=== PATIENT | female | born 1990 | race Caucasian/White ===

== ENCOUNTER → 2019-11-02 | Outpatient (CLI) | payer SELFPAY | END | disposition home or self-care (01) | PROVIDERS: Referring Provider Obstetrics & Gynecology; Visit Provider Obstetrics & Gynecology | DX: O99.282 Endocrine, nutritional and metabolic diseases complicating pregnancy, second trimester (principal); E05.90 Thyrotoxicosis, unspecified without thyrotoxic crisis or storm; Z3A.00 Weeks of gestation of pregnancy not specified | CPT/HCPCS: 36415 ==

== ENCOUNTER → 2020-02-17 | Outpatient (CLI) | payer OTHER, SELFPAY ==
[2020-02-17 12:12] LABS: Hematocrit 32.6 % (37-47); Mean Corp Hgb Conc 30.7 g/dL (32-36); Mean Corpuscular Hgb 25.6 pg (27.0-32.0); Mean Corpuscular Volume 83.4 fL (81-99); Mean Platelet Vol. 10.5 fl (6.2-12.0); Platelet Count 405 K/mm3 (150-450); RBC Distribution Width CV 16.3 % (11.6-14.6); RBC Distribution Width SD 48.4 fl (35.1-43.9); Red Blood Count 3.91 M/mm3 (4.2-5.4); White Blood Count 10.7 K/mm3 (4.4-11.0)
[2020-02-17 12:23] LABS: Prothrombin Time (Protime)PT. 13.2 SECONDS (11.7-14.9)
[2020-02-17 12:24] LABS: Partial Thromboplast Time 26.3 Seconds (24.1-36.2)
[2020-02-17 12:44] LABS: AST(SGOT) 14 U/L (15-37); Alanine Aminotransfer ALT/SGPT 14 U/L (13-56); Creatinine, Serum 0.47 mg/dL (0.55-1.02); EST Glomerular Filtration Rate 167 mL/min (>60); Est Glom Filt Rate - Afr Amer 202 mL/min (>60); Uric Acid 3.8 mg/dL (2.6-6.0)
== END | disposition home or self-care (01) ==
PROVIDERS: Visit Provider Obstetrics & Gynecology
DX: O13.3 Gestational [pregnancy-induced] hypertension without significant proteinuria, third trimester (principal); Z3A.00 Weeks of gestation of pregnancy not specified
CPT/HCPCS: 36415; 82565; 84450; 84460; 84550; 85027; 85610; 85730

== ENCOUNTER → 2020-02-18 | Outpatient (CLI) | payer OTHER, SELFPAY ==
[2020-02-18 10:37] LABS: 24 Hour Urine Protein 159.6 mg/24HR (<150 MG/24HR); 24HR. UA Prot. Total Volume 2800 mL; Urine Protein (24 Hour) < 6.0 mg/dL (<11.9)
== END | disposition home or self-care (01) ==
PROVIDERS: Referring Provider Obstetrics & Gynecology; Visit Provider Obstetrics & Gynecology
DX: O13.3 Gestational [pregnancy-induced] hypertension without significant proteinuria, third trimester (principal); Z3A.00 Weeks of gestation of pregnancy not specified
CPT/HCPCS: 81050; 84156

== ENCOUNTER 2020-02-23 03:30 | Inpatient (IN) | payer OTHER, MEDICAID, SELFPAY ==
[2020-02-23] VITALS (49 sets, daily range): BP systolic 122–165; BP diastolic 58–98; PULSE 68–115; RESP 14–16; TEMP 36.6–37.3; O2SAT 90–100; BMI 33.5
[2020-02-23 03:23] LABS: ROM Internal Control Test YES-OK TO RESULT pt. (Internal QC)
[2020-02-23 03:25] LABS: ROM Patient Test POSITIVE (Negative)
[2020-02-23] MEDS: Lactated Ringers 1,000 ML 50 ML IV (04:00)
[2020-02-23] MEDS: Betamethasone/Betamethasone 30 MG/5 ML Vial 12 MG IM (04:09)
[2020-02-23 04:15] LABS: Absolute Lymphocyte Count 2.17 X10^3/uL (0.83-4.51); Absolute Neutrophil Count 9.3 X10^3/uL (2.0-7.7); Basophil# 0.03 X10^3/uL; Basophil% 0.2 % (0-1); Eosinophil# 0.15 X10^3/uL; Eosinophils% 1.2 % (0-5); Hematocrit 30.6 % (37-47); Hemoglobin 9.5 g/dL (12.0-15.0); Lymphocyte # 2.17 X10^3/ul (4.0); Lymphocyte % 16.7 % (19-41); Mean Corpuscular Hgb 25.3 pg (27.0-32.0); Mean Corpuscular Volume 81.4 fL (81-99); Monocyte# 1.26 X10^3/uL; Monocyte% 9.7 % (0-10); NRBC Flagged by Analyzer 0 % (0-5); Neutrophil # 9.27 X10^3/uL (2.7-7.7); Neutrophil % 71.3 % (47-70); Platelet Count 402 K/mm3 (150-450); RBC Distribution Width CV 16.3 % (11.6-14.6); Red Blood Count 3.76 M/mm3 (4.2-5.4)
--- NOTE | 2020-02-23 06:17 | PCM.HP.OB ---
- Problem List (1) 36 weeks gestation of Status: Acute (2) PROM (premature rupture of membranes) Status: Acute Qualifiers: PROM onset of labor timing: unspecified duration between rupture of membranes and onset of labor PROM gestational age: -third trimester Qualified Code(s): O42.913 - premature rupture of membranes, unspecified as to length of time between rupture and onset of labor, third trimester History Date of Admission: 02/23/20 Final NITIN: 03/20/20 Final NITIN Source: US <20 weeks Gestational age: 36 Weeks and 2 Days History of this : This is a 30 year-old, G [2], P [0010], at 36.2 weeks gestational age presenting with c/o leaking of fluid 0145h. Reports contractions every 10 minutes. issues: -Distance between pulmonary artery and aorta extended. ECHO with MFM wnl. Aneuploidy screening declined. Declined Peds Cards ECHO. Peds at delivery. -Uterine synchiae vs. remnant of vanishing twin gestation -Iron deficiency anemia -Possible placental accessory lobe -LGSIL PAP Surgical History: Surgical History (Last Updated 02/23/20 @ 06:[address] Leti Gr MD) H/O dilation and curettage Z98.890 termination 11/2018 History of tonsillectomy Z90.89 Allergies No Known Allergies Allergy (Verified 02/23/20 02:54) Home Medications: Home Medications Vits [Prenatabs FA] 1 tab PO DAILY 02/23/20 Smoking Status: Former smoker Alcohol: None Number of Fetus(es): 1 NST - FHR Rate Baby A Baseline: 130 Variability:: Moderate Accelerations:: 15 x 15 Decelerations:: None NST Reactive:: Yes FHR Category:: Category I Uterine Activity:: 07/01 History Past Pregnancies: Past Pregnancies Delivery Date Name GA/ Weeks Outcome Route Wt Infant Sex Labor Length Anesthesia Delivery Location 11/2018 13 Elective TOP Suction D&C [facility] Labs: Mom's Problem List Problem Status Onset Code 36 weeks gestation of Acute Z3A.36 PROM (premature rupture of membranes) Acute O42.90 Mom's Labs & Results 02/23/20 02/23/20 02/23/20 03:06 03:55 03:55 WBC 13.0 H RBC 3.76 L Hgb 9.5 L Hct 30.6 L MCV 81.4 MCH 25.3 L MCHC 31.0 L RDW Std Deviation 48.0 H RDW Coeff of Vicky 16.3 H Plt Count 402 MPV 10.0 Immature Gran % (Auto) 0.900 Neut % (Auto) 71.3 H Lymph % (Auto) 16.7 L [place] % (Auto) 9.7 Eos % (Auto) 1.2 Baso % (Auto) 0.2 Absolute Neuts (auto) 9.3 H Absolute Lymphs (auto) 2.17 Nucleated RBC % 0 Vag Amniotic Fld Detect POSITIVE H Blood Type B POSITIVE Antibody Screen NEGATIVE Course Did the patient receive Yes care? Labs Blood Type: B RH: POSITIVE RPR/VDRL/Syphilis Nonreactive Rubella status Immune HbSAg Negative Date Done: 08/11/19 Chlamydia Negative Gonorrhea Negative HIV/AIDS Non-Reactive Other Lab Procedures/Results/ GBS collect 02/21 in office Comments: Current Obstetrical History Gestational Diabetes No Incompetent Cervix No Infertility No IUGR No Macrosomia No Hypertension/Pre-eclampsia Yes: pt states she has had hypertension the past couple of weeks Placenta Previa/Abruption No PTL/PROM No Uterine anomaly No Oligohydramnios No Polyhydramnios No Multiple gestation No: Past Medical History Asthma No Diabetes No Hypertension No Heart disease No Mitral valve prolapse No Neurologic/Seizure disorder/ No Migraines Kidney disease No Liver disease No Varicosities No Clotting disorders/Hx of DVT No Thyroid Dysfunction No Other medical diseases No Psychiatric disorders No Major trauma No Abnormal PAP smear Yes: 07/2019, will look into after Sleep apnea No Mammogram in the last 2 years No Social History Marital Status: SINGLE Alleged father oTnio Hx Smoking Yes Smoking Status Former smoker How long have you used vaped last year and only last year per pt, hx substances (years)? of marijuana use 05/2019 per chart Expected Delivery Method: Spontaneous Vaginal Describe any other labor & delivery plans:: Betamethasone. Pitocin. BABY CATCH - Tonio. planned Number of Visits: 10 Review of Systems Constitutional: Denies: Chills, Fever HEENT: Denies: Head Aches, Visual Changes Cardiovascular: Denies: Chest Pain Respiratory: Denies: Cough, Shortness of Breath Gastrointestinal: Denies: Abdominal Pain, Nausea, Vomiting Gynecological: Denies: Vaginal bleeding Physical Exam Vitals: Vital Signs Temp Pulse BP Pulse Ox 97.9 F 85 140/95 H 98 02/23/20 05:49 02/23/20 06:02 02/23/20 06:02 02/23/20 05:49 General: Alert, Oriented x3, Cooperative, No apparent distress HEENT: Atraumatic, Normocephalic Cardiovascular: Regular rate, Regular Rhythm, Normal S1, Normal S2 Lungs: Clear to auscultation, Normal air movement Abdomen: Soft, Non Tender, Non-Distended, Gravid Extremities:: No edema, No tenderness/swelling Neurological: Neuro grossly intact Estimated gestational size: Appropriate for gestational size Presentation: Cephalic Cervix Dilation (cm): 2 Effacement (%): 40 - per RN exam Assessment/Plan All Active Problems 36 weeks gestation of (Acute) PROM (premature rupture of membranes) (Acute) This is a 30 year-old, G [2], P [0], at 36 2/7 weeks gestational age with PROM, Cat I FHR. -Reviewed low however increased risk for breathing difficulties including RDS due to late term delivery, as well as potential feeding/coordination difficulties and hypoglycemia. Betamethasone administered for FLM. -Advised pitocin with review of r/b/i. Patient agrees with plan. IOL risks and admission consents reviewed. -Outpatient GBS culture pending - Ampicillin -Patient and partner given opportunity to ask questions and questions answered to their satisfaction. -Maternal and statuses reassuring.
[2020-02-23] MEDS: Oxytocin 30 units/NS 500 ml 30 UNITS/500 ML IV.SOLN IV (06:23)
--- NOTE | 2020-02-23 08:39 | PCM.PN.BLA ---
STROKE Vital Signs/Narrative: Vital Signs Temp Pulse BP Pulse Ox 02/23/20 08:04 82 127/58 H 02/23/20 07:16 98.1 F 80 144/91 H 02/23/20 06:45 83 130/88 H 02/23/20 06:02 85 140/95 H 02/23/20 05:49 97.9 F 79 98
[2020-02-23] MEDS: Lactated Ringers 500 ML 999 ML IV (10:21)
[2020-02-23] MEDS: fentaNYL-bupivacaine (epidural) 100 ML BAG EPIDURAL (11:42)
[2020-02-23] MEDS: Lactated Ringers 1,000 ML 200 ML IV (11:43)
--- NOTE | 2020-02-23 13:23 | PCM.PN.BLA ---
Progress Note Returned call to RN. Patient comfortable with epidural. Questionable late heart decelerations with recent exam /-1. Pitocin at 10mu/min. Contractions previously q2min, however difficulty tracing on patient side. On my reviewed FHR 130, minimal variability, + accelerations prior to recent 10-15 minutes with decelerations. Patient to be repositioned and will reattempt IUPC placement. STROKE Vital Signs/Narrative: Vital Signs Temp Pulse BP Pulse Ox 02/23/20 12:39 89 122/75 H 02/23/20 12:38 98.1 F 02/23/20 11:45 77 134/82 H 02/23/20 11:44 99 02/23/20 11:39 83 129/71 H 99 02/23/20 11:34 78 129/72 H 100 02/23/20 11:33 88 90 02/23/20 11:30 96 137/83 H 02/23/20 11:29 99 02/23/20 11:25 111 H 134/86 H 02/23/20 11:24 105 H 99 02/23/20 11:20 103 H 134/79 H 02/23/20 11:19 99 02/23/20 11:14 97 142/86 H 100 02/23/20 11:10 68 151/98 H 02/23/20 11:09 70 100 02/23/20 11:04 88 100 02/23/20 10:04 97.8 F 81 132/71 H 97
--- NOTE | 2020-02-23 15:40 | PCM.PN.BLA ---
Progress Note Progress Note Call from RN Pt with late decelerations with pushing. Pt is making progress with each push. Vital Signs Temp Pulse BP Pulse Ox 02/23/20 15:30 98.6 F 105 H 145/85 H 97 02/23/20 14:57 108 H 141/75 H 02/23/20 14:56 98.2 F 98 02/23/20 13:38 97 142/93 H 02/23/20 13:37 98.0 F 02/23/20 12:39 89 122/75 H 02/23/20 12:38 98.1 F 02/23/20 11:45 77 134/82 H 02/23/20 11:44 99 02/23/20 11:39 83 129/71 H 99 02/23/20 11:34 78 129/72 H 100 02/23/20 11:33 88 90 02/23/20 11:30 96 137/83 H 02/23/20 11:29 99 02/23/20 11:25 111 H 134/86 H 02/23/20 11:24 105 H 99 02/23/20 11:20 103 H 134/79 H 02/23/20 11:19 99 02/23/20 11:14 97 142/86 H 100 02/23/20 11:10 68 151/98 H 02/23/20 11:09 70 100 02/23/20 11:04 88 100 02/23/20 10:04 97.8 F 81 132/71 H 97 02/23/20 09:11 86 127/84 H 02/23/20 09:10 97.9 F 97 02/23/20 08:04 82 127/58 H 02/23/20 07:16 98.1 F 80 144/91 H 02/23/20 06:45 83 130/88 H 02/23/20 06:02 85 140/95 H 02/23/20 05:49 97.9 F 79 98 Plan: Reviewed tracing, 130/mod ricki/-accel/late decels with pushing. Pt is making progress with each push, now CE: 10/100/+2 to +3. Based on progress being made and nearing delivery will continue pushing. Will discuss operative delivery with pt if needed STROKE Vital Signs/Narrative: Vital Signs Temp Pulse BP Pulse Ox 02/23/20 15:30 98.6 F 105 H 145/85 H 97 02/23/20 14:57 108 H 141/75 H 02/23/20 14:56 98.2 F 98 02/23/20 13:38 97 142/93 H 02/23/20 13:37 98.0 F 02/23/20 12:39 89 122/75 H 02/23/20 12:38 98.1 F 02/23/20 11:45 77 134/82 H 02/23/20 11:44 99
[2020-02-23] MEDS: Oxytocin 30 units/NS 500 ml 30 UNITS/500 ML IV.SOLN 999 UNITS IV (16:41)
--- NOTE | 2020-02-23 17:23 | PCM.OPRPT ---
Vaginal Delivery Maternal Presentation: Spontaneous Rupture of Membranes - PPROM Method of Induction: Pitocin Medical Reason for Induction: Premature Rupture of Membranes Amniotic Membrane Rupture Type: Spontaneous Amniotic Fluid Description: Clear Final NITIN: 03/20/20 Final NITIN Source: US <20 weeks Gestational age: 36 Weeks and 2 Days [place] doctor who attended delivery (if requested by OB): Maria Guadalupe Luther Date of Procedure: 02/23/20 Pre-Operative Diagnosis: PPROM, Cardiac Foci Post-Operative Diagnosis: PPROM, Cardiac Foci Surgery/ Procedure Performed: Spontaneous Vaginal Delivery Type of Anesthesia: Epidural Description of Procedure: of a viable female , cephalic. Head and shoulders delivered with ease. Cord cut and clamped x2. Baby handed to mom. NICU present for delivery. Placenta delivered via cord traction and fundal massage. First degree and right labial laceration noted and repaired in typical fashion. EBL 250cc APGARs 8/9 Medications given after delivery: IV Pitocin
[2020-02-24] VITALS (14 sets, daily range): BP systolic 126–150; BP diastolic 74–96; PULSE 60–94; RESP 15–16; TEMP 36.3–36.9; O2SAT 82–99
[2020-02-24] MEDS: Acetaminophen 500 MG Tablet 1000 MG PO (02:55)
--- NOTE | 2020-02-24 08:21 | PN.OBGYN_ITS ---
Patient Problems: Active and Suspected Problems 36 weeks gestation of (Acute) PROM (premature rupture of membranes) (Acute) Subjective: Objective: No overnight complaints. Pain well controlled. Normal lochia. Denies chest pain, shortness of breath, nausea vomiting. - Physical Exam Vitals/I&O's: Vital Signs Temp Pulse Resp BP Pulse Ox 98.5 F 93 16 138/82 H 98 02/24/20 03:06 02/24/20 03:06 02/24/20 03:06 02/24/20 03:06 02/23/20 18:47 Oxygen Delivery Method Room Air Weight: 207 lb 6.4 oz Body Mass Index (BMI) 33.5 Intake and Output for Last 24 Hours 02/22/20 02/23/20 02/24/20 23:59 23:59 23:59 Intake Total 3060.16 / 3060.16 Output Total 3100 / 3100 Balance -39.84 / -39.84 General: Oriented x3, Cooperative HEENT: Atraumatic, Normocephalic Oral: Moist Mucosa Neck: Supple Abdomen: Non Tender, Non-Distended, Gravid - Firm at umbilicus Psych/Mental Status: Normal Affect, Appropriate, Alert and oriented to time, place, person, mood and affect Current Medications Acetaminophen (Tylenol) 1,000 mg PO Q8H PRN PRN PRN Reason: Pain Score 1-10/10 Last Admin: 02/24/20 02:55 Dose: 1,000 mg Documented by: Bisacodyl (Dulcolax) 10 mg RECTAL UD PRN PRN Reason: If no BM Dibucaine (Dibucaine) 1 applic TOPICAL TID PRN PRN; Protocol PRN Reason: Discomfort Hydrocortisone (Hytone) 1 applic TOPICAL TID PRN PRN; Protocol PRN Reason: Discomfort Ibuprofen (Motrin) 600 mg PO Q6H PRN PRN PRN Reason: Pain Score 1-10/10 Methylergonovine Maleate (Methergine) 0.2 mg IM X1 PRN PRN Reason: Excess bleeding/uterine atony Ondansetron HCl (Zofran) 4 mg IV Q4H PRN PRN PRN Reason: Nausea Senna/Docusate Sodium (Senokot-S, Yarely-Colace) 1 - 2 tablet PO DAILY PRN PRN PRN Reason: Constipation Simethicone (Mylicon) 80 mg PO PCHS PRN PRN Reason: Indigestion/Stomach pain Sodium Chloride () 5 - 15 ml IV UD PRN PRN Reason: SALINE FLUSH Medical Necessity - Tobacco Use Smoking Status: Former smoker Assessment/Plan All Active Problems 36 weeks gestation of (Acute) PROM (premature rupture of membranes) (Acute) day 1 status post spontaneous vaginal delivery after PPROM at 36 weeks gestation. Breast-feeding. For Nexplanon placement at visit. Pain well controlled on Tylenol and ibuprofen. If okay with etl data architect okay to DC home today.
--- NOTE | 2020-02-24 08:25 | DCINST_ITS ---
Discharge Activity: Return to Normal Activity, May Shower May resume sexual activity in: 6 weeks Weight Bearing Status: Weight bearing as tolerated Call your doctor if your incision/area has: Sudden Increased Bleeding, Foul Smelling Discharge Call your doctor if you observe: Fever of 101 or Higher, Shortness of breath, Chest pain Additional Instructions: If you experience any of the following, contact your healthcare provider. * Bleeding that soaks a pad every hour for 2 hours * Fever 100.4 or higher * Unrelieved incision or abdominal pain * Swelling, redness, discharge or bleeding from your incision or episi otomy site * Your incision begins to separate * Problems urinating (including inability to urinate or burning while urinating). * Visual changes * Severe headache * Flu-like symptoms * Pain or redness in one of both of your breasts * Pain, warmth, tenderness or swelling in your legs, especially the calf area * Frequent nausea and vomiting * Symptoms of depression or anxiety If you experience any of the following, call 911 or go to the nearest Emergency Room. * Chest pain * Problems breathing * Seizure activity * Partial or complete paralysis of a body part, slurred speech, weakness or drooping of the face, or a sudden inability to walk or hold your balance Allergies/Adverse Reactions: Allergies No Known Allergies Allergy (Verified 02/23/20 02:54) Medications to take at Discharge Vits [Prenatabs FA] 1 tab PO DAILY 02/23/20 Please Follow Up With: Camille Corrigan CNM When: 6 weeks Primary Care Physician: Care Physician,No Primary [Primary Care Provider] - Test Results: Test results from this visit will be discussed in further detail at your follow- up appointment, if applicable.
--- NOTE | 2020-02-24 08:25 | PCM.DCVAG ---
Discharge Activity: Return to Normal Activity, May Shower May resume sexual activity in: 6 weeks Weight Bearing Status: Weight bearing as tolerated Call your doctor if your incision/area has: Sudden Increased Bleeding, Foul Smelling Discharge Call your doctor if you observe: Fever of 101 or Higher, Shortness of breath, Chest pain Additional Instructions: If you experience any of the following, contact your healthcare provider. Bleeding that soaks a pad every hour for 2 hours Fever 100.4 or higher Unrelieved incision or abdominal pain Swelling, redness, discharge or bleeding from your incision or episiotomy site Your incision begins to separate Problems urinating (including inability to urinate or burning while urinating). Visual changes Severe headache Flu-like symptoms Pain or redness in one of both of your breasts Pain, warmth, tenderness or swelling in your legs, especially the calf area Frequent nausea and vomiting Symptoms of depression or anxiety If you experience any of the following, call 911 or go to the nearest Emergency Room. Chest pain Problems breathing Seizure activity Partial or complete paralysis of a body part, slurred speech, weakness or drooping of the face, or a sudden inability to walk or hold your balance Allergies/Adverse Reactions: Allergies No Known Allergies Allergy (Verified 02/23/20 02:54) Medications to take at Discharge Vits [Prenatabs FA] 1 tab PO DAILY 02/23/20 Please Follow Up With: Camille Corrigan CNM When: 6 weeks Primary Care Physician: Care Physician,No Primary [Primary Care Provider] - Test Results: Test results from this visit will be discussed in further detail at your follow-up appointment, if applicable.
[2020-02-24] MEDS: Ibuprofen 600 MG Tablet PO ×2 (10:13→19:49)
--- NOTE | 2020-02-24 14:12 | NURSING ---
REVIEWED STUDENT'S CHARTING FOR COMPLETENESS
--- NOTE | 2020-02-24 16:52 | NURSING ---
This RN agrees with Wind Operations Supervisor's charting.
[2020-02-25] VITALS (13 sets, daily range): BP systolic 135–156; BP diastolic 80–104; PULSE 45–78; RESP 16; TEMP 36.6–36.8; O2SAT 82–100
[2020-02-25] MEDS: Ibuprofen 600 MG Tablet PO ×3 (03:39→20:36)
--- NOTE | 2020-02-25 07:39 | PN.OBGYN_ITS ---
Patient Problems: Active and Suspected Problems 36 weeks gestation of (Acute) PROM (premature rupture of membranes) (Acute) Subjective: No issues overnight. Infant having phototherapy. She is anxious for the 10 o'clock level. She denies significant pain. COntinues Ibuprofen. Denies heavy lochia or lower extremity swelling. Infant latches and nurses well. Objective: AVSS - Physical Exam Vitals/I&O's: Vital Signs Temp Pulse Resp BP Pulse Ox 98.3 F 61 16 139/89 H 99 02/25/20 07:35 02/25/20 07:35 02/25/20 07:35 02/25/20 07:35 02/25/20 07:35 Oxygen Delivery Method Room Air Weight: 94.075 kg Body Mass Index (BMI) 33.5 Intake and Output for Last 24 Hours 02/23/20 02/24/20 02/25/20 23:59 23:59 23:59 Intake Total 3060.16 / 3060.16 Output Total 3100 / 3100 Balance -39.84 / -39.84 General: Alert, Oriented x3, Cooperative, No apparent distress HEENT: Atraumatic, Normocephalic Lungs: Normal air movement Cardiovascular: Regular rate, Regular Rhythm, Normal S1, Normal S2, - - HR 60 bpm Abdomen: Soft, Non Tender, Non-Distended, - - Fundus firm at umbulicus, lochia scant Extremities: No edema, No Calf Tenderness Neurological: Neuro grossly intact Psych/Mental Status: Normal Affect, Appropriate, Alert and oriented to time, grace ce, person, mood and affect Current Medications Acetaminophen (Tylenol) 1,000 mg PO Q8H PRN PRN PRN Reason: Pain Score 1-1010 Last Admin: 02/24/20 02:55 Dose: 1,000 mg Documented by: Bisacodyl (Dulcolax) 10 mg RECTAL UD PRN PRN Reason: If no BM Dibucaine (Dibucaine) 1 applic TOPICAL TID PRN PRN; Protocol PRN Reason: Discomfort Hydrocortisone (Hytone) 1 applic TOPICAL TID PRN PRN; Protocol PRN Reason: Discomfort Ibuprofen (Motrin) 600 mg PO Q6H PRN PRN PRN Reason: Pain Score 1-10/10 Last Admin: 02/25/20 03:39 Dose: 600 mg Documented by: Methylergonovine Maleate (Methergine) 0.2 mg IM X1 PRN PRN Reason: Excess bleeding/uterine atony Ondansetron HCl (Zofran) 4 mg IV Q4H PRN PRN PRN Reason: Nausea Senna/Docusate Sodium (Senokot-S, Yarely-Colace) 1 - 2 tablet PO DAILY PRN PRN PRN Reason: Constipation Simethicone (Mylicon) 80 mg PO PCHS PRN PRN Reason: Indigestion/Stomach pain Sodium Chloride () 5 - 15 ml IV UD PRN PRN Reason: SALINE FLUSH Medical Necessity - Tobacco Use Smoking Status: Former smoker Assessment/Plan All Active Problems 36 weeks gestation of (Acute) PROM (premature rupture of membranes) (Acute) This is a 30 year-old, G [2], P [0101 PPD # 2 s/p doing well. - -B positive -d/c home today. Will d/c to hotel if infant not discharged
--- NOTE | 2020-02-25 13:27 | NURSING ---
Issue with BP monitor at this time. Monitor continuing to increase in pressure cutting circulation off of patients arm then reading BP as elevated. Vitals cart from clean utility room obtained and BP checked again. Result 140/95 recorded. Patient reports this being a more normal BP for her. Denies signs/symptoms of hypertension. Will continue to monitor.
[2020-02-25] MEDS: Acetaminophen 500 MG Tablet 1000 MG PO (20:39)
[2020-02-25 21:57] LABS: Absolute Lymphocyte Count 3.58 X10^3/uL (0.83-4.51); Absolute Neutrophil Count 8.1 X10^3/uL (2.0-7.7); Basophil# 0.07 X10^3/uL; Basophil% 0.5 % (0-1); Hematocrit 32.8 % (37-47); Lymphocyte # 3.58 X10^3/ul (4.0); Lymphocyte % 25.7 % (19-41); Mean Corp Hgb Conc 30.5 g/dL (32-36); Mean Corpuscular Hgb 25.4 pg (27.0-32.0); Mean Corpuscular Volume 83.5 fL (81-99); Mean Platelet Vol. 9.9 fl (6.2-12.0); Monocyte# 1.39 X10^3/uL; NRBC Flagged by Analyzer 0 % (0-5); Neutrophil # 8.07 X10^3/uL (2.7-7.7); Neutrophil % 58.1 % (47-70); Platelet Count 383 K/mm3 (150-450); RBC Distribution Width CV 16.7 % (11.6-14.6); RBC Distribution Width SD 49.4 fl (35.1-43.9); Red Blood Count 3.93 M/mm3 (4.2-5.4); White Blood Count 13.9 K/mm3 (4.4-11.0)
[2020-02-25 22:22] LABS: ALB/GLOB Ratio 0.8 RATIO (0.9-2.4); AST(SGOT) 20 U/L (15-37); Alanine Aminotransfer ALT/SGPT 15 U/L (13-56); Albumin, Serum 2.9 g/dL (3.2-5.0); Alkaline Phosphatase 113 U/L (45-117); Anion Gap 6 (5-15); BUN 8 mg/dL (7-18); BUN/Creat Ratio 17.5 RATIO (10-20); Calcium,Total 9.1 mg/dL (8.5-10.1); Chloride 109 mmol/L (98-107); Creatinine, Serum 0.46 mg/dL (0.55-1.02); EST Glomerular Filtration Rate 173 mL/min (>60); Est Glom Filt Rate - Afr Amer 209 mL/min (>60); Estimated Creatinine Clearance 170.45 ml/min; Globulin 3.8 g/dL (2.2-4.2); Glucose 83 mg/dL (74-106); Potassium 3.6 mmol/L (3.5-5.1); Protein, Total 6.7 g/dL (6.4-8.2); Sodium Level 141 mmol/L (136-145); Uric Acid 4.3 mg/dL (2.6-6.0)
--- NOTE | 2020-02-25 22:57 | DCINST_ITS ---
Discharge Diet: No Restrictions Discharge Activity: Return to Normal Activity, No Restrictions, May Shower, May Take a Tub Bath May resume sexual activity in: 6 weeks Weight Bearing Status: Weight bearing as tolerated Call your doctor if your incision/area has: Sudden Increased Bleeding, Foul Smelling Discharge Additional Instructions: If you experience any of the following, contact your healthcare provider. * Bleeding that soaks a pad every hour for 2 hours * Fever 100.4 or higher * Unrelieved incision or abdominal pain * Swelling, redness, discharge or bleeding from your incision or episiotomy site * Your incision begins to separate * Problems urinating (including inability to urinate or burning while urinating). * Visual changes * Severe headache * Flu-like symptoms * Pain or redness in one of both of your breasts * Pain, warmth, tenderness or swelling in your legs, especially the calf area * Frequent nausea and vomiting * Symptoms of depression or anxiety If you experience any of the following, call 911 or go to the nearest Emergency Room. * Chest pain * Problems breathing * Seizure activity * Partial or complete paralysis of a body part, slurred speech, weakness or drooping of the face, or a sudden inability to walk or hold your balance Allergies/Adverse Reactions: Allergies No Known Allergies Allergy (Verified 02/23/20 02:54) Medications to take at Discharge Vits [Prenatabs FA] 1 tab PO DAILY 02/23/20 Please Follow Up With: Hilario Evans MD - BP check When: 5-7 days Please Follow Up With: Camille Corrigan CNM - visit When: 6 weeks Primary Care Physician: Care Physician,No Primary [Primary Care Provider] - Test Results: Test results from this visit will be discussed in further detail at your follow- up appointment, if applicable.
--- NOTE | 2020-02-25 22:57 | PCM.DCVAG ---
Discharge Diet: No Restrictions Discharge Activity: Return to Normal Activity, No Restrictions, May Shower, May Take a Tub Bath May resume sexual activity in: 6 weeks Weight Bearing Status: Weight bearing as tolerated Call your doctor if your incision/area has: Sudden Increased Bleeding, Foul Smelling Discharge Additional Instructions: If you experience any of the following, contact your healthcare provider. Bleeding that soaks a pad every hour for 2 hours Fever 100.4 or higher Unrelieved incision or abdominal pain Swelling, redness, discharge or bleeding from your incision or episiotomy site Your incision begins to separate Problems urinating (including inability to urinate or burning while urinating). Visual changes Severe headache Flu-like symptoms Pain or redness in one of both of your breasts Pain, warmth, tenderness or swelling in your legs, especially the calf area Frequent nausea and vomiting Symptoms of depression or anxiety If you experience any of the following, call 911 or go to the nearest Emergency Room. Chest pain Problems breathing Seizure activity Partial or complete paralysis of a body part, slurred speech, weakness or drooping of the face, or a sudden inability to walk or hold your balance Allergies/Adverse Reactions: Allergies No Known Allergies Allergy (Verified 02/23/20 02:54) Medications to take at Discharge Vits [Prenatabs FA] 1 tab PO DAILY 02/23/20 Please Follow Up With: Hilario Evans MD - BP check When: 5-7 days Please Follow Up With: Camille Corrigan CNM - visit When: 6 weeks Primary Care Physician: Care Physician,No Primary [Primary Care Provider] - Test Results: Test results from this visit will be discussed in further detail at your follow-up appointment, if applicable.
--- NOTE | 2020-02-26 03:45 | NURSING ---
Labs and most recent BP relayed to Dr Suzanne Gr 135/95. Patient remains asymptomatic. Orders received to proceed with discharge via [facility] Dr Suzanne Gr. Pt instructed to follow up in office in 5-7 days. Patient verbalizes understanding, denies questions.
== END 2020-02-25 23:30 | disposition home or self-care (01) | DRG 807 ==
LOC: WPOUT 03:33 → WP 03:33
PROVIDERS: Obstetrics & Gynecology; Admitting Provider Obstetrics & Gynecology; Referring Provider Obstetrics & Gynecology; Visit Provider Obstetrics & Gynecology
DX: O42.013 Preterm premature rupture of membranes, onset of labor within 24 hours of rupture, third trimester (principal); Z37.0 Single live birth; O76 Abnormality in fetal heart rate and rhythm complicating labor and delivery; O70.0 First degree perineal laceration during delivery; Z3A.36 36 weeks gestation of pregnancy
CPT/HCPCS: 59025; 59050; 80053; 84112; 84550; 85025; 86850; 86900; 86901; 99218; J7120; G0378; J0290; J0702

== ENCOUNTER 2021-03-10 13:55 | Emergency (ER) | payer MEDICAID, SELFPAY ==
[2021-03-10 13:56] VITALS: BP 139/101; PULSE 105; RESP 16; TEMP 36.7; O2SAT 97; BMI 27.4
[2021-03-10 15:05] LABS: Absolute Lymphocyte Count 1.14 X10^3/uL (0.83-4.51); Absolute Neutrophil Count 14.7 X10^3/uL (2.0-7.7); Basophil# 0.04 X10^3/uL; Basophil% 0.2 % (0-1); Hematocrit 47.9 % (37-47); Hemoglobin 15.6 g/dL (12.0-15.0); Lymphocyte # 1.14 X10^3/ul (0.83-4.51); Mean Corp Hgb Conc 32.6 g/dL (32-36); Mean Corpuscular Hgb 30.1 pg (27.0-32.0); Mean Corpuscular Volume 92.3 fL (81-99); Monocyte# 0.42 X10^3/uL; Monocyte% 2.6 % (0-10); NRBC Flagged by Analyzer 0 % (0-5); Neutrophil # 14.65 X10^3/uL (2.7-7.7); Neutrophil % 89.8 % (47-70); Platelet Count 391 K/mm3 (150-450); RBC Distribution Width SD 47.8 fl (35.1-43.9); Red Blood Count 5.19 M/mm3 (4.2-5.4); White Blood Count 16.3 K/mm3 (4.4-11.0)
[2021-03-10] MEDS: Ondansetron 4 MG/2 ML Vial IV (15:14)
[2021-03-10 15:22] LABS: Anion Gap 9 (5-15); BUN 12 mg/dL (7-18); BUN/Creat Ratio 16.1 RATIO (10-20); Calcium,Total 9.4 mg/dL (8.5-10.1); Chloride 107 mmol/L (98-107); Creatinine, Serum 0.75 mg/dL (0.55-1.02); EST Glomerular Filtration Rate 98 mL/min (>60); Est Glom Filt Rate - Afr Amer 118 mL/min (>60); Estimated Creatinine Clearance 103.61 ml/min; Glucose 87 mg/dL (74-106); Sodium Level 142 mmol/L (136-145)
--- NOTE | 2021-03-10 15:37 | ED.RN ---
patient states she is feeling better and thinks nausea is from drinking alcohol and wants to go. States she does not have insurance and has to pay anyway. I asked if she waited long and she states she is fine, not upset and just decided she wants to go and does not need to see the doctor first. D/C IV and let pt go. She declined to sign AMA forms since she does not have insurance anyway. Patient left with male visitor and walked out on her own.
--- NOTE | 2021-03-10 15:37 | ED.VIS.GI ---
HPI HPI - GI History of Present Illness Chief Complaint: Nausea/Vomiting Narrative Narrative: Patient was next to be seen and was going back to see her when the nurse told me she just left. I told her the patient was the next to be seen. She stated that the patient stated she was feeling better and did not want to be evaluated and walked out. No ER physician evaluation to the patient had left. No ER physician charge. PFSH PFSH Home Medications vit,[id number] 1 tab PO DAILY 02/23/20 [History Last Taken 02/22/20 13:30] Allergy/AdvReac Type Severity Reaction Status Date / Time No Known Allergies Allergy Verified 02/23/20 02:54 Surgical History (Updated 02/23/20 @ 06:[address] Leti Gr MD) H/O dilation and curettage History of tonsillectomy Social History Smoking Status: Former smoker EXAM Physical Exam Const Vital Signs: 03/10/21 13:56 Temperature 98.0 F Temperature Source Temporal Pulse Rate 105 H Respiratory Rate 16 Blood Pressure 139/101 H Blood Pressure Mean 113 Pulse Ox 97 Oxygen Delivery Method Room Air [facility] MDM Lab Data Labs: Laboratory Results - last 24 hr 03/10/21 03/10/21 14:59 14:59 WBC 16.3 H RBC 5.19 Hgb 15.6 H Hct 47.9 H MCV 92.3 MCH 30.1 MCHC 32.6 RDW Std Deviation 47.8 H RDW Coeff of Vicky 14.0 Plt Count 391 MPV 10.0 Immature Gran % (Auto) 0.400 Neut % (Auto) 89.8 H Lymph % (Auto) 7.0 L [place] % (Auto) 2.6 Eos % (Auto) 0.0 Baso % (Auto) 0.2 Absolute Neuts (auto) 14.7 H Absolute Lymphs (auto) 1.14 Nucleated RBC % 0 Sodium 142 Potassium 4.0 Chloride 107 Carbon Dioxide 26.0 Anion Gap 9 BUN 12 Creatinine 0.75 Estim Creat Clear Calc 103.61 Est GFR (MDRD) Af Amer 118 Est GFR (MDRD) Non-Af 98 BUN/Creatinine Ratio 16.1 Glucose 87 Calcium 9.4 Discharge Plan Triage Chief Complaint: Nausea/Vomiting ED Provider: Robe Duffy Dx/Rx/DC Orders Prescriptions: No Action vit,[id number] 1 TABLET tablet 1 tab PO DAILY RF: 0 Primary Care Provider: Care Physician,No Primary
[2021-03-10 15:40] VITALS: RESP 17
[2021-03-10 15:40] LABS: Internal QC Validated? YES +Cl - CLEAR BKGD; Pregnancy, Serum, hCG Quali. NEGATIVE Negative
== END 2021-03-10 15:42 | disposition home or self-care (01) ==
LOC: ED 16:09
PROVIDERS: Emergency Provider Emergency Medicine
DX: R11.2 Nausea with vomiting, unspecified (principal); Z87.891 Personal history of nicotine dependence
CPT/HCPCS: 80048; 84703; 85025; 96374; 99283; A4216; J2405

== ENCOUNTER 2022-10-14 11:44 | Emergency (ER) | payer OTHER, MEDICAID, SELFPAY ==
[2022-10-14 11:45] VITALS: BP 134/94; PULSE 115; RESP 16; TEMP 36.6; O2SAT 97; BMI 29.2
--- NOTE | 2022-10-14 12:16 | EDS_ITS ---
HPI History of Present Illness Chief Complaint: Nausea/Vomiting Detail of Chief Complaint: Nausea and vomiting Informant: patient Narrative Narrative: Patient presents with nausea and vomiting that started last evening. Patient has vomited countless times. She has not thrown up about every 10 minutes. She denies any diarrhea. She describes some upper abdominal discomfort. Patient currently on her menstrual period. She denies urinary symptoms. She denies sick contacts or eating any undercooked or suspicious foods. Prior similar symptoms: No PFSH PFSH Medical History no medical history Home Medications vits,calcium no.78-iron fumarate-folic acid 29 mg-1 mg tablet 1 tab PO DAILY 02/23/20 [History Last Taken 02/22/20 13:30] ondansetron 4 mg disintegrating tablet 4 mg PO Q8H PRN PRN Nausea #10 tabs 10/14/22 [Rx Last Taken Unknown] Allergy/AdvReac Type Severity Reaction Status Date / Time No Known Allergies Allergy Verified 10/14/22 11:46 Family History no significant family his Surgical History (Updated 02/23/20 @ 06:[address] Leti Gr MD) H/O dilation and curettage History of tonsillectomy Surgical History no surgical history Social History Smoking Status: Former smoker ROS ROS ED Review of Systems ROS Unobtainable: other Constitutional Constitutional ED: Reports lethargy; Denies chills, fever(s), sweats or weight loss Eyes Eyes: Denies blurry vision, change in vision or diplopia ENT ENT ED: Denies rhinorrhea or sore throat Cardiovascular Cardiovascular: Denies chest pain, orthopnea or racing heartbeat Respiratory/Chest Respiratory/Chest: Reports dyspnea and dyspnea on exertion; Denies cough, orthopnea or sputum Gastrointestinal Gastrointestinal: Reports abdominal pain, nausea and vomiting; Denies diarrhea Genitourinary Genitourinary ED: Denies dysuria, hematuria or urinary frequency Musculoskeletal Musculoskeletal: Denies arthralgias, back pain, myalgias or neck pain Integumentary Denies abscess, Abrasions or rash Neurologic Neurologic: Denies headache(s) or weakness Psychiatric Psychiatric: Denies anxiety, depression or suicidal thoughts Endocrine Endocrinology: Denies polydipsia, polyphagia or polyuria Hematologic/Lymphatic Hematologic/Lymphatic: Denies easy bleeding, easy bruising or lymphadenopathy Allergic/Immunologic Allergic/Immunologic ED: Denies mouth swelling, tongue swelling or urticaria EXAM Physical Exam Const Vital Signs: 10/14/22 11:45 Temperature 98 F Temperature Source Temporal Pulse Rate 115 H Respiratory Rate 16 Blood Pressure 134/94 H Blood Pressure Mean 107 Pulse Ox 97 Oxygen Delivery Method Room Air Positive well nourished and well developed General Appearance ED: well developed and NAD HEENT Reports TM's clear and moist mucous membranes normocephalic and atraumatic; Negative for trauma or tenderness Tympanic Membrane ED: Yes TM's clear Eyes PERRL and EOMs intact bilaterally General Eye ED: Negative for pale conjunctiva or scleral icterus Neck no lymphadenopathy, supple and no JVD General: Negative for tenderness Chest Wall inspection of chest normal and palpation of chest normal Chest: Negative for tenderness Resp normal respiratory effort and clear to auscultation bilaterally Effort and Inspection: Negative for respiratory distress or pain with movement Auscultation: Negative for rhonchi, wheezes or diminished lung sounds Cardio regular rate, regular rhythm, S1 normal heart sound, S2 normal heart sound and no murmurs Peripheral Pulses: pulses 2+ throughout GI normal to inspection, nondistended, normoactive bowel sounds, soft to palpation, non-distended and no masses GI Narrative: Tenderness to palpation over the epigastric region and left upper quadrant. Mild guarding. There is no rebound, rigidity, or. Signs. No mass palpated. Back/Spine no CVA tenderness and no thoracic nor lumbar tenderness Extremity normal to inspection General Extremety ED: Negative for edema General Extremity: Negative for edema Neuro oriented x3, CN's II-XII intact bilaterally, no sensory deficits noted and gait normal Sensorium / Orientation: awake, alert, oriented to person, oriented to place and oriented to time Motor Exam: strength 5/5 throughout and strength abnormal Psych mental status grossly normal Skin no rashes or lesions noted and no wounds MDM MDM MDM Narrative Medical decision making narrative: Patient with vomiting that started last evening and then subsequently developed some upper abdominal discomfort. She had a family member with similar illness but had not been around a family member but was around a family member's kids. IV line established on arrival and was given liter normal saline fluid bolus. Patient was given Zofran 4 mg IV and her nausea improved dramatically. She had no further vomiting. She did complain of some ongoing nausea and I gave her second dose of Zofran. I gave her a GI cocktail. Her abdominal pain improved significantly with GI cocktail. On repeat exam at 1450 she has a benign abdomen that is soft with just minimal discomfort in the epigastric region. No rebound or rigidity. Clinically I suspect viral etiology to her symptoms. She is not having urinary symptoms and she did not give a urine does not want to wait to get 1. She would like to go home and rest. Patient will be given a prescription for Zofran. Patient advised to return if worsening pain, persistent vomiting, fever, or condition should worsen anyway. Lab Data Attestation: I reviewed the patient's lab results. Labs: Laboratory Results - last 24 hr 10/14/22 10/14/22 10/14/22 12:40 12:40 12:40 WBC 14.9 H RBC 5.23 Hgb 16.4 H Hct 48.3 H MCV 92.4 MCH 31.4 MCHC 34.0 RDW Std Deviation 46.3 H RDW Coeff of Vicky 13.6 Plt Count 392 MPV 9.8 Immature Gran % (Auto) 0.500 Neut % (Auto) 90.5 H Lymph % (Auto) 6.4 L [place] % (Auto) 2.3 Eos % (Auto) 0.0 Baso % (Auto) 0.3 Absolute Neuts (auto) 13.5 H Absolute Lymphs (auto) 0.95 Nucleated RBC % 0 Sodium 140 Potassium 4.0 Chloride 107 Carbon Dioxide 28.0 Anion Gap 5 BUN 14 Creatinine 0.92 Estim Creat Clear Calc 83.70 Est GFR (MDRD) Af Amer 91 Est GFR (MDRD) Non-Af 75 BUN/Creatinine Ratio 15.2 Glucose 110 H Calcium 9.9 Total Bilirubin 0.20 AST 17 ALT 24 Alkaline Phosphatase 62 Total Protein 8.9 H Albumin 4.7 Globulin 4.2 Albumin/Globulin Ratio 1.1 Lipase 58 Serum , Qual NEGATIVE Discharge Plan Triage Chief Complaint: Nausea/Vomiting ED Provider: Hermilo Christina Dx/Rx/DC Orders Clinical Impression: Vomiting, Abdominal pain Instructions: ED Abdominal Pain Unkn Cause Fem, ED Vomiting (Adult) Prescriptions: New ondansetron [ondansetron] 4 mg tablet,disintegrating 4 mg PO Q8H PRN PRN (Reason: Nausea) Qty: 10 0RF No Action vit,[id number] 1 TABLET tablet 1 tab PO DAILY Primary Care Provider: Care Physician,No Primary Referrals: Giovany Zuniga MD [Med Staff - Active Staff] - 3-5 Days Care Physician,No Primary [Primary Care Provider] - Disposition Disposition: Home, Self Care
[2022-10-14] MEDS: Ondansetron 4 MG/2 ML Vial IV ×2 (12:46→14:14)
[2022-10-14] MEDS: 0.9% Normal Saline 1,000 ML 1000 ML IV (12:46)
[2022-10-14 12:54] LABS: Absolute Lymphocyte Count 0.95 X10^3/uL (0.83-4.51); Absolute Neutrophil Count 13.5 X10^3/uL (2.0-7.7); Basophil# 0.04 X10^3/uL; Basophil% 0.3 % (0-1); Hematocrit 48.3 % (37-47); Hemoglobin 16.4 g/dL (12.0-15.0); Lymphocyte # 0.95 X10^3/ul (0.83-4.51); Lymphocyte % 6.4 % (19-41); Mean Corpuscular Hgb 31.4 pg (27.0-32.0); Mean Corpuscular Volume 92.4 fL (81-99); Mean Platelet Vol. 9.8 fl (6.2-12.0); Monocyte# 0.35 X10^3/uL; Monocyte% 2.3 % (0-10); NRBC Flagged by Analyzer 0 % (0-5); Neutrophil % 90.5 % (47-70); Platelet Count 392 K/mm3 (150-450); RBC Distribution Width CV 13.6 % (11.6-14.6); RBC Distribution Width SD 46.3 fl (35.1-43.9); Red Blood Count 5.23 M/mm3 (4.2-5.4); White Blood Count 14.9 K/mm3 (4.4-11.0)
[2022-10-14 12:59] LABS: Internal QC Validated? YES +Cl - CLEAR BKGD; Pregnancy, Serum, hCG Quali. NEGATIVE Negative
[2022-10-14 13:06] LABS: ALB/GLOB Ratio 1.1 RATIO (0.9-2.4); AST(SGOT) 17 U/L (15-37); Alanine Aminotransfer ALT/SGPT 24 U/L (13-56); Albumin, Serum 4.7 g/dL (3.2-5.0); Alkaline Phosphatase 62 U/L (45-117); Anion Gap 5 (5-15); BUN 14 mg/dL (7-18); BUN/Creat Ratio 15.2 RATIO (10-20); Calcium,Total 9.9 mg/dL (8.5-10.1); Chloride 107 mmol/L (98-107); Creatinine, Serum 0.92 mg/dL (0.55-1.02); EST Glomerular Filtration Rate 75 mL/min (>60); Est Glom Filt Rate - Afr Amer 91 mL/min (>60); Globulin 4.2 g/dL (2.2-4.2); Glucose 110 mg/dL (74-106); Lipase 58 U/L (13-75); Protein, Total 8.9 g/dL (6.4-8.2); Sodium Level 140 mmol/L (136-145)
[2022-10-14] MEDS: Mag Hydrox/Al Hydrox/Simeth 30 ML UDC PO (14:14)
[2022-10-14 15:12] VITALS: BP 131/99; PULSE 97; RESP 14; O2SAT 97
== END 2022-10-14 15:13 | disposition home or self-care (01) ==
PROVIDERS: Emergency Provider Emergency Medicine; Visit Provider Emergency Medicine
DX: R11.2 Nausea with vomiting, unspecified (principal); R10.9 Unspecified abdominal pain; R06.00 Dyspnea, unspecified; Z87.891 Personal history of nicotine dependence
CPT/HCPCS: 80053; 83690; 84703; 85025; 96361; 96374; 96376; 99284; J7030; A4216; J2405

== ENCOUNTER 2024-10-21 21:44 | Emergency (ER) | payer OTHER, SELFPAY ==
[2024-10-21 21:44] VITALS: BP 158/103; PULSE 108; RESP 16; TEMP 36.6; O2SAT 100
[2024-10-21 22:00] VITALS: BP 135/87
--- NOTE | 2024-10-21 22:05 | EX.ED.DYSGE1 ---
HPI History of Present Illness Chief Complaint: Hypertension Narrative Narrative: Patient is a 34-year-old female G4, P1 who presents to the emergency department with a chief complaint of elevated blood pressure, shortness of breath, chest pain. Patient states that with her previous she had hypertension at the end of this and since resolved. She states that today she felt some pressure in her chest and was overall not feeling well therefore she checked her blood pressure with a wrist cuff and noted was to be elevated to a systolic of the 180s. States that currently she is 7 weeks . Patient denies any history of blood clots denies any recent travel history. She states that she does have a history anxiety and feels like this has been elevated lately secondary to her worrying about her blood pressure. PFSH PFSH Home Medications ?Medication ?Instructions ?Recorded ?Last Taken ?Type vits,calcium no.78-iron 1 tab PO DAILY 02/23/20 02/22/20 13:30 History fumarate-folic acid 29 mg-1 mg tablet ondansetron 4 mg disintegrating 4 mg PO Q8H PRN PRN Nausea #10 tabs 10/14/22 Unknown Rx tablet Allergy/AdvReac Type Severity Reaction Status Date / Time No Known Allergies Allergy Verified 10/14/22 11:46 Surgical History History of tonsillectomy H/O dilation and curettage Social History (Updated 10/21/24 @ 22:11 by Ivania Garcia) household members: spouse housing: house Smoking Status: Former smoker ROS ROS ED ROS Narrative Constitutional: Denies fevers, chills, headaches Eyes: Denies change in vision double vision blurry vision Cardiovascular: Denies chest pain or palpitations currently Respiratory: Denies cough or wheezing shortness of breath currently Abdomen: Denies abdominal pain nausea vomit diarrhea : Denies vaginal bleeding, vaginal discharge or any other urinary symptoms Neurological: Denies numbness, weakness, tingling Musculoskeletal: Denies back pain Skin: Denies rashes or lesions EXAM Physical Exam Narrative Exam Narrative: General: Patient lying in bed rest, would not appear to be in acute distress Head: Atraumatic, normocephalic Eyes: PERRL bilaterally, EOMI bilateral, no conjunctival injection noted Neck: Soft, supple, trachea midline Cardiovascular: Regular in rhythm no murmurs gallops rubs noted Respiratory: Clear to auscultation bilaterally Abdomen: Soft, nondistended, nontender to palpation Extremities: +5/5 strength noted in the bilateral upper and lower extremities, radial pulses +2/4 in the upper extremities Neurological: Patient following commands knew that she was at [facility] year is 2024 Skin: Warm, dry, tact no rashes or lesions noted Const Vital Signs: 10/21/24 21:44 10/21/24 22:00 10/21/24 22:10 Temperature 98 F Temperature Source Oral Pulse Rate 108 H Respiratory Rate 16 Respiratory Effort Normal Non-Labored Respiratory Pattern Normal Blood Pressure 158/103 H 135/87 H Blood Pressure Mean 121 103 Pulse Ox 100 Oxygen Delivery Method Room Air 10/21/24 22:58 Temperature Temperature Source Pulse Rate 80 Respiratory Rate 18 Respiratory Effort Respiratory Pattern Blood Pressure 131/85 H Blood Pressure Mean 100 Pulse Ox 98 Oxygen Delivery Method MDM MDM MDM Narrative Medical decision making narrative: Patient is a 34-year-old female who presents to the emergency department chief complaint of hypertension in the setting of . On the differential diagnose includes Melamin to essential hypertension, hypertensive emergency. Once workup is obtained reviewed she will be reevaluated. After checking her blood pressure in the emergency department her blood pressure in the room was 132 systolic. Patient CBC reviewed and showed a white blood count of 14,000 she has a chronically elevated white blood cell count when compared to previous blood draws, hemoglobin is 12.5, plate count normal at 299. Patient sodium normal 137, potassium 3.7, creatinine was 0.58. Patient AST and ALT normal at 21 and 22 respectively. Patient's urinalysis is pending. Reevaluation the patient her blood pressure was noted to be systolic of 124 she remains asymptomatic she would like to go home at this point in time. She is advised to follow-up with OBG/SECURITY ASSESSOR team in outpatient setting return for worsening symptoms or concerns. She is agreeable this plan all question concerns answered she was discharged home in stable condition. Lab Data Labs: Laboratory Results - last 24 hr 10/21/24 22:02 WBC 14.1 H RBC 4.06 L Hgb 12.5 Hct 36.0 L MCV 88.7 MCH 30.8 MCHC 34.7 RDW Std Deviation 43.9 RDW Coeff of Vicky 13.5 Plt Count 299 MPV 10.1 Immature Gran % (Auto) 0.400 Neut % (Auto) 53.0 Lymph % (Auto) 32.1 [place] % (Auto) 10.0 Eos % (Auto) 4.1 Baso % (Auto) 0.4 Absolute Neuts (auto) 7.5 Absolute Lymphs (auto) 4.54 H Nucleated RBC % 0 Sodium 137 Potassium 3.7 Chloride 104 Carbon Dioxide 21.4 Anion Gap 12 BUN 9 Creatinine 0.58 L Est GFR (MDRD) Non-Af 123 BUN/Creatinine Ratio 14.6 Glucose 100 H Calcium 10.0 Total Bilirubin < 0.15 AST 21 ALT 22 Alkaline Phosphatase 48 Troponin T High Sens < 6 Total Protein 6.8 Albumin 4.1 Globulin 2.6 Albumin/Globulin Ratio 1.6 Discharge Plan Triage Chief Complaint: Hypertension ED Provider: [place] Dx/Rx/DC Orders Clinical Impression: Encounter for medical screening examination, Currently Prescriptions: No Action vit,[id number] 1 TABLET tablet 1 tab PO DAILY ondansetron [ondansetron] 4 mg tablet,disintegrating 4 mg PO Q8H PRN PRN (Reason: Nausea) Qty: 10 0RF Primary Care Provider: Care Physician,No Primary Referrals: Care Physician,No Primary [Primary Care Provider] - Activity Restrictions/Additional Instructions: Follow-up with your HAND SL[facility]TER in the outpatient setting. Your blood work here did not show any acute findings. Return with worsening symptoms or concerns. Your blood pressure was normal here in the emergency department. Ensure you are taking a vitamin daily. Print Language: Azeri Disposition Disposition: Home, Self Care
[2024-10-21 22:06] LABS: Absolute Lymphocyte Count 4.54 X10^3/uL (0.83-4.51); Absolute Neutrophil Count 7.5 X10^3/uL (2.0-7.7); Basophil# 0.06 X10^3/uL; Basophil% 0.4 % (0-1); Eosinophil# 0.58 X10^3/uL; Eosinophils% 4.1 % (0-5); Hemoglobin 12.5 g/dL (12.0-15.0); Lymphocyte # 4.54 X10^3/ul (0.83-4.51); Lymphocyte % 32.1 % (19-41); Mean Corp Hgb Conc 34.7 g/dL (32-36); Mean Corpuscular Hgb 30.8 pg (27.0-32.0); Mean Corpuscular Volume 88.7 fL (81-99); Mean Platelet Vol. 10.1 fl (6.2-12.0); Monocyte# 1.41 X10^3/uL; NRBC Flagged by Analyzer 0 % (0-5); POSITIVE MORPHOLOGY YES; Platelet Count 299 K/mm3 (150-450); RBC Distribution Width CV 13.5 % (11.6-14.6); RBC Distribution Width SD 43.9 fl (35.1-43.9); Red Blood Count 4.06 M/mm3 (4.2-5.4); White Blood Count 14.1 K/mm3 (4.4-11.0)
[2024-10-21 22:20] LABS: Differential Indicated SCAN CRITERIA MET
[2024-10-21 22:27] LABS: ALB/GLOB Ratio 1.6 RATIO (0.9-2.4); AST(SGOT) 21 U/L (<=31); Alanine Aminotransfer ALT/SGPT 22 U/L (<=34); Albumin, Serum 4.1 g/dL (3.5-5.0); Alkaline Phosphatase 48 U/L (35-104); Anion Gap 12 (5-15); BUN 9 mg/dL (4-19); BUN/Creat Ratio 14.6 RATIO (10-20); Carbon Dioxide 21.4 mmol/L (21.0-32.0); Chloride 104 mmol/L (98-108); Creatinine, Serum 0.58 mg/dL (0.70-1.20); EST Glomerular Filtration Rate 123 (>60); Globulin 2.6 g/dL (2.2-4.2); Glucose 100 mg/dL (70-99); Potassium 3.7 mmol/L (3.3-5.1); Protein, Total 6.8 g/dL (5.9-8.4); Sodium Level 137 mmol/L (133-145); Total Bilirubin < 0.15 mg/dL (0.00-1.30); Troponin T High Sensitivity < 6 ng/L (<=14)
[2024-10-21 22:31] LABS: Mucous, Urine 0 SEEN /hpf (<or=2+)
[2024-10-21 22:57] LABS: Color, Urine Yellow (Yellow); Glucose, Dipstick Normal (Normal); Ketone-Dipstick Negative (Negative); Leukocyte Esterase-Dipstick 100 /ul (Negative); Nitrite-Dipstick Negative (Negative); Occult Blood-Urine 25 /ul (Negative); Protein-Dipstick 15 mg/dl (Negative); Urine Bilirubin Dipstick Negative (Negative); Urine Clarity Clear (Clear); Urine Urobilinogen Normal (Normal); Urine pH 6.5 (5.0 - 8.0)
[2024-10-21 22:58] VITALS: BP 131/85; PULSE 80; RESP 18; O2SAT 98
[2024-10-21 23:12] VITALS: BP 124/79; PULSE 80; RESP 16; TEMP 36.6; O2SAT 99
[2024-10-21 23:31] LABS: Bacteria RARE /hpf (None Seen); Red Blood Cells-Urine 0-5 SEEN /hpf (0-5); Squamous Epithelial Cells - UA 0-5 SEEN /hpf (5-10); White Blood Cells 0-5 SEEN /hpf (0-5)
== END 2024-10-21 23:12 | disposition home or self-care (01) ==
PROVIDERS: Emergency Provider Emergency Medicine; Visit Provider Emergency Medicine
DX: O99.891 Other specified diseases and conditions complicating pregnancy (principal); R82.71 Bacteriuria; R07.9 Chest pain, unspecified; R06.02 Shortness of breath; O99.341 Other mental disorders complicating pregnancy, first trimester; F41.9 Anxiety disorder, unspecified; O99.111 Other diseases of the blood and blood-forming organs and certain disorders involving the immune mechanism complicating pregnancy, first trimester; D72.829 Elevated white blood cell count, unspecified; Z3A.01 Less than 8 weeks gestation of pregnancy; Z87.59 Personal history of other complications of pregnancy, childbirth and the puerperium; Z87.891 Personal history of nicotine dependence
CPT/HCPCS: 80053; 81001; 84484; 85025; 99282; A4216

== ENCOUNTER 2025-05-19 07:14 | Inpatient (IN) | payer OTHER, SELFPAY ==
[2025-05-19] VITALS (60 sets, daily range): BP systolic 119–155; BP diastolic 63–101; PULSE 82–122; RESP 16–20; TEMP 36.7–37.6; O2SAT 77–100; BMI 39.5
--- OUTSIDE RECORDS SUMMARY | 2025-05-19 07:14 | XMS RPT_ITS | CCD ---
Author Organization [facility] Providers Care Management Consultant Name Role Phone Unavailable Primary Care Provider UnavailDanish Paz Attending Unavailable Care Physician, No Primary Primary Care Unava ilable SEFERINO, FATEMEH Attending Unavailable HAURY, FATEMEH Referring Unavailable HAURY, FATEMEH Referring Unavailable PLOTTS, CHIARA Attending Unavailable HAURY, FATEMEH Referring Unavailable PLOTTS, CHIARA Referring Unavailable HAURY, FATEMEH Referring Unavailable PLOTTS, CHIARA Attending Unavailable HAKEAGAN, FATEMEH Referring Unavailable HAURY, FATEMEH Attending Unavailable ANITA SETHI Attending Unavailable BRIE, CHIARA Referring Unavailable MERVIN COHN Attending Unavailable MERVIN COHN Referring Unavailable LEONID CAMPBELL Attending Unavailable JAILENE BENAVIDES Attending Unavail able Medications Current Medications Medication Drug Class(es) Dates Sig (Normalized) Sig (Original) aspirin 81 mg delayed release oral tablet (7 sources) Platelet Aggregation Inhibitor, Nonsteroidal Anti-inflammatory Drug Start: 10-26-2024 take 1 tablet by mouth once daily aspirin, enteric coated (ECOTRIN LOW STRENGTH) 81 mg EC tablet Indications: with uncertain dates in first trimester (HCC) Take 1 tablet by mouth once daily. 90 tablet 3 10/26/2024 Active Docosahexaenoate (7 sources) take 1 tablet by mouth once daily docosahexaenoic acid (DHA ALGAL-900 ORAL) Take 1 tablet by mouth once daily. Active ondansetron 4 mg disintegrating oral tablet (2 sources) Serotonin-3 Receptor Antagonist Start: 10-14-2022 take 4 mg by mouth every eight hours as needed Ondansetron Active 4 MG PO EVERY 8 HOURS NEEDED October 14, 2022 12:00am Start: 04-06-2018 End: 10-26-2024 take 1 tablet by mouth every six hours as needed ondansetron orally disintegrating (ZOFRAN ODT) 4 mg disintegrating tablet Take 1 tablet by mouth every 6 hours as needed. 20 tablet 04/06/2018 10/26/2024 Discontinued PNV24/Iron Cbn&Gluc/FA/DSS/Dha (PRENATE ORAL) (7 sources) take 1 tablet by mouth once daily PNV24/Iron Cbn&Gluc/FA/DSS/Dha (PRENATE ORAL) Take 1 tablet by mouth once daily. Active Vit,Kteb65-Pefk-Wcuna (1 source) Start: 02-23-2020 take 1 tablet by mouth once daily Vit,Rzgw48-Nkpa-Ozcyf Active 1 TABLET PO DAILY February 23, 2020 12:00am Problems Active Problems Problem Classification Problem Date Documented Date Episodic/Chronic Abdominal pain (1 source) Abdominal pain; Translations: [Unspecified abdominal pain] 10-14-2022 Episodic Anxiety disorders (1 source) Anxiety disorder, unspecified; Translations: [Anxiety disorder affecting , antepartum (HCC)] Onset: 02-09-2025 Chronic Immunizations and screening for infectious disease (9 sources) Patient encounter status; Translations: [Encounter for screening for infections with a predominantly sexual mode of transmission] Onset: 10-26-2024 10-26-2024 Episodic Nausea and vomiting (2 sources) Nausea with vomiting, unspecified; Translations: [Vomiting] Onset: 04-06-2018 10-14-2022 Episodic Other circulatory disease (1 source) Elevated blood-pressure reading, without diagnosis of hypertension; Translations: [Elevated blood-pressure reading, without diagnosis of hypertension] Onset: 10-25-2024 Episodic Other complications of (11 sources) Maternal obesity complicating , childbirth and the puerperium, antepartum; Translations: [Obesity complicating , first trimester] Onset: 10-26-2024 10-26-2024 Chronic Other complications of (1 source) Obesity complicating , third trimester; Translations: [Obesity affecting in third trimester, unspecified obesity type (HCC)] Onset: 04-12-2025 Chronic Other complications of (1 source) Obesity complicating , first trimester; Translations: [Obesity affecting in first trimester, unspecified obesity type (HCC)] Onset: 02-09-2025 Chronic Other complications of (11 sources) High risk ; Translations: [Supervision of high risk , unspecified, first trimester] Onset: 10-26-2024 10-26-2024 Episodic Other complications of (11 sources) Other mental disorders complicating , unspecified trimester; Translations: [Mental disorders of mother, antepartum condition or complication] Onset: 10-26-2024 10-26-2024 Episodic Other complications of (1 source) Maternal care for excessive growth, third trimester, not applicable or unspecified; Translations: [Excessive growth affecting management of in third trimester, single or unspecified fetus (HCC)] Onset: 04-12-2025 Episodic Other complications of (1 source) Supervision of high risk , unspecified, third trimester; Translations: [Supervision of high risk in third trimester (HCC)] Onset: 04-12-2025 Episodic Other complications of (2 sources) Supervision of high risk , unspecified, second trimester; Translations: [Supervision of high risk in second trimester (HCC)] Onset: 01-09-2025 Episodic Other complications of (1 source) Uterine size-date discrepancy, third trimester; Translations: [Uterine size-date discrepancy, third trimester (HCC)] Onset: 03-29-2025 Episodic Other female genital disorders (9 sources) H/O: premature delivery; Translations: [Personal history of pre-term labor] Onset: 10-26-2024 10-26-2024 Episodic Other screening for suspected conditions (not mental disorders or infectious disease) (15 sources) Cancer cervix screening status; Translations: [Encounter for screening for malignant neoplasm of cervix] Onset: 10-26-2024 10-26-2024 Episodic Polyhydramnios and other problems of amniotic cavity (1 source) Premature rupture of membranes; Translations: [Premature rupture of membranes, unspecified as to length of time between rupture and onset of labor, unspecified weeks of gestation] 02-23-2020 Episodic Residual codes; unclassified (1 source) Gestation period, 36 weeks; Translations: [36 weeks gestation of ] 02-23-2020 Episodic Residual codes; unclassified (1 source) Gestation period, 7 weeks; Translations: [Less than 8 weeks gestation of ] 10-26-2024 Episodic Residual codes; unclassified (10 sources) History of gestational hypertension; Translations: [Personal history of other complications of , childbirth and the puerperium] Onset: 10-26-2024 10-26-2024 Episodic Residual codes; unclassified (4 sources) Gestation period, 12 weeks; Translations: [12 weeks gestation of ] 11-28-2024 Episodic Residual codes; unclassified (1 source) Gestation period, 9 weeks; Translations: [9 weeks gestation of ] 11-09-2024 Episodic Residual codes; unclassified (1 source) Gestation period, 18 weeks; Translations: [18 weeks gestation of ] 01-09-2025 Episodic Residual codes; unclassified (1 source) Gestation period, 23 weeks; Translations: [23 weeks gestation of ] 02-09-2025 Episodic Residual codes; unclassified (1 source) 33 weeks gestation of ; Translations: [33 weeks gestation of (HCC)] Onset: 04-26-2025 Episodic Residual codes; unclassified (1 source) 31 weeks gestation of ; Translations: [31 weeks gestation of (HCC)] Onset: 04-12-2025 Episodic Residual codes; unclassified (1 source) 29 weeks gestation of ; Translations: [29 weeks gestation of (HCC)] Onset: 03-29-2025 Episodic Residual codes; unclassified (1 source) 27 weeks gestation of ; Translations: [27 weeks gestation of (HCC)] Onset: 03-13-2025 Episodic Residual codes; unclassified (1 source) 23 weeks gestation of ; Translations: [23 weeks gestation of (HCC)] Onset: 02-09-2025 Episodic Unclassified (7 sources) [facility] Education - COMMON Onset: 10-26-2024 10-26-2024 Unclassified (7 sources) Education - [place] Onset: 10-26-2024 10-26-2024 Past or Other Problems Problem Classification Problem Date Documented Da te Episodic/Chronic Other complications of (9 sources) Vomiting of , unspecified; Translations: [Unspecified vomiting of , unspecified as to episode of care or not applicable] Onset: 10-26-2024 Resolved: 01-09-2025 10-26-2024 Episodic Other complications of (9 sources) Diseases of the digestive system complicating , first trimester; Translations: [Other current conditions classifiable elsewhere of mother, antepartum condition or complication] Onset: 10-26-2024 Resolved: 01-09-2025 10-26-2024 Episodic Other complications of (1 source) Supervision of high risk , unspecified, first trimester; Translations: [Encounter for supervision of high risk in first trimester, antepartum ([facility])] Onset: 11-28-2024 Episodic Other female genital disorders (1 source) Personal history of pre-term labor; Translations: [History of delivery] Onset: 10-26-2024 Episodic Other gastrointestinal disorders (1 source) Constipation, unspecified; Translations: [Constipation during in first trimester ([facility])] Onset: 10-26-2024 Episodic Other and delivery including normal (4 sources) with uncertain dates; Translations: [Encounter for supervision of normal , unspecified, first trimester] Onset: 10-26-2024 10-26-2024 Episodic Residual codes; unclassified (8 sources) History of induced termination of ; Translations: [Other specified postprocedural states] Onset: 10-26-2024 10-26-2024 Episodic Residual codes; unclassified (8 sources) History of premature rupture of membranes; Translations: [Personal history of other complications of , childbirth and the puerperium] Onset: 10-26-2024 10-26-2024 Episodic Residual codes; unclassified (1 source) 18 weeks gestation of ; Translations: [18 weeks gestation of ([facility])] Onset: 01-09-2025 Episodic Residual codes; unclassified (1 source) 12 weeks gestation of ; Translations: [12 weeks gestation of ([facility])] Onset: 11-28-2024 Episodic Residual codes; unclassified (3 sources) Personal history of other complications of , childbirth and the puerperium; Translations: [History of gestational hypertension] Onset: 10-26-2024 Episodic Residual codes; unclassified (1 source) Less than 8 weeks gestation of ; Translations: [7 weeks gestation of ([facility])] Onset: 10-26-2024 Episodic Residual codes; unclassified (1 source) Other specified postprocedural states; Translations: [History of induced ] Onset: 10-26-2024 Episodic Results Test Name Value Interpretation Reference Range Facility CBC W Auto Differential pane l (Bld)on 03-13-2025 Basophils (Bld) [#/Vol] 0.04 10*3/uL Normal <0.11 [facility] Comment on above: Order Comment: Speci men Type: BLOOD SPECIMEN Ordering Facility: [facility] Address: [address] [place] [address] Performed By: #### 5 7021-8 #### [facility] CLIA [id number] [address] [place] [address] [place] Basophils/100 WBC (Bld) 0.3 % Normal [facility] Comment on above: Order Comment: Speci men Type: BLOOD SPECIMEN Ordering Facility: [facility] Address: [address] [place] [address] Performed By: #### 5 7021-8 #### [facility] CLIA [id number] [address] [place] [address] [place] Differential cell count method Nom (Bld) Auto Normal [facility] Comment on above: Order Comment: Speci men Type: BLOOD SPECIMEN Ordering Facility: [facility] Address: [address] [place] [address] Performed By: #### 5 7021-8 #### [facility] CLIA [id number] [address] [place] [address] [place] Eosinophils (Bld) [#/Vol] 0.27 10*3/uL Normal <0.46 [facility] Comment on above: Order Comment: Speci men Type: BLOOD SPECIMEN Ordering Facility: [facility] Address: [address] [place] [address] Performed By: #### 5 7021-8 #### [facility] CLIA [id number] [address] [place] [address] [place] Eosinophils/100 WBC (Bld) 1.9 % Normal [facility] Comment on above: Order Comment: Speci men Type: BLOOD SPECIMEN Ordering Facility: [facility] Address: [address] [place] [address] Performed By: #### 5 7021-8 #### [facility] CLIA [id number] [address] [place] [address] [place] Erythrocyte distribution width (RBC) [Ratio] 14.5 % Normal 11.5-15.0 [facility] Comment on above: Order Comment: Speci men Type: BLOOD SPECIMEN Ordering Facility: [facility] Address: [address] [place] [address] Performed By: #### 5 7021-8 #### [facility] CLIA [id number] [address] [place] [address] [place] Hematocrit (Bld) [Volume fraction] 35.1 % Low 36.0-46.0 [facility] Comment on above: Order Comment: Speci men Type: BLOOD SPECIMEN Ordering Facility: [facility] Address: [address] [place] [address] Performed By: #### 5 7021-8 #### [id number] [address] [place] [address] [place] Hemoglobin (Bld) [Mass/Vol] 12.2 g/dL Normal 11.5-15.5 [facility] Comment on above: Order Comment: Speci men Type: BLOOD SPECIMEN Ordering Facility: [facility] Address: [address] [place] [address] Performed By: #### 5 7021-8 #### [facility] [id number] [address] [place] [address] [place] Immature granulocytes (Bld) [#/Vol] 0.17 10*3/uL High <0.10 [facility] Comment on above: Order Comment: Speci men Type: BLOOD SPECIMEN Ordering Facility: [facility] Address: [address] [place] [address] Performed By: #### 5 7021-8 #### [facility] [id number] [address] [place] [address] [place] Immature granulocytes/100 WBC (Bld) 1.2 % Normal [facility] Comment on above: Order Comment: Speci men Type: BLOOD SPECIMEN Ordering Facility: [facility] Address: [address] [place] [address] Performed By: #### 5 7021-8 #### [facility] CLIA [id number] [address] [place] [address] [place] Lymphocytes (Bld) [#/Vol] 1.71 10*3/uL Normal 1.00-4.00 [facility] Comment on above: Order Comment: Speci men Type: BLOOD SPECIMEN Ordering Facility: [facility] Address: [address] [place] [address] Performed By: #### 5 7021-8 #### [facility] CLIA [id number] [address] [place] [address] [place] Lymphocytes/100 WBC (Bld) 11.8 % Normal [facility] Comment on above: Order Comment: Speci men Type: BLOOD SPECIMEN Ordering Facility: [facility] Address: [address] [place] [address] Performed By: #### 5 7021-8 #### [facility] CLIA [id number] [address] [place] [address] [place] MCH (RBC) [Entitic mass] 30.5 pg Normal 26.0-34.0 [facility] Comment on above: Order Comment: Speci men Type: BLOOD SPECIMEN Ordering Facility: [facility] Address: [address] [place] [address] Performed By: #### 5 7021-8 #### [facility] CLIA [id number] [address] [place] [address] [place] MCHC (RBC) [Mass/Vol] 34.8 g/dL Normal 30.5-36.0 [facility] Comment on above: Order Comment: Speci men Type: BLOOD SPECIMEN Ordering Facility: [facility] Address: [address] [place] [address] Performed By: #### 5 7021-8 #### [facility] CLIA [id number] [address] [place] [address] [place] MCV (RBC) [Entitic vol] 87.8 fL Normal 80.0-100.0 [facility] Comment on above: Order Comment: Speci men Type: BLOOD SPECIMEN Ordering Facility: [facility] Address: [address] [place] [address] Performed By: #### 5 7021-8 #### [facility] CLIA [id number] [address] [place] [address] [place] Monocytes (Bld) [#/Vol] 0.97 10*3/uL High <0.87 [facility] Comment on above: Order Comment: Speci men Type: BLOOD SPECIMEN Ordering Facility: [facility] Address: [address] [place] [address] Performed By: #### 5 7021-8 #### [facility] CLIA [id number] [address] [place] [address] [place] Monocytes/100 WBC (Bld) 6.7 % Normal [facility] Comment on above: Order Comment: Speci men Type: BLOOD SPECIMEN Ordering Facility: [facility] Address: [address] [place] [address] Performed By: #### 5 7021-8 #### [facility] CLIA [id number] [address] [place] [address] [place] Neutrophils (Bld) [#/Vol] 11.38 10*3/uL High 1.45-7.50 [facility] Comment on above: Order Comment: Speci men Type: BLOOD SPECIMEN Ordering Facility: [facility] Address: [address] [place] [address] Performed By: #### 5 7021-8 #### [facility] CLIA [id number] [address] [place] [address] [place] Neutrophils/100 WBC (Bld) 78.1 % Normal [facility] Comment on above: Order Comment: Speci men Type: BLOOD SPECIMEN Ordering Facility: [facility] Address: [address] [place] [address] Performed By: #### 5 7021-8 #### [facility] CLIA [id number] [address] [place] [address] [place] Nucleated RBC (Bld) [#/Vol] 10*3/uL Normal <0.01 [facility] Comment on above: Order Comment: Speci men Type: BLOOD SPECIMEN Ordering Facility: [facility] Address: [address] [place] [address] Performed By: #### 5 7021-8 #### [facility] CLIA [id number] [address] [place] [address] [place] Nucleated RBC/100 WBC (Bld) [Ratio] 0.0 /100 WBC Normal [facility] Comment on above: Order Comment: Speci men Type: BLOOD SPECIMEN Ordering Facility: [facility] Address: [address] [place] [address] Performed By: #### 5 7021-8 #### [facility] CLIA [id number] [address] [place] [address] [place] Platelet mean volume (Bld) [Entitic vol] 10.0 fL Normal 9.0-12.7 [facility] Comment on above: Order Comment: Speci men Type: BLOOD SPECIMEN Ordering Facility: [facility] Address: [address] [place] [address] Performed By: #### 5 7021-8 #### [facility] CLIA [id number] [address] [place] [address] [place] Platelets (Bld) [#/Vol] 322 10*3/uL Normal 150-400 [facility] Comment on above: Order Comment: Speci men Type: BLOOD SPECIMEN Ordering Facility: [facility] Address: [address] [place] [address] Performed By: #### 5 7021-8 #### [facility] CLIA [id number] [address] [place] [address] [place] RBC (Bld) [#/Vol] 4.00 10*6/uL Normal 3.90-5.20 [facility] Comment on above: Order Comment: Speci men Type: BLOOD SPECIMEN Ordering Facility: [facility] Address: [address] [place] [address] Performed By: #### 5 7021-8 #### [facility] CLIA [id number] [address] [place] [address] [place] WBC (Bld) [#/Vol] 14.54 10*3/uL High 3.70-11.00 [facility] Comment on above: Order Comment: Speci men Type: BLOOD SPECIMEN Ordering Facility: [facility] Address: [address] [place] [address] Performed By: #### 5 7021-8 #### [facility] CLIA [id number] [address] [place] [address] [place] GESTATIONAL GLUCOSE SCREEN, 1-HOUR, 50 GRAM, NON-FASTINGon 03-13-2025 Glucose [Mass/Vol] 132 mg/dL Normal 74-134 [facility] Comment on above: Order Comment: Speci men Type: BLOOD SPECIMEN Ordering Facility: [facility] Address: [address] [place], [place] [id number] Result Comment: [facility] Congress of Obstetricians and Gynecologists (Duyen/Erika) guidelines state a gestational diabetes mellitus positive screen is made, in women not previously diagnosed with overt diabetes, when the 1 hr plasma glucose level is equal to or above 140 mg/dL. The [facility] Manager and [facility] [place] recommends a 135 mg/dL cutoff. Performed By: #### G LTGST #### [facility] CLIA [id number] [address] [place] [address] [place] Reagin and Treponema pallidu m IgG and IgM [Interp]on 03-13-2025 T. pallidum IgG+IgM IA Ql (S) Non-Reactive Normal Nonreactive [facility] Comment on above: Order Comment: Speci men Type: BLOOD SPECIMEN Ordering Facility: [facility] Address: [address] [place] [address] Performed By: #### G LTGST #### [facility] CLIA [id number] [address] [place] [address] [place] Reagin+T pallidum IgG+IgM Se rPl-Impon 03-13-2025 Reagin and Treponema pallidum IgG and IgM [Interp] Cannot exclude recent Treponemal infection if specimen collected within 7-10 days after appearance of suspect lesions or 2-3 weeks after an exposure. Clinical correlation is required. Normal [facility] Comment on above: Order Comment: Speci men Type: BLOOD SPECIMEN Ordering Facility: [facility] Address: [address] [place] [address] Performed By: #### G LTGST #### [facility] CLIA [id number] [address] [place] [address] [place] T4 Free SerPl-mCncon 025 Free T4 [Mass/Vol] 0.5 ng/dL Low 0.9-1.7 [facility] Comment on above: Order Comment: Speci men Type: BLOOD SPECIMEN Ordering Facility: [facility] Address: [address] [place] [address] Performed By: #### G LTGST #### [id number] [address] [place] [address] [place] THYROGLOBULIN ANTIBODYon Thyroglobulin Ab Qn [IU]/mL Normal <4.0 [facility] Comment on above: Order Comment: Speci men Type: BLOOD SPECIMEN Ordering Facility: [facility] Address: [address] [place] [address] Result Comment: The Thyroglobulin Antibody test was performed using the [employer] DXI paramagnetic particle chemiluminescent immunoassay method. Results obtained with different assay methods or kits cannot be used interchangeably. Performed By: #### G LTGST #### [facility] CLIA [id number] [address] [place] [address] [place] TSH SerPl-aCncon 03-13-2025 TSH Qn 0.259 m[IU]/L Low 0.270-4.200 [facility] Comment on above: Order Comment: Carol pérez Type: BLOOD SPECIMEN Ordering Facility: [facility] Address: [address] [place] [address] Result Comment: If t he patient is , TSH reference range varies by gestational period: First Trimester (weeks 9-12): 0.180-2.990 mIU/L Second Trimester: 0.110-3.980 mIU/L Third Trimester: 0.480-4.710 mIU/L Maxwell Ralph et al. A Practical Approach for the Verifications and Determination of Site- and Trimester-Specific Reference Intervals for Thyroid Function tests in . Thyroid, 2019:29:3:412-420. Manjit Grady, et al. 2017 Guidelines of the [place] [employer] for the Diagnosis and Management of Thyroid Disease during and the . Thyroid, 2017:27:3:315-389. Performed By: #### G LTGST #### [facility] [id number] [address] [place] [address] [place] Examination level ultrasound on 01-09-2025 Indication Detailed anatomic survey, Maternal obesity, BMI >30, History of delivery Impression remote read The patient is referred for a detailed anatomic survey. - Single, live, intrauterine . - biometry is consistent with the established gestational age. - No malformations were visualized on a complete detailed anatomic survey. - The amniotic fluid volume is normal amount. - The placenta is anterior, fundal. - The Transvaginal cervical length measures 43.3 mm with no evidence of funneling or other dynamic changes. - Not all structural malformations can be detected by ultrasound examination. Recommendations Additional follow-up as clinically indicated. Maternal Assessment Height 168 cm Height (ft) 5 ft Height (in) 6 in Physical Exam Initial weight (lb) 215 lb Initial BMI 34.70 kg/m Method Transabdominal and transvaginal ultrasound examination. View: Adequate visualization [place] . Number of fetuses: 1 Dating LMP on: 09/01/2024 GA by LMP 18 w + 4 d NITIN by LMP: 06/08/2025 GA by prior assessment 18 w + 4 d NITIN by prior assessment: 06/08/2025 Ultrasound examination on: 01/09/2025 GA by U/S based upon: AC, BPD, Femur, HC GA by U/S 19 w + 3 d NITIN by U/S: 06/02/2025 Assigned: based on stated NITIN, selected on 11/28/2024 Assigned GA 18 w + 4 d Assigned NITIN: 06/08/2025 General Evaluation Cardiac activity present. FHR 151 bpm. movements: present. Presentation: oblique, breech Placenta: Placental site: anterior, fundal Umbilical cord: Cord vessels: 3 vessel cord. Insertion site: normal insertion Amniotic fluid: Amount of AF: normal amount. MVP 5.3 cm Growth Overview Exam date GA BPD (mm) HC (mm) AC (mm) FL (mm) HL (mm) EFW (g) 01/09/2025 18w 4d 43.4 74% 166.3 72% 144 82% 30.6 90% 28.7 79% 298 92% Biometry Standard BPD 43.4 mm 19w 1d 74% Hadlock OFD 60.5 mm 19w 4d 98% Nicolaides HC 166.3 mm 19w 2d 72% Benito Cerebellum tr 19.9 mm 19w 1d 78% Hill Nuchal fold 4.0 mm AC 144.0 mm 19w 5d 82% Hadlock Femur 30.6 mm 19w 4d 90% Benito Humerus 28.7 mm 19w 2d 79% Benito EFW 298 g 19w 3d 92% Hadlock EFW (lb) 0 lb EFW (oz) 11 oz EFW by: Hadlock (HC-AC-FL) Extended Intensive Care Unit Registered Nurse 6.6 mm CM 4.5 mm 45% Nicolaides Nasal bone 5.9 mm Extremities / Bony Struc FL / HC 0.18 58% Hadlock Other Structures FHR 151 bpm Anatomy Cranium: normal Lateral ventricles: normal Choroid plexus: normal Midline falx: normal Cavum septi pellucidi: normal Cerebellum: normal Cisterna magna: normal Head / Neck Vermis: normal Neck: normal Nuchal fold: normal Lips: normal Profile: normal Nose: normal Face Maxilla: normal Mandible: normal Orbits: normal Lens: normal 4-chamber view: normal RVOT view: normal LVOT view: normal 3-vessel view: normal 6-yfivvt-ymxwcwy view: normal Heart / Thorax Situs: situs solitus (normal) Aortic arch view: normal SVC: normal IVC: normal Cardiac axis: normal Rt lung: normal Lt lung: normal Diaphragm: normal Cord insertion: normal Stomach: normal Kidneys: normal Bladder: normal Genitals: normal Abdomen Abdom. wall: normal Cervical spine: normal Thoracic spine: normal Lumbar spine: normal Sacral spine: normal Arms: normal Legs: normal Rt upper arm: normal Rt forearm: normal Rt hand: normal Rt fingers: normal Lt upper arm: normal Lt forearm: normal Lt hand: normal Lt fingers: normal Rt upper leg: normal Rt lower leg: normal Rt foot: normal Lt upper leg: normal Lt lower leg: normal Lt foot: normal sex: male Wants to know sex: yes Maternal Structures Uterus / Cervix Uterus: Visualized Cervix: Visualized Approach: Transvaginal Cervical length 43.3 mm Ovaries / Tubes / Adnexa Rt ovary: Normal Lt ovary: Suboptimal Performed By: Melinda Kennedy RDMS Read By: Terri Patterson M.D. MATERNAL MEDICINE [facility] Radiology Study observation (narrative) [facility] Examination level ultrasound on 11-28-2024 Indication First trimester anatomic survey Maternal obesity, BMI >30 Impression The patient is referred for a first trimester anatomy scan including nuchal translucency measurement as clinically indicated. - Single, live, intrauterine . - [place] rump length measurement is consistent with the established gestational age. - A qualitative screen of the nuchal translucency and other anatomic structures was unremarkable on first trimester anatomic assessment. - Not all structural malformations can be detected by ultrasound examination. Maternal Structures: Right Ovary: Size 33 mm x 27 mm x 21 mm Left Ovary: Size 22 mm x 17 mm x 14 mm Recommendations - A standard anatomic survey at 16 weeks can be offered and a detailed exam at 20 weeks is recommended for increased risk. Maternal Assessment Height 168 cm Height (ft) 5 ft Height (in) 6 in Physical Exam Initial weight (lb) 215 lb Initial BMI 34.70 kg/m Maternal assessment other: 4 Para 1 REMOTE READ Method Transabdominal ultrasound examination [place] . Number of fetuses: 1 Dating LMP on: 09/01/2024 GA by LMP 12 w + 4 d NITIN by LMP: 06/08/2025 GA by prior assessment 12 w + 4 d NITIN by prior assessment: 06/08/2025 Ultrasound examination on: 11/28/2024 GA by U/S based upon: CRL GA by U/S 13 w + 3 d NITIN by U/S: 06/02/2025 Assigned: based on stated NITIN, selected on 11/28/2024 Assigned GA 12 w + 4 d Assigned NITIN: 06/08/2025 General Evaluation Cardiac activity present Placenta: anterior Cord vessels: 3 vessel cord Amniotic fluid: normal amount Biometry Standard FHR 159 bpm CRL 73.2 mm 13w 3d 94% Hadlock First Trimester Anatomy Calvarium: normal Falx cerebri: normal Choroid plexus: normal Profile: normal Nasal bone: normal Retronasal triangle: normal Maxilla: normal Mandible: normal Nuchal translucency: Unremarkable Situs: normal Cardiac position: normal Cardiac axis: normal 4-chamber view: visualized 4-chamber view with color: visualized 0-akjwga-zogisoo view: visualized Abdominal cord insertion: normal Stomach: normal Kidneys: normal Bladder: normal Color doppler of perivesical umbilical arteries: normal Vertebral alignment: normal Arms: normal Hands: normal Legs: normal Feet: normal Maternal Structures Uterus / Cervix Uterus: Visualized Uterus length 149 mm Uterus width 113 mm Uterus height 72 mm Uterus Vol 633.0 cm Ovaries / Tubes / Adnexa Rt ovary: Visualized Rt ovary D1 33 mm Rt ovary D2 27 mm Rt ovary D3 21 mm Rt ovary Vol 10.0 cm Lt ovary: Visualized Lt ovary D1 22 mm Lt ovary D2 17 mm Lt ovary D3 14 mm Lt ovary Vol 2.7 cm Performed By: Layne Frias, ASIF, RVT Read By: Terri Patterson M.D. MATERNAL MEDICINE [facility] Radiology Study observation (narrative) [facility] [id number] PLUSon 11-28-2024 Cell-free DNA./Cell-free DNA.total Dosage of chromosome-specific cfDNA (cfDNA) [Molar fraction] 16% Normal [facility] Comment on above: Order Comment: Speccordelia pérez Type: BLOOD SPECIMEN Ordering Facility: [facility] Address: [address] [place] [address] Performed By: #### M AT21 #### [facility] CLIA [id number] [address] [place] [address]2020 Chr 13+18+21+X+Y aneuploidy Dosage of chromosome-specific cfDNA Ql (cfDNA) Negative Normal [facility] Comment on above: Order Comment: Carol pérez Type: BLOOD SPECIMEN Ordering Facility: [facility] Address: [address] [place] [address] Performed By: #### M AT21 #### [facility] CLIA [id number] [address] [place] [address] Chr 21 trisomy Dosage of chromosome-specific cfDNA Ql (cfDNA) Negative Normal [facility] Comment on above: Order Comment: Speci beto Type: BLOOD SPECIMEN Ordering Facility: [facility] Address: [address] [place] [address] Performed By: #### M AT21 #### [facility] CLIA [id number] [address] [place] [address]709 Chr X and Y aneuploidy risk Sequencing Ql (cfDNA) [Interp] Not detected Normal [facility] Comment on above: Order Comment: Carol pérez Type: BLOOD SPECIMEN Ordering Facility: [facility] Address: [address] [place] [address] Result Comment: Not Detected Not Detected Performed By: #### M AT21 #### [facility] CLIA [id number] [address] [place] [address] Citation Andre (Reference lab test) Comment Normal [facility] Comment on above: Order Comment: Carol éprez Type: BLOOD SPECIMEN Ordering Facility: [facility] Address: [address] [place] [address] Result Comment: 1. P mg NIXON, et al. Beatris Med. 2012;14(3):296-305. 2. Vinny AUGUSTE et al. Prenat Diag. 2013;33(6):591-597. 3. Campo C, et al. Clin Chem. 2015 Apr;61(4):608-616. 4. Ronald NIXON et al. Beatris Med. 2011;13(11):913-920. 5. ACOG/SMFM Practice Bulletin No. 226, Mar 2020. Performed By: #### M AT21 #### [facility] CLIA [id number] [address] [place] [address] Gestational age Estimated from conception date [place] Normal [facility] Comment on above: Order Comment: Carol pérez Type: BLOOD SPECIMEN Ordering Facility: [facility] Address: [address] [place] [address] Performed By: #### M AT21 #### [facility] CLIA [id number] [address] [place] [id number] GESTATIONALAGE AGE > OR = 9W Yes Normal [facility] Comment on above: Order Comment: Carol pérez Type: BLOOD SPECIMEN Ordering Facility: [facility] Address: [address] [place] [address] Performed By: #### M AT21 #### [facility] CLIA [id number] [address] [place] [id number] Laboratory comment Andre (Report) Comment Normal [facility] Comment on above: Order Comment: Carol pérez Type: BLOOD SPECIMEN Ordering Facility: [facility] Address: [address] [place] [address] Result Comment: The MaterniT(R) 21 PLUS laboratory-developed test (LDT) analyzes circulating cell-free DNA from a maternal blood sample. This test is used for screening purposes and not diagnostic. Clinical correlation is recommended. Validation data on twin pregnancies is limited and the ability of this test to detect aneuploidy in higher multiple gestations has not yet been validated. Performed By: #### M AT21 #### [facility] CLIA [id number] [address] [place] [address] director career name Nom (Provider) Comment Normal [facility] Comment on above: Order Comment: Speci men Type: BLOOD SPECIMEN Ordering Facility: [facility] Address: [address] [place] [address] Result Comment: This specimen showed an expected representation of chromosome 21, 18 and 13 material. Clinical correlation is suggested. Comment Alvin Alvarado MD, PhD, Director, [facility] Performed By: #### M AT21 #### [facility] CLIA [id number] [address] [place] [address] LIMITATIONS OF THE TEST Comment Normal [facility] Comment on above: Order Comment: Speci men Type: BLOOD SPECIMEN Ordering Facility: [facility] Address: [address] [place] [address] Result Comment: Benita grady the results of these tests are highly reliable, discordant results, including inaccurate sex prediction, may occur due to placental, maternal, or mosaicism or neoplasm; vanishing twin; prior maternal organ transplant; or other causes. These tests are screening tests and not diagnostic; they do not replace the accuracy and precision of diagnosis with CVS or amniocentesis. A patient with a positive test result should be referred for genetic counseling and offered invasive diagnosis for confirmation of test results.[5] The results of this testing, including the benefits and limitations, should be discussed with a qualified healthcare provider. management decisions, including termination of the , should not be based on the results of these tests alone. The healthcare provider is responsible for the use of this information in the management of their patient. Sex chromosomal aneuploidies are not reportable for known multiple gestations. A negative result does not ensure an unaffected nor does it exclude the possibility of other chromosomal abnormalities or defects which are not a part of these tests. An uninformative result may be reported, the causes of which may include, but are not limited to, insufficient sequencing coverage, noise or artifacts in the region, amplification or sequencing bias, or insufficient fraction. These tests are not intended to identify pregnancies at risk for neural tube defects or ventral wall defects. Testing for whole chromosome abnormalities (including sex chromosomes) and for subchromosomal abnormalities could lead to the potential discovery of both and maternal genomic abnormalities that could have major, minor, or no, clinical significance. Evaluating the significance of a positive or a non-reportable result may involve both invasive testing and additional studies on the mother. Such investigations may lead to a diagnosis of maternal chromosomal or subchromosomal abnormalities, which on occasion may be associated with benign or malignant maternal neoplasms. These tests may not accurately identify triploidy, balanced rearrangements, or the precise location of subchromosomal duplications or deletions; these may be detected by diagnosis with CVS or amniocentesis. The ability to report results may be impacted by maternal BMI, maternal weight, maternal systemic lupus erythematosus (SLE) and/or by certain pharmaceutical agents such as low molecular weight heparin (for example: Lovenox(R), Xaparin(R), Clexane(R) and Fragmin(R)). Performed By: #### M AT21 #### [facility] Certain CommunicationsIA [id number] [address] [place] [address] Monosomy X risk Dosage of chromosome-specific cfDNA Ql (Plasma cell-free+WBC DNA) [Interp] Not detected Normal [facility] Comment on above: Order Comment: Carol pérez Type: BLOOD SPECIMEN Ordering Facility: [facility] Address: [address] [place] [address] Performed By: #### M AT21 #### [facility] CLIA [id number] [address] [place] [address] NEGATIVE PREDICTIVE VALUE Note Normal [facility] Comment on above: Order Comment: Carol pérez Type: BLOOD SPECIMEN Ordering Facility: [facility] Address: [address] [place] [address] Result Comment: The Negative Predictive Value (NPV) for trisomy 21, 18, and 13 is greater than 99%. The NPV for SCA and ESS cannot be calculated as SCA and ESS are only reported when an abnormality is detected. Performed By: #### M AT21 #### [facility] CLIA [id number] [address] [place] [address] PERFORMANCE CHARACTERISTICS Note Normal [facility] Comment on above: Order Comment: Carol pérez Type: BLOOD SPECIMEN Ordering Facility: [facility] Address: [address] [place] [address] Result Comment: ! Sex ! Accuracy: 99.4% ! ! ! ! Region (associated syndrome) ! Est. Sens# ! Est. Spec ! ! ! ! Trisomy 21 (Down Syndrome) ! 99.1% ! 99.9% ! ! ! ! Trisomy 18 (Patten Syndrome) ! >99.9% ! 99.6% ! ! ! ! Trisomy 13 (Patau Syndrome) ! 91.7% ! 99.7% ! ! ! ! Sex Chromosome Aneuploidies## ! 96.2% ! 99.7% ! ! ! * As reported in ISCA database nstd37 [https://www.ncbi.nlm.nih.gov/dbvar/studies/nstd37/ ] # Estimated Sensitivity. Sensitivity estimated across the observed size distribution of each syndrome [per ISCA database nstd37] and across the range of fractions observed in routine clinical NIPT. Actual sensitivity can also be influenced by other factors such as the size of the event, total sequence counts, amplification bias, or sequence bias. ## [place] gestation only. Performed By: #### M AT21 #### [facility] CLIA [id number] [address] [place] [address] POSITIVE PREDICTIVE VALUE N/A Normal [facility] Comment on above: Order Comment: Speci men Type: BLOOD SPECIMEN Ordering Facility: [facility] Address: [address] [place] [address] Performed By: #### M AT21 #### [facility] CLIA [id number] [address] [place] [address] Reference Lab Test Method Comment Normal [facility] Comment on above: Order Comment: Speci beto Type: BLOOD SPECIMEN Ordering Facility: [facility] Address: [address] [place] [address] Result Comment: See Notes Circulating cell-free DNA was purified from the plasma component of maternal blood. The extracted DNA was then converted into a genomic DNA library for aneuploidy analysis of chromosomes 21, 18, and 13 via next generation sequencing.[1] Optional findings based on the test order include sex chromosome aneuploidy (SCA)[2], and enhanced sequencing series (ESS)[3], which will only be reported on as an additional finding when an abnormality is detected. SCA testing includes information on X and Y representation, while ESS testing includes deletions in selected regions (22q, 15q, 11q, 8q, 5p, 4p, 1p) and trisomy of chromosomes 16 and 22. Performed By: #### M AT21 #### [facility] CLIA [id number] [address] [place] [address] Service comment (Unsp spec) [Interp] Comment Normal [facility] Comment on above: Order Comment: Álvaroi beto Type: BLOOD SPECIMEN Ordering Facility: [facility] Address: [address] [place] [address] Result Comment: See Notes [employer] is a subsidiary of [employer], using the brand [employer]. This test was developed and its performance characteristics determined by [employer]. It has not been cleared or approved by the Food and Drug Administration. This laboratory is certified under the Clinical Laboratory Improvement Amendments (CLIA) as qualified to perform high complexity clinical laboratory testing and accredited by the [employer] [place] [employer] (CAP). If there is future clinical need for adding MaterniT GENOME testing, this specimen will be available until term. [facility] samples will not be retained beyond 60 days. [facility] patients will have to send a new sample for re-sequencing ([facility] Test Code: [id number]). Performed By: #### M AT21 #### [facility] CLIA [id number] [address] [place] [address] Sex Dosage of chromosome-specific cfDNA Nom (cfDNA) Comment Normal [facility] Comment on above: Order Comment: Speci men Type: BLOOD SPECIMEN Ordering Facility: [facility] Address: [address] [place] [address] Result Comment: Cons istent with Male Performed By: #### M AT21 #### [facility] CLIA [id number] [address] [place] [address] Test performance information Anrde (Unsp spec) Comment Normal [facility] Comment on above: Order Comment: Speci men Type: BLOOD SPECIMEN Ordering Facility: [facility] Address: [address] [place] [address] Result Comment: The performance characteristics of the MaterniT(R) 21 PLUS laboratory-developed test (LDT) have been determined in a clinical validation study with women at increased risk for chromosomal aneuploidy.[1-4] Performed By: #### M AT21 #### [facility] CLIA [id number] [address] [place] [address] Trisomy 13 risk Dosage of chromosome-specific cfDNA Ql (cfDNA) [Interp] Negative Normal [facility] Comment on above: Order Comment: Speci men Type: BLOOD SPECIMEN Ordering Facility: [facility] Address: [address] [place] [address] Performed By: #### M AT21 #### [facility] CLIA [id number] [address] [place] [address] Trisomy 18 risk Dosage of chromosome-specific cfDNA Ql (Plasma cell-free+WBC DNA) [Interp] Negative Normal [facility] Comment on above: Order Comment: Speci men Type: BLOOD SPECIMEN Ordering Facility: [facility] Address: [address] [place] [address] Performed By: #### M AT21 #### [facility] CLIA [id number] [address] [place] [address] No Panel Informationon 11-28 Interpretation and review of laboratory results Normal [facility] T3, FREEon 11-28-2024 Free T3 [Mass/Vol] 3.8 pg/mL 2.3 - 4.1 pg/mL [facility] T3Free SerPl-ncon 11-29-19 25 Free T3 [Mass/Vol] 3.8 pg/mL Normal 2.3-4.1 [facility] Comment on above: Order Comment: Speci men Type: BLOOD SPECIMEN Ordering Facility: [facility] Address: [address] [place] [address] Performed By: #### G LTGST #### [facility] CLIA [id number] [address] [place] [address] [place] T4 FREE/FREE THYROXINEon Free T4 [Mass/Vol] 0.9 ng/dL 0.9 - 1.7 ng/dL [facility] T4 Free SerPl-mCncon 025 Free T4 [Mass/Vol] 0.9 ng/dL Normal 0.9-1.7 [facility] Comment on above: Order Comment: Speci men Type: BLOOD SPECIMEN Ordering Facility: [facility] Address: [address] [place] [address] Performed By: #### G LTGST #### [facility] CLIA [id number] [address] [place], [place] [id number] [place] THYROID PEROXIDASE ANTIBODYo n 11-28-2024 TPO Ab Qn [IU]/mL Normal <5.6 [facility] Comment on above: Order Comment: Speccordelia pérez Type: FLUID SPECIMEN Ordering Facility: [facility] Address: [address] [place] [address] Result Comment: Thyr oid Peroxidase Antibody test is used as an aid in diagnosis of autoimmune thyroid disease. Clinical correlation is required. Performed By: #### H PVHRT #### [facility] CLIA [id number] [address] [place] [address] [place] THYROID STIMULATING HORMONEo n 11-28-2024 TSH Qn 0.078 m[IU]/L Low [facility] Comment on above: If the patient is pr egnant, TSH reference range varies by gestational period: First Trimester (weeks 9-12): 0.180-2.990 mIU/L Second Trimester: 0.110-3.980 mIU/L Third Trimester: 0.480-4.710 mIU/L Maxwell Ralph et al. A Practical Approach for the Verifications and Determination of Site- and Trimester-Specific Reference Intervals for Thyroid Function tests in . Thyroid, 2019:29:3:412-420. Manjit Grady, et al. 2017 Guidelines of the [place] Thy[employer] Association for the Diagnosis and Management of Thyroid Disease during and the . Thyroid, 2017:27:3:315-389. THYROID STIMULATING IMMUNOGL OBULIN BLOODon 11-28-2024 Thyroid stimulating immunoglobulins actual/normal (S) [Relative mass conc] % Normal <0.55 [facility] Comment on above: Order Comment: Carol pérez Type: BLOOD SPECIMEN Ordering Facility: [facility] Address: [address] [place] [address] Result Comment: Thyr oid Stimulating Immunoglobulin test is used as an aid in diagnosis of autoimmune hyperthyroidism especially in patients with Grave's orbitopathy and dermopathy. Low positive TSH receptor stimulating antibody levels may occasionally be found in patients with autoimmune hypothyroidism. Clinical correlation is required. Performed By: #### T SIGIM #### [facility] CLIA [id number] [address] [place] [address] [place] TSI QUALITATIVE Negative Normal Negative [facility] Comment on above: Order Comment: Speci men Type: BLOOD SPECIMEN Ordering Facility: [facility] Address: [address] [place] [address] Performed By: #### T SIGIM #### [facility] CLIA [id number] [address] [place] [address] [place] TSH Qnon 11-28-2024 Interpretation and review of laboratory results Abnormal [facility] TSH SerPl-aCncon 11-28-2024 TSH Qn 0.078 m[IU]/L Low 0.270-4.200 [facility] Comment on above: Order Comment: Speci beto Type: BLOOD SPECIMEN Ordering Facility: [facility] Address: [address] [place] [address] Result Comment: If t he patient is , TSH reference range varies by gestational period: First Trimester (weeks 9-12): 0.180-2.990 mIU/L Second Trimester: 0.110-3.980 mIU/L Third Trimester: 0.480-4.710 mIU/L Maxwell Ralph et al. A Practical Approach for the Verifications and Determination of Site- and Trimester-Specific Reference Intervals for Thyroid Function tests in . Thyroid, 2019:29:3:412-420. Manjit Grady, et al. 2017 Guidelines of the [place] Thyroid Association for the Diagnosis and Management of Thyroid Disease during and the . Thyroid, 2017:27:3:315-389. Performed By: #### G LTGST #### [facility] CLIA [id number] [address] [place] [address] [place] Free T4 [Mass/Vol]on 025 Interpretation and review of laboratory results Normal [facility] T4 FREE/FREE THYROXINEon Free T4 [Mass/Vol] 1.1 ng/dL 0.9 - 1.7 ng/dL [facility] CBC W Auto Differential pane l (Bld)on 11-07-2024 Basophils (Bld) [#/Vol] 0.04 10*3/uL Normal <0.11 [facility] Comment on above: Order Comment: Speci men Type: BLOOD SPECIMEN Ordering Facility: [facility] Address: [facility] [place] [address] Performed By: #### G LTGST #### [facility] CLIA [id number] [address] [place] [address] [place] Basophils/100 WBC (Bld) 0.3 % Normal [facility] Comment on above: Order Comment: Speci men Type: BLOOD SPECIMEN Ordering Facility: [facility] Address: [address] [place] [address] Performed By: #### G LTGST #### [facility] CLIA [id number] [address] [place] [address] [place] Differential cell count method Nom (Bld) Auto Normal [facility] Comment on above: Order Comment: Speci men Type: BLOOD SPECIMEN Ordering Facility: [facility] Address: [address] [place] [address] Performed By: #### G LTGST #### [facility] [id number] [address] [place] [address] [place] Eosinophils (Bld) [#/Vol] 0.35 10*3/uL Normal <0.46 [facility] Comment on above: Order Comment: Speci men Type: BLOOD SPECIMEN Ordering Facility: [facility] Address: [address] [place] [address] Performed By: #### G LTGST #### [facility] CLIA [id number] [address] [place] [address] [place] Eosinophils/100 WBC (Bld) 2.7 % Normal [facility] Comment on above: Order Comment: Speci men Type: BLOOD SPECIMEN Ordering Facility: [facility] Address: [address] [place] [address] Performed By: #### G LTGST #### [facility] CLIA [id number] [address] [place] [address] [place] Erythrocyte distribution width (RBC) [Ratio] 13.3 % Normal 11.5-15.0 [facility] Comment on above: Order Comment: Speci men Type: BLOOD SPECIMEN Ordering Facility: [facility] Address: [address] [place] [address] Performed By: #### G LTGST #### [facility] CLIA [id number] [address] [place] [address] [place] Hematocrit (Bld) [Volume fraction] 39.7 % Normal 36.0-46.0 [facility] Comment on above: Order Comment: Speci men Type: BLOOD SPECIMEN Ordering Facility: [facility] Address: [address] [place] [address] Performed By: #### G LTGST #### [facility] [id number] [address] [place] [address] [place] Hemoglobin (Bld) [Mass/Vol] 13.6 g/dL Normal 11.5-15.5 [facility] Comment on above: Order Comment: Speci men Type: BLOOD SPECIMEN Ordering Facility: [facility] Address: [address] [place] [address] Performed By: #### G LTGST #### [facility] [id number] [address] [place] [address] [place] Immature granulocytes (Bld) [#/Vol] 0.04 10*3/uL Normal <0.10 [facility] Comment on above: Order Comment: Speci men Type: BLOOD SPECIMEN Ordering Facility: [facility] Address: [address] [place] [address] Performed By: #### G LTGST #### [facility] [id number] [address] [place] [address] [place] Immature granulocytes/100 WBC (Bld) 0.3 % Normal [facility] Comment on above: Order Comment: Speci men Type: BLOOD SPECIMEN Ordering Facility: [facility] Address: [address] [place] [address] Performed By: #### G LTGST #### [facility] CLIA [id number] [address] [place] [address] [place] Lymphocytes (Bld) [#/Vol] 2.69 10*3/uL Normal 1.00-4.00 [facility] Comment on above: Order Comment: Speci men Type: BLOOD SPECIMEN Ordering Facility: [facility] Address: [address] [place] [address] Performed By: #### G LTGST #### [facility] CLIA [id number] [address] [place] [address] [place] Lymphocytes/100 WBC (Bld) 20.4 % Normal [facility] Comment on above: Order Comment: Speci men Type: BLOOD SPECIMEN Ordering Facility: [facility] Address: [address] [place] [address] Performed By: #### G LTGST #### [facility] CLIA [id number] [address] [place] [address] [place] MCH (RBC) [Entitic mass] 30.2 pg Normal 26.0-34.0 [facility] Comment on above: Order Comment: Speci men Type: BLOOD SPECIMEN Ordering Facility: [facility] Address: [address] [place] [address] Performed By: #### G LTGST #### [facility] CLIA [id number] [address] [place] [address] [place] MCHC (RBC) [Mass/Vol] 34.3 g/dL Normal 30.5-36.0 [facility] Comment on above: Order Comment: Speci men Type: BLOOD SPECIMEN Ordering Facility: [facility] Address: [address] [place] [address] Performed By: #### G LTGST #### [facility] CLIA [id number] [address] [place] [address] [place] MCV (RBC) [Entitic vol] 88.2 fL Normal 80.0-100.0 [facility] Comment on above: Order Comment: Speci men Type: BLOOD SPECIMEN Ordering Facility: [facility] Address: [address] [place] [address] Performed By: #### G LTGST #### [facility] CLIA [id number] [address] [place] [address] [place] Monocytes (Bld) [#/Vol] 1.00 10*3/uL High <0.87 [facility] Comment on above: Order Comment: Speci men Type: BLOOD SPECIMEN Ordering Facility: [facility] Address: [address] [place] [address] Performed By: #### G LTGST #### [facility] CLIA [id number] [address] [place] [address] [place] Monocytes/100 WBC (Bld) 7.6 % Normal [facility] Comment on above: Order Comment: Speci men Type: BLOOD SPECIMEN Ordering Facility: [facility] Address: [address] [place] [address] Performed By: #### G LTGST #### [facility] CLIA [id number] [address] [place] [address] [place] Neutrophils (Bld) [#/Vol] 9.07 10*3/uL High 1.45-7.50 [facility] Comment on above: Order Comment: Speci men Type: BLOOD SPECIMEN Ordering Facility: [facility] Address: [address] [place] [address] Performed By: #### G LTGST #### [facility] CLIA [id number] [address] [place] [address] [place] Neutrophils/100 WBC (Bld) 68.7 % Normal [facility] Comment on above: Order Comment: Speci men Type: BLOOD SPECIMEN Ordering Facility: [facility] Address: [facility] [place] [address] Performed By: #### G LTGST #### [facility] CLIA [id number] [address] [place] [address] [place] Nucleated RBC (Bld) [#/Vol] 10*3/uL Normal <0.01 [facility] Comment on above: Order Comment: Speci men Type: BLOOD SPECIMEN Ordering Facility: [facility] Address: [address] [place] [address] Performed By: #### G LTGST #### [facility] CLIA [id number] [address] [place] [address] [place] Nucleated RBC/100 WBC (Bld) [Ratio] 0.0 /100 WBC Normal [facility] Comment on above: Order Comment: Speci men Type: BLOOD SPECIMEN Ordering Facility: [facility] Address: [address] [place] [address] Performed By: #### G LTGST #### [facility] [id number] [address] [place] [address] [place] Platelet mean volume (Bld) [Entitic vol] 10.2 fL Normal 9.0-12.7 [facility] Comment on above: Order Comment: Speci men Type: BLOOD SPECIMEN Ordering Facility: [facility] Address: [address] [place] [address] Performed By: #### G LTGST #### [facility] [id number] [address] [place] [address] [place] Platelets (Bld) [#/Vol] 326 10*3/uL Normal 150-400 [facility] Comment on above: Order Comment: Speci men Type: BLOOD SPECIMEN Ordering Facility: [facility] Address: [address] [place] [address] Performed By: #### G LTGST #### [facility] CLIA [id number] [address] [place] [address] [place] RBC (Bld) [#/Vol] 4.50 10*6/uL Normal 3.90-5.20 [facility] Comment on above: Order Comment: Speci men Type: BLOOD SPECIMEN Ordering Facility: [facility] Address: [address] [place] [address] Performed By: #### G LTGST #### [facility] CLIA [id number] [address] [place] [address] [place] WBC (Bld) [#/Vol] 13.19 10*3/uL High 3.70-11.00 [facility] Comment on above: Order Comment: Speci men Type: BLOOD SPECIMEN Ordering Facility: [facility] Address: [address] [place] [address] Performed By: #### G LTGST #### [facility] CLIA [id number] [address] [place] [address] [place] Comprehensive metabolic 2000 panelon 11-07-2024 Albumin [Mass/Vol] 4.2 g/dL Normal 3.9-4.9 [facility] Comment on above: Order Comment: Speci men Type: BLOOD SPECIMEN Ordering Facility: [facility] Address: [address] [place] [address] Performed By: #### 2 4323-8 #### [facility] CLIA [id number] [address] [place] [address] [place] ALP [Catalytic activity/Vol] 47 U/L Normal 34-123 [facility] Comment on above: Order Comment: Speci men Type: BLOOD SPECIMEN Ordering Facility: [facility] Address: [address] [place] [address] Performed By: #### 2 4323-8 #### [facility] CLIA [id number] [address] [place] [address] [place] ALT [Catalytic activity/Vol] 13 U/L Normal 7-38 [facility] Comment on above: Order Comment: Speci men Type: BLOOD SPECIMEN Ordering Facility: [facility] Address: [address] [place] [address] Performed By: #### 2 4323-8 #### [facility] CLIA [id number] [address] [place] [address] [place] Anion gap [Moles/Vol] 13 mmol/L Normal 8-15 [facility] Comment on above: Order Comment: Speci men Type: BLOOD SPECIMEN Ordering Facility: [facility] Address: [address] [place] [address] Performed By: #### 2 4323-8 #### [facility] CLIA [id number] [address] [place] [address] [place] AST [Catalytic activity/Vol] 15 U/L Normal 13-35 [facility] Comment on above: Order Comment: Speci men Type: BLOOD SPECIMEN Ordering Facility: [facility] Address: [address] [place] [address] Performed By: #### 2 4323-8 #### [facility] CLIA [id number] [address] [place] [address] [place] Bilirubin [Mass/Vol] 0.2 mg/dL Normal 0.2-1.3 [facility] Comment on above: Order Comment: Speci men Type: BLOOD SPECIMEN Ordering Facility: [facility] Address: [address] [place] [address] Performed By: #### 2 4323-8 #### [facility] CL[facility] [id number] [address] [place] [address] [place] Calcium [Mass/Vol] 10.2 mg/dL Normal 8.5-10.2 [facility] Comment on above: Order Comment: Speci men Type: BLOOD SPECIMEN Ordering Facility: [facility] Address: [address] [place] [address] Performed By: #### 2 4323-8 #### [facility] CLIA [id number] [address] [place] [address] [place] Chloride [Moles/Vol] 103 mmol/L Normal 98-107 [facility] Comment on above: Order Comment: Speci men Type: BLOOD SPECIMEN Ordering Facility: [facility] Address: [address] [place] [address] Performed By: #### 2 4323-8 #### [facility] CLIA [id number] [address] [place] [address] [place] CO2 [Moles/Vol] 19 mmol/L Low 22-30 [facility] Comment on above: Order Comment: Speci men Type: BLOOD SPECIMEN Ordering Facility: [facility] Address: [address] [place] [address] Performed By: #### 2 4323-8 #### [facility] CLIA [id number] [address] [place] [address] [place] Creatinine [Mass/Vol] 0.51 mg/dL Low 0.58-0.96 [facility] Comment on above: Order Comment: Speci men Type: BLOOD SPECIMEN Ordering Facility: [facility] Address: [address] [place] [address] Performed By: #### 2 4323-8 #### [facility] CLIA [id number] [address] [place] [address] [place] Creatinine and Glomerular filtration rate.predicted panel (S/P/Bld) 127 mL/min/1.73m??? Normal >=60 [facility] Comment on above: Order Comment: Speci men Type: BLOOD SPECIMEN Ordering Facility: [facility] Address: [address] [place] [address] Result Comment: Jennifer mated Glomerular Filtration Rate (eGFR) is calculated using the 2020 CKD-EPI creatinine equation. This equation utilizes serum creatinine, sex, and age as parameters. The creatinine assay has traceable calibration to isotope dilution-mass spectrometry. Refer to KDIGO guidelines for clinical interpretation. In patients with unstable renal function, e.g. those with acute kidney injury, the eGFR may not accurately reflect actual GFR. Performed By: #### 2 4323-8 #### [facility] [id number] [address] [place] [address] [place] Glucose [Mass/Vol] 91 mg/dL Normal 74-99 [facility] Comment on above: Order Comment: Carol pérez Type: BLOOD SPECIMEN Ordering Facility: [facility] Address: [address] [place] [address] Result Comment: The [place] Diabetes Association (ADA) provides guidance for cutoff values for fasting glucose and random glucose. The ADA defines fasting as no caloric intake for at least 8 hours. Fasting plasma glucose results between 100 to 125 mg/dL indicate increased risk for diabetes (prediabetes). Fasting plasma glucose results greater than or equal to 126 mg/dL meet the criteria for diagnosis of diabetes. In the absence of unequivocal hyperglycemia, results should be confirmed by repeat testing. In a patient with classic symptoms of hyperglycemia or hyperglycemic crisis, random plasma glucose results greater than or equal to 200 mg/dL meet the criteria for diagnosis of diabetes. Reference: Standards of Medical Care in Diabetes 2016, [place] Diabetes Association. Diabetes Care. 2016.39(Suppl 1). Performed By: #### 2 4323-8 #### [facility] [id number] [address] [place] [address] [place] Potassium [Moles/Vol] 4.0 mmol/L Normal 3.7-5.1 [facility] Comment on above: Order Comment: Carol pérez Type: BLOOD SPECIMEN Ordering Facility: [facility] Address: [address] [place] [address] Performed By: #### 2 4323-8 #### [facility] CLIA [id number] [address] [place] [address] [place] Protein [Mass/Vol] 7.0 g/dL Normal 6.3-8.0 [facility] Comment on above: Order Comment: Speci men Type: BLOOD SPECIMEN Ordering Facility: [facility] Address: [address] [place] [address] Performed By: #### 2 4323-8 #### [facility] CLIA [id number] [address] [place] [address] [place] Sodium [Moles/Vol] 135 mmol/L Low 136-144 [facility] Comment on above: Order Comment: Speci men Type: BLOOD SPECIMEN Ordering Facility: [facility] Address: [address] [place] [address] Performed By: #### 2 4323-8 #### [facility] CLIA [id number] [address] [place] [address] [place] Urea nitrogen [Mass/Vol] 6 mg/dL Low 7-21 [facility] Comment on above: Order Comment: Speci men Type: BLOOD SPECIMEN Ordering Facility: [facility] Address: [address] [place] [address] Performed By: #### 2 4323-8 #### [facility] [id number] [address] [place] [address] [place] HBV surface Ag Ser Qlon 10-20 HBV surface Ag Ql (S) Negative Normal Negative [facility] Comment on above: Order Comment: Speci men Type: FLUID SPECIMEN Ordering Facility: [facility] Address: [address] [place] [address] Performed By: #### H PVHRT #### [facility] CLIA [id number] [address] [place] [address] [place] HCV Ab Ser Qlon 11-07-2024 HCV Ab Ql (S) Negative Normal Negative [facility] Comment on above: Order Comment: Speci men Type: FLUID SPECIMEN Ordering Facility: [facility] Address: [address] [place] [address] Result Comment: The result suggests no evidence of infection with Hepatitis C virus. Should recent infection be suspected, repeat testing may be considered 4-6 weeks after this draw. Performed By: #### H PVHRT #### [facility] CLIA [id number] [address] [place] [address] [place] HIV 1+2 Ab IA Qlon 5 HIV 1 and 2 Ab IA.rapid Nom (S/P/Bld) Normal [facility] Comment on above: Order Comment: Speci men Type: FLUID SPECIMEN Ordering Facility: [facility] Address: [address] [place] [address] Result Comment: Test not indicated. Performed By: #### H PVHRT #### [facility] CLIA [id number] [address] [place] [address] [place] HIV 1+2 Ab+HIV1 p24 Ag IA Ql Non-Reactive Normal Nonreactive [facility] Comment on above: Order Comment: Speci men Type: FLUID SPECIMEN Ordering Facility: [facility] Address: [address] [place] [address] Performed By: #### H PVHRT #### [facility] CLIA [id number] [address] [place] [address] OF [facility] HIV immunoassay testing algorithm interpretation (S/P/Bld) [Interp] Normal [facility] Comment on above: Order Comment: Speci men Type: FLUID SPECIMEN Ordering Facility: [facility] Address: [address] [place] [address] Result Comment: No e vidence of HIV-1 or HIV-2 infection. Should recent infection be suspected, repeat testing may be considered 2-3 weeks after this draw. [place] Rev. Code 3701.243(E): This information has been disclosed to you from confidential records protected from disclosure by state law. You shall make no further disclosure of this information without the specific, written, and informed release of the individual to whom it pertains or as otherwise permitted by state law. A general authorization for the release of medical or other information is not sufficient for the purpose of the release of HIV test results or diagnoses. Performed By: #### H PVHRT #### [facility] CLIA [id number] [address] [place], [place] [address] [place] HbA1c (Bld)on 11-07-2024 Average glucose Estimated from glycated hemoglobin (Bld) [Mass/Vol] 91 mg/dL Normal [facility] Comment on above: Order Comment: Speci men Type: BLOOD SPECIMEN Ordering Facility: [facility] Address: [address] [place] [address] Result Comment: eAG: (Estimated average glucose) is a calculated value from HgbA1c and is food service sales representatives of the average blood glucose level in the last 2-3 month period. Performed By: #### G LTGST #### [facility] [id number] [address] [place] [address] STATES OF [facility] HbA1c (Bld) [Mass fraction] 4.8 % Normal 4.3-5.6 [facility] Comment on above: Order Comment: Speci [facility] Type: BLOOD SPECIMEN Ordering Facility: [facility] Address: [address] [place] [address] Result Comment: [place] Diabetes Association guidelines indicate that patients with HgbA1c in the range 5.7-6.4% are at increased risk for development of diabetes, and intervention by lifestyle modification may be beneficial. HgbA1c greater or equal to 6.5% is considered diagnostic of diabetes. Performed By: #### G LTGST #### [facility] [id number] [address] [place] [address] [place] Prot/Creat Uron 11-07-2024 Protein/Creatinine (U) [Mass ratio] mg/g Normal <0.15 [facility] Comment on above: Order Comment: Speci men Type: FLUID SPECIMEN Ordering Facility: [facility] Address: [address] [place] [address] Result Comment: Adul t Proteinuria Categories: <0.15 mg/mg is considered normal to mildly increased 0.15 - 0.50 mg/mg is considered moderately increased >0.50 mg/mg is considered severely increased KDIGO. (2013). KDIGO 2012 Clinical Practice Guideline for the Evaluation and Management of Chronic Kidney Disease. Official Journal of the International Society of Nephrology, 3(1), 1-150. Performed By: #### H PVHRT #### [facility] CLIA [id number] [address] [place] [address] [place] Protein/Creatinine (U) [Mass ratio]on 11-07-2024 Creatinine (U) [Mass/Vol] 30.3 mg/dL Normal 20.0-300.0 [facility] Comment on above: Order Comment: Speci men Type: FLUID SPECIMEN Ordering Facility: [facility] Address: [address] [place] [address] Performed By: #### H PVHRT #### [facility] CLIA [id number] [address] [place] [address] STATES OF [facility] Protein (U) [Mass/Vol] mg/dL Normal 0-20 [facility] Comment on above: Order Comment: Speci beto Type: FLUID SPECIMEN Ordering Facility: [facility] Address: [address] [place] [address] Performed By: #### H PVHRT #### [facility] CLIA [id number] [address] [place] [address] RUBELLA IGG ANTIBODYon 11-07 RUBELLA IGG AB, QUAL Positive Normal Positive [facility] Comment on above: Order Comment: Álvaroi beto Type: BLOOD SPECIMEN Ordering Facility: [facility] Address: [address] [place] [address] Result Comment: The result suggests recent or past exposure to Rubella virus or history of Rubella vaccination. Positive result may also be seen due to presence of passively-transferred antibodies. Please correlate with patient's history. Performed By: #### G LTGST #### [facility] CLIA [id number] [address] [place] [address] [place] Reagin and Treponema pallidu m IgG and IgM [Interp]on 11-07-2024 T. pallidum IgG+IgM IA Ql (S) Non-Reactive Normal Nonreactive [facility] Comment on above: Order Comment: Speci men Type: FLUID SPECIMEN Ordering Facility: [facility] Address: [address] [place] [address] Performed By: #### H PVHRT #### [facility] CLIA [id number] [address] [place] [address] [place] Reagin+T pallidum IgG+IgM Se rPl-Impon 11-07-2024 Reagin and Treponema pallidum IgG and IgM [Interp] Cannot exclude recent Treponemal infection if specimen collected within 7-10 days after appearance of suspect lesions or 2-3 weeks after an exposure. Clinical correlation is required. Normal [facility] Comment on above: Order Comment: Speci men Type: FLUID SPECIMEN Ordering Facility: [facility] Address: [address] [place] [address] Performed By: #### H PVHRT #### [facility] CLIA [id number] [address] [place] [address] [place] T4 Free SerPl-mCncon 025 Free T4 [Mass/Vol] 1.1 ng/dL Normal 0.9-1.7 [facility] Comment on above: Order Comment: Speci men Type: BLOOD SPECIMEN Ordering Facility: [facility] Address: [address] [place] [address] Performed By: #### 3 024-7, 3016-3 #### [facility] CLIA [id number] [address] [place] [address] [place] TSH SerPl-aCncon 11-07-2024 TSH Qn 0.041 m[IU]/L Low 0.270-4.200 [facility] Comment on above: Order Comment: Speci men Type: BLOOD SPECIMEN Ordering Facility: [facility] Address: [address] [place] [address] Result Comment: If t he patient is , TSH reference range varies by gestational period: First Trimester (weeks 9-12): 0.180-2.990 mIU/L Second Trimester: 0.110-3.980 mIU/L Third Trimester: 0.480-4.710 mIU/L Maxwell Ralph et al. A Practical Approach for the Verifications and Determination of Site- and Trimester-Specific Reference Intervals for Thyroid Function tests in . Thyroid, 2019:29:3:412-420. Manjit Grady, et al. 2017 Guidelines of the [place] Thyroid Association for the Diagnosis and Management of Thyroid Disease during and the . Thyroid, 2017:27:3:315-389. Performed By: #### 3 024-7, 3016-3 #### [facility] CLIA [id number] [address] [place] [address] [place] TYPE + SCREEN PRENATALon ABO B Normal [facility] Comment on above: Order Comment: Speci men Type: BLOOD SPECIMEN Ordering Facility: [facility] Address: [address] [place] [address] Performed By: #### T SPN #### [facility] CLIA [id number] [address] [place] [address] [place] Rh Nom (Bld) Positive Normal [facility] Comment on above: Order Comment: Speci men Type: BLOOD SPECIMEN Ordering Facility: [facility] Address: [address] [place] [address] Performed By: #### T SPN #### [facility] CLIA [id number] [address] [place], [place] [address] [place] [address] [place] TYPE AND SCREEN EXPIRATION 11/10/2024 23:59 Normal [facility] Comment on above: Order Comment: Speci men Type: BLOOD SPECIMEN Ordering Facility: [facility] Address: [address] [place] [address] Performed By: #### T SPN #### [facility] CLIA [id number] [address] [place] [address] [place] Bacteria Ur Culton Bacteria identified Cx Nom (U) ORGANISM ID: 1 <10,000 CFU/ml Normal urogenital phi Normal [facility] Comment on above: Performed By: #### H PVHRT #### [facility] CLIA [id number] [address] [place] [address] [place] C. trachomatis+N. gonorrhoea e DNA MICHAEL+probe Ql (Unsp spec)on 10-26-2024 C. trachomatis rRNA MICHAEL+probe Ql (Unsp spec) Not detected Normal Not detected [facility] Comment on above: Order Comment: Speci men Type: BLOOD SPECIMEN Ordering Facility: [facility] Address: [address] [place] [address] Performed By: #### M [id number] #### [facility] CLIA [id number] [address] [place] [address] N. gonorrhoeae rRNA MICHAEL+probe Ql (Unsp spec) Not detected Normal Not detected [facility] Comment on above: Order Comment: Speci men Type: BLOOD SPECIMEN Ordering Facility: [facility] Address: [address] [place] [address] Performed By: #### M [id number] #### [facility] CLIA [id number] [address] [place] [address] HIGH RISK HUMAN PAPILLOMA JENN (HPV), PCR FOR DETECTION AND GENOTYPINGon 10-26-2024 HPV 16 Ag Ql (Unsp spec) Not detected Normal Not detected [facility] Comment on above: Order Comment: Speci men Type: FLUID SPECIMEN Ordering Facility: [facility] Address: [address] [place] [address] Performed By: #### H PVHRT #### [facility] CLIA [id number] [address] [place] [address] [place] HPV 18 Ag Ql (Unsp spec) Not detected Normal Not detected [facility] Comment on above: Order Comment: Speci men Type: FLUID SPECIMEN Ordering Facility: [facility] Address: [address] [place] [address] Performed By: #### H PVHRT #### [facility] CLIA [id number] [address] [place] [address] [place] HPV 31+33+35+39+45+51+52 +56+58+59+66+68 DNA MICHAEL+probe Ql (Cvx) Not detected Normal Not detected [facility] Comment on above: Order Comment: Speci men Type: FLUID SPECIMEN Ordering Facility: [facility] Address: [address] [place] [address] Result Comment: High Risk HPV Other Type includes HPV types 31, 33, 35, 39, 45, 51, 52, 56, 58, 59, 66 and 68. Performed By: #### H PVHRT #### [facility] CLIA [id number] [address] [place] [address] [place] PAP TESTon 10-26-2024 ADEQUACY Normal [facility] Comment on above: Order Comment: Speci men Type: FLUID SPECIMEN Ordering Facility: [facility] Address: [address] [place] [address] Result Comment: Sati sfactory for interpretation. Transformation zone present Performed By: #### L [id number] #### [facility] CLIA [id number] [address] [place] [address] [place] CASE REPORT Normal [facility] Comment on above: Order Comment: Speci men Type: FLUID SPECIMEN Ordering Facility: [facility] Address: [address] [place] [address] Result Comment: Gyne cologic Cytology Report Case: [id number] Authorizing Provider: Fatemeh Holt APRN.PRODUCE ASSISTANT Collected: 10/26/2024 10:09 AM Ordering Location: OB/Gynecology Received: 10/26/2024 12:23 PM First Screen: Ryan, Gris, CT, ASCP Rescreen: Gersey, Shonda, CT, ASCP Specimen: Pap Test, ThinPrep, Cervix Performed By: #### L [id number] #### [facility] CLIA [id number] [address] [place] [address] [place] [address] [place] CLINICAL HISTORY, CYTOLOGY, LIGHTING SPECIALIST Routine Exam Normal [facility] Comment on above: Order Comment: Speci men Type: FLUID SPECIMEN Ordering Facility: [facility] Address: [address] [place], [place] [address] Performed By: #### L [id number] #### [facility] CLIA [id number] [address] [place] [address] [place] [address] [place] FINAL PERFORMING LAB Normal [facility] Comment on above: Order Comment: Speci men Type: FLUID SPECIMEN Ordering Facility: [facility] Address: [address] [place] [address] Result Comment: Tech nical component, dope firer screening performed at: [facility], [address] [place], [place] [id number] CLIA: [id number] Diagnostic interpretation performed at: [facility], [address] [place] [address] [place] [address] CLIA# [id number] Steam Shovel Operating Engineer: Apollo Espinoza MD Performed By: #### L [id number] #### [facility] CLIA [id number] [address] [place] [address] [place] INTERPRETATION, CYTOLOGY, LIGHTING SPECIALIST Normal [facility] Comment on above: Order Comment: Speci men Type: FLUID SPECIMEN Ordering Facility: [facility] Address: [address] [place], [place] [address] Result Comment: Nega tive for intraepithelial lesion or malignancy. at 1345 EDT Performed By: #### L [id number] #### [facility] CLIA [id number] [address] [place] [address] [place] [address] [place] LMP 09/01/2024 Normal [facility] Comment on above: Order Comment: Speci men Type: FLUID SPECIMEN Ordering Facility: [facility] Address: [address] [place] [address] Performed By: #### L [id number] #### [facility] CLIA [id number] [address] [place] [address] [place] PAP DISCLAIMER COMMENT The Pap Smear is a screening test for cervical cancer. False negative results occur with all screening tests, emphasizing the need for rescreening at recommended intervals, and clinical correlation. Normal [facility] Comment on above: Order Comment: Speci men Type: FLUID SPECIMEN Ordering Facility: [facility] Address: [address] [place] [address] Performed By: #### L [id number] #### [facility] CLIA [id number] [address] [place] [address] [place] PAP CUTTER AND PRESSER COMMENT This specimen has be en analyzed by the ThinPrep Imaging System, an automated imaging and review system, which assists the laboratory in evaluating cells on ThinPrep Pap tests. Following automated imaging, selected carl from every slide are reviewed by a dope firer. Normal [facility] Comment on above: Order Comment: Speci men Type: FLUID SPECIMEN Ordering Facility: [facility] Address: [address] [place] [address] Performed By: #### L [id number] #### [facility] CLIA [id number] [address] [place] [address] [place] POC ANNEALING TORCH OPERATOR ULTRASOUNDon 10-27-19 25 Indication Viability; confirm cardiac activity Impression Single intrauterine gestational sac, CRL is appropriate for clinical dates, corresponding to NITIN 06/08/2025 cardiac activity is visualized Recommendations Follow up for 1st Trimester Anatomy with Nuchal Translucency as clinically indicated if desired. Method Transabdominal ultrasound examination, Transvaginal ultrasound examination. View: Adequate visualization Austin . Number of embryos: 1 Dating LMP on: 09/01/2024 GA by LMP 7 w + 6 d NITIN by LMP: 06/08/2025 Ultrasound examination on: 10/26/2024 GA by U/S based upon: CRL GA by U/S 8 w + 2 d NITIN by U/S: 06/05/2025 Assigned: based on the LMP, selected on 10/26/2024 Assigned GA 7 w + 6 d Assigned NITIN: 06/08/2025 Biometry Standard FHR 172 bpm CRL 18.2 mm 8w 2d >99% Hadlock Assessment Gestational sac: visualized Location: intrauterine Yolk sac: visualized Embryo: visualized CRL 18.2 mm 8w 2d >99% Hadlock Cardiac activity: present FHR 172 bpm General Evaluation Cardiac activity present. FHR 172 bpm Performed By: Fatemeh Holt NP Read By: Fatemeh Holt NP MATERNAL MEDICINE [facility] Radiology Study observation (narrative) [facility] TRICHOMONAS VAGINALIS NAATon 10-26-2024 T. vaginalis DNA MICHAEL+probe Ql (Unsp spec) Not detected Normal Not detected [facility] Comment on above: Order Comment: Speci men Type: BLOOD SPECIMEN Ordering Facility: [facility] Address: [address] [place] [address] Performed By: #### M [id number] #### [facility] CLIA [id number] [address] [place] [address] CBC W/Diff, Automatedon 05-0 Absolute Lymph 4.54 X10 3/uL High 0.83-4.51 [facility] Comment on above: Performed By: #### L 500.4050, L501.4021, L100.0100 #### [facility] [address] [place], [address] Absolute Neut 7.5 X10 3/uL Normal 2.0-7.7 [facility] Comment on above: Performed By: #### L 500.4050, L501.4021, L100.0100 #### [facility] [address] [place], [address] Basophils/100 WBC (Bld) 0.4 % Normal 0-1 [facility] Comment on above: Performed By: #### L 500.4050, L501.4021, L100.0100 #### [facility] [address] [place], [address] Eosinophils/100 WBC (Bld) 4.1 % Normal 0-5 [facility] Comment on above: Performed By: #### L 500.4050, L501.4021, L100.0100 #### [facility] [address] [place], [address] Erythrocyte distribution width (RBC) [Ratio] 13.5 % Normal 11.6-14.6 [facility] Comment on above: Performed By: #### L 500.4050, L501.4021, L100.0100 #### [facility] [address] [place], [address] Hematocrit (Bld) [Volume fraction] 36.0 % Low 37-47 [facility] Comment on above: Performed By: #### L 500.4050, L501.4021, L100.0100 #### [facility] [address] [place], [address] Hemoglobin (Bld) [Mass/Vol] 12.5 g/dL Normal 12.0-15.0 [facility] Comment on above: Performed By: #### L 500.4050, L501.4021, L100.0100 #### [facility] [address] [place], [address] IG% 0.400 Normal 0.0-0.9 [facility] Comment on above: Result Comment: IG% - Immature Granulocytes (promyelocytes, myelocytes and metamyelocytes) > 1% indicates that a LEFT SHIFT is Present. Performed By: #### L 500.4050, L501.4021, L100.0100 #### [facility] [address] [place], [address] Lymphocytes/100 WBC (Bld) 32.1 % Normal 19-41 [facility] Comment on above: Performed By: #### L 500.4050, L501.4021, L100.0100 #### [facility] [address] [place], [address] MCH (RBC) [Entitic mass] 30.8 pg Normal 27.0-32.0 [facility] Comment on above: Performed By: #### L 500.4050, L501.4021, L100.0100 #### [facility] [address] [place], [address] MCHC (RBC) [Mass/Vol] 34.7 g/dL Normal 32-36 [facility] Comment on above: Performed By: #### L 500.4050, L501.4021, L100.0100 #### [facility] [address] [place], [address] MCV (RBC) [Entitic vol] 88.7 fL Normal 81-99 [facility] Comment on above: Performed By: #### L 500.4050, L501.4021, L100.0100 #### [facility] [address] [place], [address] Monocytes/100 WBC (Bld) 10.0 % Normal 0-10 [facility] Comment on above: Performed By: #### L 500.4050, L501.4021, L100.0100 #### [facility] [address] [place], [address] Neutrophils/100 WBC (Bld) 53.0 % Normal 47-70 [facility] Comment on above: Performed By: #### L 500.4050, L501.4021, L100.0100 #### [facility] [address] [place], [address] Nucleated RBC (Bld) [#/Vol] 0 10*3/uL Normal 0-5 [facility] Comment on above: Performed By: #### L 500.4050, L501.4021, L100.0100 #### [facility] [address] [place], [address] Platelet mean volume (Bld) [Entitic vol] 10.1 fL Normal 6.2-12.0 [facility] Comment on above: Performed By: #### L 500.4050, L501.4021, L100.0100 #### [facility] [address] [place], [address] Platelets (Bld) [#/Vol] 299 10*3/uL Normal 150-450 [facility] Comment on above: Performed By: #### L 500.4050, L501.4021, L100.0100 #### [facility] [address] [place], [address] RBC (Bld) [#/Vol] 4.06 10*6/uL Low 4.2-5.4 [facility] Comment on above: Performed By: #### L 500.4050, L501.4021, L100.0100 #### [facility] [address] [place], [address] RDW SD 43.9 fl Normal 35.1-43.9 [facility] Comment on above: Performed By: #### L 500.4050, L501.4021, L100.0100 #### [facility] [address] [place], [address] WBC (Bld) [#/Vol] 14.1 10*3/uL High 4.4-11.0 [facility] Comment on above: Performed By: #### L 500.4050, L501.4021, L100.0100 #### [facility] [address] [place], [address] Comprehensive Metabolic Prof ilon 10-21-2024 Albumin [Mass/Vol] 4.1 g/dL Normal 3.5-5.0 [facility] Comment on above: Performed By: #### L 500.4050, L501.4021, L100.0100 #### [facility] [address] [place], [address] Albumin/Globulin [Mass ratio] 1.6 {ratio} Normal 0.9-2.4 [facility] Comment on above: Performed By: #### L 500.4050, L501.4021, L100.0100 #### [facility] [address] [place], [address] ALK PHOS 48 U/L Normal 35-104 [facility] Comment on above: Performed By: #### L 500.4050, L501.4021, L100.0100 #### [facility] [address] [place], [address] ALT [Catalytic activity/Vol] 22 U/L Normal <=34 [facility] Comment on above: Performed By: #### L 500.4050, L501.4021, L100.0100 #### [facility] [address] [place], [address] AST [Catalytic activity/Vol] 21 U/L Normal <=31 [facility] Comment on above: Performed By: #### L 500.4050, L501.4021, L100.0100 #### [facility] [address] [place], [address] BUN/CRE 14.6 RATIO Normal 10-20 [facility] Comment on above: Performed By: #### L 500.4050, L501.4021, L100.0100 #### [facility] [address] [place], [address] Calcium [Mass/Vol] 10.0 mg/dL Normal 7.6-11.0 [facility] Comment on above: Performed By: #### L 500.4050, L501.4021, L100.0100 #### [facility] [address] [place], [address] Chloride [Moles/Vol] 104 mmol/L Normal 98-108 [facility] Comment on above: Performed By: #### L 500.4050, L501.4021, L100.0100 #### [facility] [address] [place], [address] CO2 [Moles/Vol] 21.4 mmol/L Normal 21.0-32.0 [facility] Comment on above: Performed By: #### L 500.4050, L501.4021, L100.0100 #### [facility] [address] [place], [address] Creatinine [Mass/Vol] 0.58 mg/dL Low 0.70-1.20 [facility] Comment on above: Performed By: #### L 500.4050, L501.4021, L100.0100 #### [facility] [address] [place], [address] GAP 12 Normal 5-15 [facility] Comment on above: Performed By: #### L 500.4050, L501.4021, L100.0100 #### [facility] [address] [place], [address] GFR/1.73 sq M.predicted among non-blacks MDRD (S/P/Bld) [Vol rate/Area] 123 mL/min/{1.73_m2} Normal >60 [facility] Comment on above: Result Comment: mL/m in/1.73m2 CKD-EPI Creatinine Equation (2020) Performed By: #### L 500.4050, L501.4021, L100.0100 #### [facility] [address] [place], [address] Globulin (S) [Mass/Vol] 2.6 g/dL Normal 2.2-4.2 [facility] Comment on above: Performed By: #### L 500.4050, L501.4021, L100.0100 #### [facility] [address] [place], [address] Glucose [Mass/Vol] 100 mg/dL High 70-99 [facility] Comment on above: Performed By: #### L 500.4050, L501.4021, L100.0100 #### [facility] [address] [place], [address] Potassium [Moles/Vol] 3.7 mmol/L Normal 3.3-5.1 [facility] Comment on above: Performed By: #### L 500.4050, L501.4021, L100.0100 #### [facility] [address] [place], [address] Sodium [Moles/Vol] 137 mmol/L Normal 133-145 [facility] Comment on above: Performed By: #### L 500.4050, L501.4021, L100.0100 #### [facility] [address] [place], [address] T BILI < 0.15 Normal 0.00-1.30 [facility] Comment on above: Performed By: #### L 500.4050, L501.4021, L100.0100 #### [facility] [address] [place], [address] T PROT 6.8 g/dL Normal 5.9-8.4 [facility] Comment on above: Performed By: #### L 500.4050, L501.4021, L100.0100 #### [facility] [address] [place], [address] Urea nitrogen [Mass/Vol] 9 mg/dL Normal 4-19 [facility] Comment on above: Performed By: #### L 500.4050, L501.4021, L100.0100 #### [facility] [address] [place], [address] Emergency Department Summary on 10-21-2024 Emergency Department Summary [facility] Medical Records Department [address] [address] Emergency Department Summary 10/21/24 MR#: [id number] Acct: [id number] Name: KINSEY SOTELO Rep #: [id number] : 1990 34 From: Danish Land DO PCP: Care Physician,No Primary Status:DEP ER Location: ED ADDENDUM by Dr. Danish Land DO on 10/21/24 at 2335 Patient's troponin is less than 6. Patient urinalysis reviewed and showed 100 leukocyte esterase, negative nitrites, 0-5 white cells with rare bacteria, this was sent for culture. 10/21/24 2335 Cosigner Signature (if applicable): cc: No Primary Care Physician * Signed HPI History of Present Illness Chief Complaint: Hypertension Narrative Narrative: Patient is a 34-year-old female G4, P1 who presents to the emergency department with a chief complaint of elevated blood pressure, shortness of breath, chest pain. Patient states that with her previous she had hypertension at the end of this and since resolved. She states that today she felt some pressure in her chest and was overall not feeling well therefore she checked her blood pressure with a wrist cuff and noted was to be elevated to a systolic of the 180s. States that currently she is 7 weeks . Patient denies any history of blood clots denies any recent travel history. She states that she does have a history anxiety and feels like this has been elevated lately secondary to her worrying about her blood pressure. PFSH PFSH Home Medications ???Medication ???Instructions ???Recorded ???Last Taken ???Type vits,calcium no.78-iron 1 tab PO DAILY 02/23/20 02/22/20 1 3:30 History fumarate-folic acid 29 mg-1 mg tablet ondansetron 4 mg disintegrating 4 mg PO Q8H PRN PRN Nausea #10 tab s 10/14/22 Unknown Rx tablet Allergy/AdvReac Type Severity Reaction Status Date / Time No Known Allergies Allergy Verified 10/14/22 11:46 Surgical History History of tonsillectomy H/O dilation and curettage Social History (Updated 10/21/24 @ 22:11 by Fatemeh Garcia) household members: spouse housing: house Smoking Status: Former smoker ROS ROS ED ROS Narrative Constitutional: Denies fevers, chills, headaches Eyes: Denies change in vision double vision blurry vision Cardiovascular: Denies chest pain or palpitations currently Respiratory: Denies cough or wheezing shortness of breath currently Abdomen: Denies abdominal pain nausea vomit diarrhea : Denies vaginal bleeding, vaginal discharge or any other urinary symptoms Neurological: Denies numbness, weakness, tingling Musculoskeletal: Denies back pain Skin: Denies rashes or lesions EXAM Physical Exam Narrative Exam Narrative: General: Patient lying in bed rest, would not appear to be in acute distress Head: Atraumatic, normocephalic Eyes: PERRL bilaterally, EOMI bilateral, no conjunctival injection noted Neck: Soft, supple, trachea midline Cardiovascular: Regular in rhythm no murmurs gallops rubs noted Respiratory: Clear to auscultation bilaterally Abdomen: Soft, nondistended, nontender to palpation Extremities: +5/5 strength noted in the bilateral upper and lower extremities, radial pulses +2/4 in the upper extremities Neurological: Patient following commands knew that she was at [facility] year is 2024 Skin: Warm, dry, tact no rashes or lesions noted Const Vital Signs: 10/21/24 21:44 10/21/24 22:00 10/21/24 22:10 Temperature 98 F Temperature Source Oral Pulse Rate 108 H Respiratory Rate 16 Respiratory Effort Normal Non-Labored Respiratory Pattern Normal Blood Pressure 158/103 H 135/87 H Blood Pressure Mean 121 103 Pulse Ox 100 Oxygen Delivery Method Room Air 10/21/24 22:58 Temperature Temperature Source Pulse Rate 80 Respiratory Rate 18 Respiratory Effort Respiratory Pattern Blood Pressure 131/85 H Blood Pressure Mean 100 Pulse Ox 98 Oxygen Delivery Method MDM MDM MDM Narrative Medical decision making narrative: Patient is a 34-year-old female who presents to the emergency department chief complaint of hypertension in the setting of . On the differential diagnose includes Melamin to essential hypertension, hypertensive emergency. Once workup is obtained reviewed she will be reevaluated. After checking her blood pressure in the emergency department her blood pressure in the room was 132 systolic. Patient CBC reviewed and showed a white blood count of 14,000 she has a chronically elevated white blood cell count when compared to previous blood draws, hemoglobin is 12.5, plate count normal at 299. Patient sodium normal 137, potassium 3.7, creatinine was 0.58. Patient AST and ALT normal at 2 (more content not included)... Normal [facility] L501.4021on 10-21-2024 Trop T High Sen < 6 Normal <=14 [facility] Comment on above: Performed By: #### L 500.4050, L501.4021, L100.0100 #### [facility] [address] [place], [address] Urinalysis, Completeon 10-21 BACTERIA RARE Normal None Seen [facility] Comment on above: Order Comment: CLEAN CATCH Performed By: #### L 400.0001 #### [facility] [address] [place], [address] EPI,SQUAMOUS 0-5 SEEN Normal 5-10 [facility] Comment on above: Order Comment: CLEAN CATCH Performed By: #### L 400.0001 #### [facility] [address] [place], [address] RBC 0-5 SEEN Normal 0-5 [facility] Comment on above: Order Comment: CLEAN CATCH Performed By: #### L 400.0001 #### [facility] [address] [place], [address] WBC 0-5 SEEN Normal 0-5 [facility] Comment on above: Order Comment: CLEAN CATCH Performed By: #### L 400.0001 #### [facility] [address] [place], [address] Mucus Ql (Urine sed) [address] [facility] Comment on above: Order Comment: CLEAN CATCH Performed By: #### L 400.0001 #### [facility] [address] [place], [address] Absolute lymphocyte countOrd ered By: Dr. Christina on 10-14-2022 Lymphocytes Auto (Unsp spec) [#/Vol] 0.95 10*3/uL 0.83-4.51 [facility] Basophil percentageOrdered B y: Dr. Christina on 10-14-2022 Basophils/100 WBC (Bld) 0.3 % 0-1 [facility] Bilirubin [Mass/Vol] 0.20 mg/dL 0.20-1.00 [facility] Comment on above: For patients on eltr ombopag therapy, use of Dimension [place] TBIL is not recommended. Chloride [Moles/Vol] 107 mmol/L 98-107 [facility] Eosinophils/100 WBC (Bld) 0.0 % 0-5 [facility] Glucose [Mass/Vol] 110 mg/dL 74-106 [facility] Comment on above: Fasting Glucose resu lt from 100 to 125 mg/dL suggests IMPAIRED HOMEOSTASIS per A.D.A. criteria. Neutrophils (Bld) [#/Vol] 13.5 10*3/uL 2.0-7.7 [facility] Neutrophils/100 WBC (Bld) 90.5 % 47-70 [facility] Potassium [Moles/Vol] 4.0 mmol/L 3.5-5.1 [facility] Protein [Mass/Vol] 8.9 g/dL 6.4-8.2 [facility] Sodium [Moles/Vol] 140 mmol/L 136-145 [facility] WBC (Bld) [#/Vol] 14.9 10*3/uL 4.4-11.0 [facility] Beta hCG serum qualOrdered B y: Dr. Christina on 10-14-2022 Beta HCG ( test) Ql Negative [facility] Blood erythrocytes count (nu mber/volume)Ordered By: Dr. Christina on 10-14-2022 RBC (Bld) [#/Vol] 5.23 10*6/uL 4.2-5.4 [facility] Blood hemoglobin measurement (mass/volume)Ordered By: Dr. Christina on 10-14-2022 Hemoglobin (Bld) [Mass/Vol] 16.4 g/dL 12.0-15.0 [facility] Blood lymphocytes/100 leukoc ytesOrdered By: Dr. Christina on 10-14-2022 Lymphocytes/100 WBC (Bld) 6.4 % 19-41 [facility] Blood monocytes/100 leukocyt esOrdered By: Dr. Christina on 10-14-2022 Monocytes/100 WBC (Bld) 2.3 % 0-10 [facility] Blood platelet mean volumeOr dered By: Dr. Christina on 10-14-2022 Platelet mean volume (Bld) [Entitic vol] 9.8 fL 6.2-12.0 [facility] Determination of erythrocyte mean corpuscular volume (MCV)Ordered By: Dr. Christina on 10-14-2022 MCV (RBC) [Entitic vol] 92.4 fL 81-99 [facility] Hematocrit Auto (Bld) [Volum e fraction]Ordered By: Dr. Christina on 10-14-2022 Hematocrit (Bld) [Volume fraction] 48.3 % 37-47 [facility] - Chemistry and C hemistry - challengeOrdered By: Dr. Christina on 10-14-2022 ALP [Catalytic activity/Vol] 62 U/L 45-117 [facility] ALT [Catalytic activity/Vol] 24 U/L 13-56 [facility] CO2 [Moles/Vol] 28.0 mmol/L 21.0-32.0 [facility] Globulin (S) [Mass/Vol] 4.2 g/dL 2.2-4.2 [facility] Lipase [Catalytic activity/Vol] 58 U/L 13-75 [facility] Comment on above: Please note:LIPASE r evised reference range effective 22. New Lipase methodology. Expected to produce lower values than the previous assay method. NEW Reference Range: 13 - 75 U/L Urea nitrogen/Creatinine [Mass ratio] 15.2 mg/mg 10-20 [facility] - Hematology and Cell countsOrdered By: Dr. Christina on 10-14-2022 Erythrocyte distribution width (RBC) [Entitic vol] 46.3 fL 35.1-43.9 [facility] Erythrocyte distribution width (RBC) [Ratio] 13.6 % 11.6-14.6 [facility] Immature granulocytes/100 WBC (Bld) 0.500 % 0.0-0.9 [facility] Comment on above: IG% - Immature Granu locytes (promyelocytes, myelocytes and metamyelocytes) > 1% indicates that a LEFT SHIFT is Present. MCH (RBC) [Entitic mass] 31.4 pg 27.0-32.0 [facility] Nucleated RBC/100 WBC (Bld) [Ratio] 0 % 0-5 [facility] MCHC Auto (RBC) [Mass/Vol]Or dered By: Dr. Christina on 10-14-2022 MCHC (RBC) [Mass/Vol] 34.0 g/dL 32-36 [facility] No Panel InformationOrdered By: Dr. Christina on 10-14-2022 Estimated Creatinine Clearance Calc 83.70 ml/min [facility] Estimated GFR (MDRD) Amer 91 mL/min >60 [facility] Comment on above: GFR Calc Estimated GFR (MDRD) Non-Af Amer 75 mL/min >60 [facility] Comment on above: Non- GFR Calc Platelets bldOrdered By: Dr. Christina on 10-14-2022 Platelets (Bld) [#/Vol] 392 10*3/uL 150-450 [facility] Serum or plasma albumin esteban urement (mass/volume)Ordered By: Dr. Christina on 10-14-2022 Albumin [Mass/Vol] 4.7 g/dL 3.2-5.0 [facility] Serum or plasma albumin/glob ulin mass ratioOrdered By: Dr. Christina on 10-14-2022 Albumin/Globulin [Mass ratio] 1.1 {ratio} 0.9-2.4 [facility] Serum or plasma calcium esteban urement (mass/volume)Ordered By: Dr. Christina on 10-14-2022 Calcium [Mass/Vol] 9.9 mg/dL 8.5-10.1 [facility] Serum or plasma creatinine m easurement (mass/volume)Ordered By: Dr. Christina on 10-14-2022 Creatinine [Mass/Vol] 0.92 mg/dL 0.55-1.02 [facility] Comment on above: The validity of the calculated GFR & GFRAA in patients over 70 years has not been determined. Clinical correlation is essential. Serum or plasma urea nitroge n measurement (mass/volume)Ordered By: Dr. Christina on 10-14-2022 Urea nitrogen [Mass/Vol] 14 mg/dL 7-18 [facility] Thin prep Papanicolaou smear with manual screeningOrdered By: Dr. Christina on 10-14-2022 Thin prep Papanicolaou smear with manual screening 17 U/L 15-37 [facility] Thin prep Papanicolaou smear with manual screening 5 5-15 [facility] Progress Noteon 01-16-2020 [facility] Social Worker Authentication Interface Message Text Consultation has been requested by Dr. Rico Reason for Consult: Possible abnormality History: (Detailed history is noted in the genetic counselor's note) Pertinent historic issues: None The ultrasound performed at this visit revealed an abnormal 3 vessel view. Please refer to the ultrasound report for full details. Genetic Counseling Summary I discussed with the patient the following issues: 1. Noninvasive versus invasive methods for detection of aneuploidy 2. Follow up ultrasound examinations as scheduled 3. echocardiogram recommended but patient declines due to concern for COVID. Follow Up She expressed understanding of the above information. Please see the [facility] plan of care. The total patient time of the visit was 30 minutes, of which greater than 50% of the time was spent counseling and coordinating care. Discussion topics are listed above. Jaquelin Graf MD Normal [facility] Progress Noteon 01-10-2020 Public Health Social Worker Authentication Interface Message Text History for consult Normal [facility] Progress Noteon 01-02-2020 [facility] Social Worker Authentication Interface Message Text Dating for consult Normal [facility] URINE CULTURE,BACTERIALon URINE CULTURE,BACTERIAL PATIENT: KINSEY SOTELO LOCATION: [facility] BILL#: [id number] : 89 AGE: SEX: F ORDERED BY: GRETA BRAN SOURCE: URINE COLLECTED: 07/25/19 18:12 ANTIBIOTICS AT [facility].: RECEIVED : 07/26/19 00:35 SITE: Clean Catch/Voided R E S U L T S URINE CULTURE,BACTERIAL FINAL 07/27/19 15:54 ISOLATE1 : Escherichia coli >100,000 CFU/ML Organism E coli Antibiotic BP INTRP Ampicillin S Ceftriaxone S Cefotaxime S Cefazolin S Ciprofloxacin S Nitrofurantoin S Gentamicin S Levofloxacin S Piperc/Tazobact S Trimeth/Sulfa S Tetracycline S S=SUSCEPTIBLE I=INTERMEDIATE R=RESISTANT SDD=SUSCEPTIBLE DOSE DEPENDENT NS=NONSUSCEPTIBLE X=REPORTED IN ERROR Normal [facility] Comment on above: Performed By: #### U RINC #### [facility] [address] [place] [address] Beta HCG Quant, EDon 018 Beta HCG Quant, ED 0.1 mU/mL Normal <5.0 [facility] Comment on above: Result Comment: MARTHA JUAREZ Performed By: #### C BCDIF, CMP, LIPA, MG1, HCGED ####[facility] [address] [place] [phone] CBC and Differentialon 04-06 Abs Baso 0.04 k/uL Normal <0.11 [facility] Comment on above: Performed By: #### C BCDIF, CMP, LIPA, MG1, HCGED ####[facility] [address] [place] [phone] Abs Hernando 0.82 k/uL Normal <0.87 [facility] Comment on above: Performed By: #### C BCDIF, CMP, LIPA, MG1, HCGED ####[place] [address] Abs Neut 10.09 k/uL High 1.45-7.50 [facility] Comment on above: Performed By: #### C BCDIF, CMP, LIPA, MG1, HCGED ####[place] [address] Basophils/100 WBC Auto (Bld) 0.3 % Normal [facility] Comment on above: Performed By: #### C BCDIF, CMP, LIPA, MG1, HCGED ####[place] [address] Eosinophils Auto #/vol (Bld) 0.23 10*3/uL Normal <0.46 [facility] Comment on above: Performed By: #### C BCDIF, CMP, LIPA, MG1, HCGED ####[place] [address] Eosinophils/100 WBC Auto (Bld) 1.7 % Normal [facility] Comment on above: Performed By: #### C BCDIF, CMP, LIPA, MG1, HCGED ####[place] [address] Erythrocyte distribution width Auto Ratio (RBC) 12.4 % Normal 11.5-15.0 [facility] Comment on above: Performed By: #### C BCDIF, CMP, LIPA, MG1, HCGED ####[place] [address] Hematocrit Auto Volume Fraction (Bld) 42.5 % Normal 36.0-46.0 [facility] Comment on above: Performed By: #### C BCDIF, CMP, LIPA, MG1, HCGED ####[place] [address] Hemoglobin mass conc (Bld) 14.2 g/dL Normal 11.5-15.5 [facility] Comment on above: Performed By: #### C BCDIF, CMP, LIPA, MG1, HCGED ####[facility] [address] [place] [address] Lymphocytes Auto #/vol (Bld) 2.48 10*3/uL Normal 1.00-4.00 [facility] Comment on above: Performed By: #### C BCDIF, CMP, LIPA, MG1, HCGED ####[place] [address] Lymphocytes/100 WBC Auto (Bld) 18.2 % Normal [facility] Comment on above: Performed By: #### C BCDIF, CMP, LIPA, MG1, HCGED ####[place] [address] MCH Auto Entitic mass (RBC) 31.5 pG Normal 26.0-34.0 [facility] Comment on above: Performed By: #### C BCDIF, CMP, LIPA, MG1, HCGED ####[place] [address] MCHC Auto mass conc (RBC) 33.4 g/dL Normal 30.5-36.0 [facility] Comment on above: Performed By: #### C BCDIF, CMP, LIPA, MG1, HCGED ####[place] [address] MCV Auto Entitic volume (RBC) 94.2 fL Normal 80.0-100.0 [facility] Comment on above: Performed By: #### C BCDIF, CMP, LIPA, MG1, HCGED ####[place] [address] Monocytes/100 WBC Auto (Bld) 6.0 % Normal [facility] Comment on above: Performed By: #### C BCDIF, CMP, LIPA, MG1, HCGED ####[place] [address] Neutrophils/100 WBC Auto (Bld) 73.8 % Normal [facility] Comment on above: Performed By: #### C BCDIF, CMP, LIPA, MG1, HCGED ####[place] [address] Platelet mean volume Auto Entitic volume (Bld) 10.0 fL Normal 9.0-12.7 [facility] Comment on above: Performed By: #### C BCDIF, CMP, LIPA, MG1, HCGED ####[facility] [address] [place] [address] Platelets Auto #/vol (Bld) 339 10*3/uL Normal 150-400 [facility] Comment on above: Performed By: #### C BCDIF, CMP, LIPA, MG1, HCGED ####[facility] [address] [place] [address] RBC Auto #/vol (Bld) 4.51 10*6/uL Normal 3.90-5.20 [facility] Comment on above: Performed By: #### C BCDIF, CMP, LIPA, MG1, HCGED ####[facility] [address] [place] [address] WBC Auto #/vol (Bld) 13.66 10*3/uL High 3.70-11.00 [facility] Comment on above: Performed By: #### C BCDIF, CMP, LIPA, MG1, HCGED ####[facility] [address] [place] [address] Comp Metabolic Panelon 04-06 Albumin mass conc 4.7 g/dL Normal 3.9-4.9 [facility] Comment on above: Performed By: #### C BCDIF, CMP, LIPA, MG1, HCGED ####[facility] [address] [place] [address] ALP enzyme act/vol 46 U/L Normal 34-123 [facility] Comment on above: Performed By: #### C BCDIF, CMP, LIPA, MG1, HCGED ####[facility] [address] [place] [address] ALT enzyme act/vol 11 U/L Normal 7-38 [facility] Comment on above: Performed By: #### C BCDIF, CMP, LIPA, MG1, HCGED ####[facility] [address] [place] [address] Anion gap 3 molar conc 14 mmol/L Normal 9-18 [facility] Comment on above: Performed By: #### C BCDIF, CMP, LIPA, MG1, HCGED ####[facility] [address] [place] [address] AST enzyme act/vol 19 U/L Normal 13-35 [facility] Comment on above: Performed By: #### C BCDIF, CMP, LIPA, MG1, HCGED ####[facility] [address] [place] [address] Bilirubin mass conc 0.3 mg/dL Normal 0.2-1.3 [facility] Comment on above: Performed By: #### C BCDIF, CMP, LIPA, MG1, HCGED ####[facility] [address] [place] [address] Calcium mass conc 9.5 mg/dL Normal 8.5-10.2 [facility] Comment on above: Performed By: #### C BCDIF, CMP, LIPA, MG1, HCGED ####[place] [address] Chloride molar conc 104 mmol/L Normal 97-105 [facility] Comment on above: Performed By: #### C BCDIF, CMP, LIPA, MG1, HCGED ####[facility] [address] [place] [address] CO2 molar conc 24 mmol/L Normal 22-30 [facility] Comment on above: Performed By: #### C BCDIF, CMP, LIPA, MG1, HCGED ####[facility] [address] [place] [address] Creatinine mass conc 0.60 mg/dL Normal 0.58-0.96 [facility] Comment on above: Performed By: #### C BCDIF, CMP, LIPA, MG1, HCGED ####[facility] [address] [place] [address] eGFR- Amer. >60 Normal [facility] Comment on above: Performed By: #### C BCDIF, CMP, LIPA, MG1, HCGED ####[facility] [address] [place] [address] GFR/1.73 sq M predicted among non-blacks MDRD vol rate/area (S/P/Bld) mL/min/{1.73_m2} Normal [facility] Comment on above: Result Comment: eGFR (Estimated GFR) Units of measure: mL/min/1.73 meters squaredeGFR is derived from the reexpressed MDRD Study equation using the following parameters: serum creatinine, age, gender and race. The creatinine assay has been calibrated to be traceable to IDMS.An eGFR <60 mL/min/1.73m2 for >3 months is consistent with chronic kidney disease. Refer to KDOQI guidelines for clinical interpretation.In patients with unstable renal function, e.g. those with acute kidney injury, the eGFR may not accurately reflect actual GFR. Performed By: #### C BCDIF, CMP, LIPA, MG1, HCGED ####[facility] [address] [place] [phone] Glucose mass conc 93 mg/dL Normal 74-99 [facility] Comment on above: Result Comment: The [place] [employer] (ADA) provides guidance for cutoff values for fasting glucose and random glucose. The ADA defines fasting as no caloric intake for at least 8 hours. Fasting plasma glucose results between 100 to 125 mg/dL indicate increased risk for diabetes (prediabetes).Fasting plasma glucose results greater than or equal to 126 mg/dL meet the criteria for diagnosis of diabetes. In the absence of unequivocal hyperglycemia, results should be confirmed by repeat testing. In a patient with classic symptoms of hyperglycemia or hyperglycemic crisis, random plasma glucose results greater than or equal to 200 mg/dL meet the criteria for diagnosis of diabetes.Reference: Standards of Medical Care in Diabetes 2016, [place] [employer]. Diabetes Care. 2016.39(Suppl 1). Performed By: #### C BCDIF, CMP, LIPA, MG1, HCGED ####[facility] [address] [place] [phone] Potassium molar conc 4.3 mmol/L Normal 3.7-5.1 [facility] Comment on above: Performed By: #### C BCDIF, CMP, LIPA, MG1, HCGED ####[facility] [address] [place] [phone] Protein mass conc 7.6 g/dL Normal 6.3-8.0 [facility] Comment on above: Performed By: #### C BCDIF, CMP, LIPA, MG1, HCGED ####[facility] [address] [place] [phone] Sodium molar conc 142 mmol/L Normal 136-144 [facility] Comment on above: Performed By: #### C BCDIF, CMP, LIPA, MG1, HCGED ####[facility] [address] [place] [phone] Urea nitrogen mass conc 9 mg/dL Normal 7-21 [facility] Comment on above: Performed By: #### C BCDIF, CMP, LIPA, MG1, HCGED ####[facility] [address] [place] [phone] ED NOTEon 04-06-2018 ED NOTE HNO ID: [id number] thor: Vesta KapoorRn) KEYANNA Reynaervice: NursingAuthor Type: Registered NurseType: ED NotesFiled: 04/06/2018 10:43 AMNote Text: Discharge instructions d/w pt at bedside. Stated understanding with nofurther questions for this nurse. Encouraged f/u with PCP and referringdoctors given. Stated understanding.Prescription( S) were given X1. [facility] ED NOTE HNO ID: [id number] Author: Vesta Carpio) Axel RN Service: Nursing Author Type: Registered Nurse Type: ED Notes Filed: 04/06/2018 9:06 AM Note Text: Junior moser rounds on pt at bedside to assess. [facility] ED PROV NOTEon 04-06-2018 Protein mass conc HNO ID: [id number] thor: Junior Teixeira ([place])iService: Emergency MedicineAuthor Type: Physician AssistantType: ED Provider NotesFiled: 04/06/2018 10:32 AMNote Text:ED Provider NotePatient Name: Kinsey SoteloMRN: [id number] DATE: 04/06/18HistoryPatient presents with:Nausea AND LhwglipySsrihoxc41 year old healthy female presents to emergency department today withchief complaint of nausea vomiting and a headache times one day. Patientstates she drank wine last night and started experiencing nausea andvomiting the whole night. She states that she has had this happen to herbore after drinking alcohol and she was told that she might be allergicto alcohol Patient denies any chest pain or shortness of breath, deniesabdominal pain, fever or chills, urinary symptoms, or worse headache ofher life. Her last menstrual period was 2 weeks ago.No past medical history on file.No past surgical history on file.No family history on file.Social HistorySocial History Main Topics- Smoking status: Not on file- Smokeless tobacco: Not on file- Alcohol use Not on file- Drug use: Unknown- Sexual activity: Not on fileALLERGIESNo Known AllergiesReview of SystemsConstitutional: Negative for chills and fever.HENT: Negative for congestion and sore throat.Eyes: Negative for photophobia and visual disturbance.Respiratory: Negative for chest tightness, shortness of breath andwheezing.Cardiovascular: Negative for chest pain and palpitations.Gastrointestin al: Positive for nausea and vomiting. Negative for abdominalpain and blood in stool.Genitourinary: Negative for dysuria and hematuria.Musculoskeletal: Negative for neck pain and neck stiffness.Skin: Negative for color change.Neurological: Negative for dizziness and headaches.Psychiatric/Behav ioral: Negative for agitation and confusion.Physical ExamBP 149/92 Pulse 88 Temp (Src) 97.9 (Temporal Artery) Resp 18 Ht 5'6 (1.68m) Wt 130 lb (59.0kg) SpO2 96% BMI 20.99 kg/(m2).Physical ExamConstitutional: She is oriented to person, place, and time. She appearswell-developed and well-nourished.HENT:Head: Normocephalic and atraumatic.Eyes: Conjunctivae and EOM are normal.Neck: Normal range of motion. Neck supple.Cardiovascular: Normal rate and regular rhythm.Pulmonary/Chest: Effort normal and breath sounds normal. No respiratorydistress. She has no wheezes.Abdominal: Soft. Bowel sounds are normal. She exhibits no distension andno mass. There is no tenderness. There is no rebound and no guarding. Nohernia.Musculoskeletal: Normal range of motion.Neurological: She is alert and oriented to person, place, and time.Skin: Skin is warm and dry.Psychiatric: She has a normal mood and affect. Her behavior is normal.Diagnostic TestingED Labs Ordered and ReviewedCBC + DIFF - Abnormal; Notable for the following: Result Value Ref Range WBC 13.66 (*) 3.70 - 11.00 k/uL Abs Neut (ANC) 10.09 (*) 1.45 - 7.50 k/uL All other components within normal limitsCOMP METABOLIC PANELMAGNESIUM BLDLIPASE BLDCBC + DIFFBETA HCG, QUANTITATIVE FOR EDCOMP METABOLIC PANELBETA HCG, QUANTITATIVE FOR EDLIPASE BLDMAGNESIUM BLDURINALYSISProceduresED Course / Clinical ImpressionClinical Impressions as of Apr 06 1031Nausea and vomiting, intractability of vomiting not specified, unspecifiedvomiting type(R11.2) Nausea and vomiting, intractability of vomiting not specified,unspecified vomiting type (primary encounter diagnosis)Comment: acutePlan: ZofranFluidsRestSee pcpReturn to ed if sx worsenMDM / Disposition / PlanThe medical record is reviewed.Triage note is reviewed and incorporated.The nursing note is reviewed and consistent with patient's history andphysical exam findings. The vital signs were reviewed the the vital signsare : BP 149/92 Pulse 88 Temp 36.6 ?C (97.9 ?F) (Temporal Artery) Resp 18 Ht 167.6 cm (5' 6) Wt 59 kg (130 lb) SpO2 96% BMI20.98 kg/m?MDM:This is a well-appearing female who presents to the ED with a chiefcomplaint of nausea, vomiting and headache who is, afebrile ,hemodynamically stable, in no acute distress patient whose symptoms arecontrolled in the ED with ivf, zofran . Based on patient's pmh, chiefcomplaint and physical exam findings, differential diagnoses include acuteabdomen vs electrolyte imbalance, vs , vs gastritis.Labs and imaging studies reveal cbc with wbc of 13k, cmp and lipase allwithin normal limits negative hcgBased on patient's physical exam findings, clinical picture, lab resultsand imaging studies that were performed here today in the ED, at thistime, the following differential diagnoses such as acute abdomen is lesslikely due to unremarkable exam, vitals and labs,. The followingdifferential diagnosis such as pregnnacy is less likely due tounremarkable hcg.The following differential diagnosis such as pancreatitisis less likely due to unremarkable lipaseAfter ivf, and zofran ,she feels better, wants to go home, will give herhome zofranThe patient has remained hemodynamically stable throughout the entire EDvisit and is without objective evidence for acute process requiring urgentintervention or hospitalization. The patient and/or family had all thetests and diagnosis explained to them and were given both verbal andwritten discharge instructions. I answered the patient's question as wellas family to the best of my ability. The patient is stable for discharge,and pt is instructed to follow up with pcp and educated to return to ed ifsx worsen or any new symptoms. Pt agreeable with plan.At this time, based on the patient's history, physical exam findings, labresults and clinical picture , the most likely diagnosis is nausea andvomitingPt educated on the most common causes of Nausea and vomitingPt was sent home with prescription of zofranPt instructed to follow up with PCP in 1-2 daysDischarge care instructions, medications, follow up instructions, andreasons to return to the ED immediately, such as worsening of symptoms orany new symptoms, were provided verbally and in writing to patient(patient guardian / food service sales representatives), who verbalized understanding.This note was partially generated using Ligandal voice recognition system,and there may be some incorrect words, spellings, and punctuation thatwere not noted in checking the note before savingThe patient was DISCHARGED: Counseled patient and family regarding labresults AND suspected diagnosis AND need for follow-up. Discharged home withverbal and written instructions. They were instructed to return as neededfor persistent or worsening symptoms or any new concerns.Condition at time of disposition: stableSIGNATURE: Karen Rossi (Titi) [id number]/16/18 1032 Normal [facility] Lipaseon 04-06-2018 Lipase enzyme act/vol 23 U/L Normal 16- [facility] Comment on above: Performed By: #### C BCDIF, CMP, LIPA, MG1, HCGED ####[facility] [id number] [id number] Magnesiumon 04-06-2018 Magnesium mass conc 1.9 mg/dL Normal 1.7-2.3 [facility] Comment on above: Performed By: #### C BCDIF, CMP, LIPA, MG1, HCGED ####[facility] [id number] [place], [place] [id number] Vital Signs Date Time Vital Sign Value Performing Clinician Nell perez 02-09-2025 08:55-0400 Body mass index (BMI) [Ratio] 36.64 kg/m2 Fatemeh Haury HUMAN RESOURCES INTERN.PRODUCE ASSISTANT Work Phone: [facility] 02-09-2025 08:55-0400 Body weight 102.97 kg Fatemeh Haury HUMAN RESOURCES INTERN.PRODUCE ASSISTANT Work Phone: [facility] 02-09-2025 08:55-0400 Diastolic blood pressure 68 mm[Hg] Fatemeh Haury HUMAN RESOURCES INTERN.PRODUCE ASSISTANT Work Phone: [facility] 02-09-2025 08:55-0400 Systolic blood pressure 118 mm[Hg] Fatemeh Haury HUMAN RESOURCES INTERN.PRODUCE ASSISTANT Work Phone: [facility] 11-28-2024 10:20-0400 Body mass index (BMI) [Ratio] 34.86 kg/m2 Chiara Plotts HUMAN RESOURCES INTERN.CNM Work Phone: [facility] 11-28-2024 10:20-0400 Body weight 97.98 kg Chiara Plotts HUMAN RESOURCES INTERN.CNM Work Phone: [facility] 11-28-2024 10:20-0400 Diastolic blood pressure 74 mm[Hg] Chiara Plotts HUMAN RESOURCES INTERN.CNM Work Phone: [facility] 11-28-2024 10:20-0400 Systolic blood pressure 118 mm[Hg] Chiara Plotts HUMAN RESOURCES INTERN.CNM Work Phone: [facility] 10-26-2024 09:30-0400 Body height 167.6 cm Fatemeh Haury HUMAN RESOURCES INTERN.PRODUCE ASSISTANT Work Phone: [facility] 10-26-2024 09:30-0400 Body mass index (BMI) [Ratio] 34.7 kg/m2 Fatemeh Haury HUMAN RESOURCES INTERN.PRODUCE ASSISTANT Work Phone: [facility] 10-26-2024 09:30-0400 Body weight 97.52 kg Fatemeh Haury HUMAN RESOURCES INTERN.PRODUCE ASSISTANT Work Phone: [facility] 10-26-2024 09:30-0400 Diastolic blood pressure 70 mm[Hg] Fatemeh Holt APRN.CNP Work Phone: [facility] 10-26-2024 09:30-0400 Systolic blood pressure 114 mm[Hg] Fatemeh Holt APRN.CNP Work Phone: [facility] 10-14-2022 15:12-0400 Diastolic blood pressure 99 mm[Hg] [facility] 10-14-2022 15:12-0400 Heart rate 97 /min [facility] 10-14-2022 15:12-0400 Respiratory rate 14 /min [facility] 10-14-2022 15:12-0400 SaO2% (BldA) [Mass fraction] 97 % [facility] 10-14-2022 15:12-0400 Systolic blood pressure 131 mm[Hg] [facility] 10-14-2022 11:45-0400 Body height 167.64 cm [facility] 10-14-2022 11:45-0400 Body mass index (BMI) [Ratio] 29.2 kg/m2 [facility] 10-14-2022 11:45-0400 Body temperature 98 [degF] [facility] 10-14-2022 11:45-0400 Body weight 82.1 kg [facility] Encounters Encounter Date Encounter Type Care Provider Facility Start: 04-26-2025 End: 04-26-2025 ambulatory JAILENE WHITE Facility:[facility] Start: 04-12-2025 End: 04-12-2025 ambulatory LEONID CAMPBELL Facility:[facility] Start: 04-10-2025 End: 04-10-2025 ambulatory MERVIN COHN Facility:[facility] Start: 03-29-2025 End: 03-29-2025 ambulatory MERVIN COHN Facility:[facility] Start: 03-13-2025 End: 03-13-2025 ambulatory CHIARA JACQUES Facility:[facility] Start: 02-09-2025 End: 02-09-2025 Patient encounter procedure Fatemeh Holt APRN.PRODUCE ASSISTANT Work Phone: OB/Gynecology Comment on above: Encounter for superv ision of high risk in second trimester, antepartum (HCC) (Primary Dx); 23 weeks gestation of (HCC); Low TSH level; Obesity affecting in first trimester, unspecified obesity type (HCC); History of delivery; Anxiety disorder affecting , antepartum (HCC); History of gestational hypertension; Screening for diabetes mellitus; Supervision of high risk in second trimester (HCC) Start: 02-09-2025 End: 02-09-2025 [facility] Facility:[facility] Start: 01-09-2025 End: 01-09-2025 Patient encounter procedure [employer] [facility] [facility] Comment on above: Encounter for anatomic survey (HCC) (Primary Dx); 18 weeks gestation of (HCC); Obesity affecting in second trimester, unspecified obesity type (HCC) Start: 01-09-2025 End: 01-09-2025 ambulatory CHIARAVAUGHN JACQUES Facility:[facility] Start: 11-30-2024 End: 11-30-2024 Follow-up encounter Chiara Jacques APRN.JURGEN Work Phone: OB/Gynecology Start: 11-28-2024 End: 11-28-2024 [facility] CHIARA JACQUES Facility:[facility] Start: 11-28-2024 End: 11-28-2024 Patient encounter procedure Chiara Jacques HUMAN RESOURCES INTERN.DAVIDM Work Phone: OB/Gynecology Comment on above: Encounter for superv ision of high risk in first trimester, antepartum (HCC) (Primary Dx); 12 weeks gestation of (HCC); Obesity affecting in first trimester, unspecified obesity type (HCC); Anxiety disorder affecting , antepartum (HCC); History of gestational hypertension; Low TSH level Encounter for antena dimitry screening for malformation using ultrasound (HCC) (Primary Dx); 12 weeks gestation of (HCC) Start: 11-28-2024 End: [facility] Start: 11-07-2024 End: [facility] Start: 11-02-2024 End: 01-02-2025 Follow-up encounter Fatemeh Holt APRN.CNP Work Phone: OB/Gynecology Comment on above: Thyroid Start: 10-26-2024 End: 10-26-2024 Patient encounter procedure Fatemeh Holt APRN.CNP Work Phone: OB/Gynecology Comment on above: Encounter for superv ision of high risk in first trimester, antepartum (HCC) (Primary Dx); 7 weeks gestation of (HCC); with uncertain dates in first trimester (HCC); Screen for STD (sexually transmitted disease); Screening for cervical cancer; Encounter for screening for human papillomavirus (HPV); History of delivery; History of induced ; History of gestational hypertension; Obesity affecting in first trimester, unspecified obesity type (HCC); Anxiety disorder affecting , antepartum (HCC); Nausea and vomiting during (HCC); Constipation during in first trimester (HCC); History of premature rupture of membranes Start: 10-26-2024 End: 10-26-2024 ambulatory FATEMEH HOLT Facility:[facility] Start: 10-21-2024 End: 10-21-2024 Emergency department patient visit [facility] Facility:[facility] Start: 10-14-2022 End: 10-14-2022 Emergency department patient visit [facility] Start: 04-06-2018 End: 04-06-2018 Emergency department patient visit [facility] Procedures Date Procedure Procedure Detail Performing Clinician Start: 01-09-2025 Us preg uterus after 1st trimest 06/22 gestation Fatemeh Holt APRN.CNP Work Phone: Start: 11-28-2024 Us preg uterus after 1st trimest 06/22 gestation Fatemeh Holt APRN.CNP Work Phone: Start: 11-07-2024 Antibody screen FATEMEH KERN Comment on above: Order Comment: Speci men Type: BLOOD SPECIMEN Ordering Facility: [facility] Address: [address] [place] [address] Performed By: #### T SPN #### [facility] CLIA [id number] [address] [place], [place] [address]K [address] [facility] [place] Start: 10-26-2024 Us uterus limited 1/> fetuses Fatemeh Holt PARRIS Work Phone: Start: 07-25-2019 Follow-up visit Plan of Treatment Date Care Activity Detail Author Start: 01-13-2067 RSV Vaccine (1 - 1-d ose 75+ series) RSV Vaccine (1 - 1-dose 75+ series) [facility] Start: 10-26-2029 Screening for malign ant neoplasm of cervix Cervical Cancer Screening [facility] Start: 04-13-2025 RSV Vaccine (1 - Ris k 1-dose series) RSV Vaccine (1 - Risk 1-dose series) [facility] Start: 03-13-2025 End: 03-13-2025 Patient encounter procedure 03/13/2025 9:15 AM EDT Routine Office Visit OB/Gynecology [address] [place], [place] [id number] Anita Sethi APRN.CN [address] [place], [place] [id number] OB OB/Gynecology Comment on above: OB Start: 02-20-2025 Influenza vaccination C [facility] Start: 02-09-2025 End: 05-11-2025 ANEMIA REFLEX PANEL ANEMIA REFLEX PANEL Lab Routine Encounter for supervision of high risk in second trimester, antepartum (HCC) 23 weeks gestation of (HCC) Expected: 02/09/2025, Expires: 05/11/2025 [facility] Comment on above: Expected: 02/09/2025 , Expires: 05/11/2025 Start: 02-09-2025 End: 02-09-2026 GESTATIONAL GLUCOSE SCREEN, 1-HOUR, 50 GRAM, NON-FASTING GESTATIONAL GLUCOSE SCREEN, 1-HOUR, 50 GRAM, NON-FASTING Lab Routine Encounter for supervision of high risk in second trimester, antepartum (HCC) 23 weeks gestation of (HCC) Screening for diabetes mellitus Expected: 02/09/2025, Expires: 02/09/2026 [facility] Work Phone: Comment on above: Expected: 02/09/2025 , Expires: 02/09/2026 Start: 02-09-2025 End: 02-09-2026 SYPHILIS TREPONEMAL W/REFLEX SYPHILIS TREPONEMAL W/REFLEX Lab Routine Encounter for supervision of high risk in second trimester, antepartum (HCC) 23 weeks gestation of ([facility]) Expected: 02/09/2025, Expires: 02/09/2026 [facility] Comment on above: Expected: 02/09/2025 , Expires: 02/09/2026 Start: 02-09-2025 End: 05-11-2025 THYROGLOBULIN ANTIBODY THYROGLOBULIN ANTIBODY Lab Routine Low TSH level Expected: 02/09/2025, Expires: 05/11/2025 [facility] Comment on above: Expected: 02/09/2025 , Expires: 05/11/2025 Start: 02-09-2025 End: 02-09-2025 Patient encounter procedure 02/09/2025 9:00 AM EDT Routine Office Visit OB/Gynecology [address] [place], [place] [id number] Fatemhe Holt APRN.PRODUCE ASSISTANT [address] [place] [address] OB OB/Gynecology Comment on above: OB Start: 01-09-2025 End: 01-09-2025 Patient encounter procedure [facility] Comment on above: ANATOMY OB Start: 11-28-2024 End: 02-27-2025 Chromosome 21 trisomy [Presence] in Blood or Tissue by Cytogenetics [facility] Comment on above: Expected: 11/28/2024 , Expires: 02/27/2025 Start: 11-28-2024 End: 02-27-2025 THYROID PEROXIDASE ANTIBODY [facility] Work Phone: Comment on above: Expected: 11/28/2024 , Expires: 02/27/2025 Start: 11-28-2024 End: 02-27-2025 THYROID STIMULATING IMMUNOGLOBULIN BLOOD [facility] Comment on above: Expected: 11/28/2024 , Expires: 02/27/2025 Start: 11-28-2024 End: 11-28-2024 Patient encounter procedure [facility]aternal [facility] Comment on above: with uncer tain dates in first trimester (HCC) [Z34.91] 1st OB - LMP 09/01/24 Start: 10-26-2024 End: 01-25-2025 ANEMIA REFLEX PANEL ANEMIA REFLEX PANEL Lab Routine with uncertain dates in first trimester (HCC) Expected: 10/26/2024, Expires: 01/25/2025 [facility] Work Phone: Comment on above: Expected: 10/26/2024 , Expires: 01/25/2025 Start: 10-26-2024 End: 01-25-2025 Comprehensive metabolic 2000 panel - Serum or Plasma COMPREHENSIVE METABOLIC PANEL Lab Routine History of gestational hypertension Expected: 10/26/2024, Expires: 01/25/2025 [facility] Comment on above: Expected: 10/26/2024 , Expires: 01/25/2025 Start: 10-26-2024 End: 01-25-2025 Hemoglobin A1c in Blood HEMOGLOBIN A1C Lab Routine with uncertain dates in first trimester (HCC) Expected: 10/26/2024, Expires: 01/25/2025 [facility] Comment on above: Expected: 10/26/2024 , Expires: 01/25/2025 Start: 10-26-2024 End: 01-25-2025 Hepatitis B virus surface Ag [Presence] in Serum HEPATITIS B SURFACE ANTIGEN Lab Routine with uncertain dates in first trimester (HCC) Expected: 10/26/2024, Expires: 01/25/2025 [facility] Comment on above: Expected: 10/26/2024 , Expires: 01/25/2025 Start: 10-26-2024 End: 01-25-2025 Hepatitis C virus Ab [Presence] in Serum HEPATITIS C ANTIBODY IA WITH CONFIRMATION Lab Routine with uncertain dates in first trimester (HCC) Expected: 10/26/2024, Expires: 01/25/2025 [facility] Comment on above: Expected: 10/26/2024 , Expires: 01/25/2025 Start: 10-26-2024 End: 01-25-2025 HIV 1+2 Ab [Presence] in Serum or Plasma by Immunoassay HIV 1/2 COMBO WITH REFLEX TO DIFFERENTIATION Lab Routine with uncertain dates in first trimester (HCC) Expected: 10/26/2024, Expires: 01/25/2025 [facility] Comment on above: Expected: 10/26/2024 , Expires: 01/25/2025 Start: 10-26-2024 End: 10-26-2025 OBSTETRIC ULTRASOUND WHI OBSTETRIC ULTRASOUND WHI Anc Imaging Routine with uncertain dates in first trimester ([facility]) Expected: 10/26/2024, Expires: 10/26/2025 [facility] Comment on above: Expected: 10/26/2024 , Expires: 10/26/2025 Start: 10-26-2024 End: 01-25-2025 Protein/Creatinine [Mass Ratio] in Urine PROTEIN / CREATININE RATIO Lab Routine History of gestational hypertension Expected: 10/26/2024, Expires: 01/25/2025 [facility] Comment on above: Expected: 10/26/2024 , Expires: 01/25/2025 Start: 10-26-2024 End: 01-25-2025 RUBELLA IGG ANTIBODY RUBELLA IGG ANTIBODY Lab Routine with uncertain dates in first trimester ([facility]) Expected: 10/26/2024, Expires: 01/25/2025 [facility] Comment on above: Expected: 10/26/2024 , Expires: 01/25/2025 Start: 10-26-2024 End: 01-25-2025 SYPHILIS TREPONEMAL W/REFLEX SYPHILIS TREPONEMAL W/REFLEX Lab Routine with uncertain dates in first trimester ([facility]) Expected: 10/26/2024, Expires: 01/25/2025 [facility] Comment on above: Expected: 10/26/2024 , Expires: 01/25/2025 Start: 10-26-2024 End: 01-25-2025 Thyrotropin [Units/volume] in Serum or Plasma THYROID STIMULATING HORMONE Lab Routine History of gestational hypertension Expected: 10/26/2024, Expires: 01/25/2025 [facility] Comment on above: Expected: 10/26/2024 , Expires: 01/25/2025 Start: 10-26-2024 End: 01-25-2025 TYPE + SCREEN TYPE + SCREEN Blood Bank Routine with uncertain dates in first trimester ([facility]) Expected: 10/26/2024, Expires: 01/25/2025 [facility] Comment on above: Expected: 10/26/2024 , Expires: 01/25/2025 Start: 02-21-2024 Covid-19 Vaccine ( season) Covid-19 Vaccine () [facility] Start: 10-14-2022 [facility] Start: 01-13-2019 HPV Vaccine (1 - 3-d ose SCDM series) HPV Vaccine (1 - 3-dose SCDM series) [facility] Start: 01-13-2013 Screening for malign ant neoplasm of cervix Cervical Cancer Screening [facility] Start: 01-13-2011 Hepatitis B Vaccine (1 of 3 - 19+ 3-dose series) Hepatitis B Vaccine (1 of 3 - 19+ 3-dose series) [facility] Start: 01-13-2011 Urine microalbumin profile DTaP,Tdap,Td Vaccine (1 - Tdap) [facility] Start: 01-13-2010 Anxiety Screening Anxiety Screening [facility] Start: 01-13-2010 Depression Screening Depression Scre ening [facility] Start: 01-13-2010 Hepatitis C screening Hepatitis C Sc reening [facility] Start: 01-13-2010 HIV screening HIV Screening [facility] Bacteria identified in Urine by Culture BACTERIAL CULTURE, URINE Microbiology Routine with uncertain dates in first trimester (HCC) 10/26/2024 10:09 AM EDT [facility] Bilirubin measuremen t, urine [facility] Chlamydia trachomatis+Neisseria gonorrhoeae DNA [Presence] in Unspecified specimen by MICHAEL with probe detection GONORRHEA/CHLAMYDIA NAAT Lab Routine with uncertain dates in first trimester (HCC) Screen for STD (sexually transmitted disease) 10/26/2024 10:09 AM EDT [facility] Hemoglobin [Presence ] in Urine [facility] Measurement of keton es in urine using dipstick [facility] Microscopic urinalysis [facility] PAP TEST PAP TEST Lab Rou liliana with uncertain dates in first trimester (HCC) Screening for cervical cancer Encounter for screening for human papillomavirus (HPV) 10/26/2024 10:09 AM EDT [facility] Patient Education ED Abdominal P ain Unkn Cause Fem ED Vomiting (Adult) [facility] Work Phone: Patient referral [facility] Work Phone: pH of Urine [facility] Specific gravity of Urine [facility] TRICHOMONAS VAGINALI S NAAT TRICHOMONAS VAGINALIS NAAT Lab Routine with uncertain dates in first trimester (HCC) Screen for STD (sexually transmitted disease) 10/26/2024 10:09 AM [facility], blood, qualitative [facility] Urine dipstick for glucose [facility] Urine dipstick for leukocyte esterase [facility] Urine dipstick for nitrite [facility] Urine dipstick for protein [facility] Urine examination [facility] Urine microscopy: epithelial cells [facility] Urine Microscopy: wh ite cells [facility] Urobilinogen [Presen ce] in Urine [facility] Payers Date Payer Category Payer Self-pay [id number] 2024 Private Health Insurance BERNARDA hobbs [id number] 2024 Private Health Insurance [id number] Unknown [facility] [id number] Unknown [facility] [id number] Unknown [id number] Social History Date Type Detail Facility [facility]: [facility]14[facility] Start: 02-23-2020 None [facility] Start: 1990 Sex Assigned At Female W [facility] Start: 10-25-2024 Tobacco smoking stat us NHIS Ex-smoker [facility] History of tobacco use Current smoker [facility] History of tobacco use Cigarette Smoker C [facility] Start: 10-25-2024 Tobacco use and exposure Smokeless tobacco non-user [facility] Start: 10-26-2024 End: 02-09-2025 Alcoholic beverage intake Ex-drinker (finding) [facility] Start: 10-26-2024 End: 11-07-2024 History of Social function [facility] Start: 10-26-2024 End: 11-07-2024 Tobacco use panel [facility] Start: 10-25-2024 Education 13 [facility] Start: 09-15-2024 [facility] Start: 10-19-2024 Gender identity Identifies as female gender (finding) [facility] Start: 10-19-2024 Sexual orientation Heterosexual (fin ruba) [facility] Start: 05-23-2012 National Score (1-100), lower number is lower risk 75 [facility] NEGATED: Highlighted row [facility] Goals Date Patient Goal Desired Activity /State Personal health goal Clinical Notes 10-14-2022 to 03-29-2025 Quick Notes - Fatemeh Holt APRN.[facility] - 02/09/2025 8:58 AM EDTPrenatal Quick Notes - Fatemeh Holt APRN.[facility] - 02/09/2025 8:58 AM EDTPatient InstructionsPatient Instructions Note Date & Type Note Facility 03-29-2025 Note HNO ID: [id number] Author: CANDY DESIR MA Service: ? Author Type: Director Medicare Sales Type: Progress Notes Filed: 03/29/2025 11:38 Note Text: Patient identified by name and date of . Kinsey Burns presents today for a vaccination of Tdap. Patient denies an allergy to latex: yes Patient denies a severe (life-threatening) allergy to a previous dose of Tdap, DTP, DTaP, DT or Td vaccine. Yes Patient denies history of epilepsy or neurological problems: Yes Patient is afebrile and denies being moderately or severely ill: Yes Patient denies history of Guillain-Nunnelly Syndrome (a severe paralytic illness): Yes Tdap Adacel injection was given without incident. See immunizations for details of immunizations administered today. VIS sheet provided: Yes Provider Dr Cohn was present in office at time of injection. Candy Desir MA [facility] 02-09-2025 Progress note Formatting of t his note might be different from the original. EH - S: Kinsey is a 35 year old female who presents at 23w0d for a routine visit. Feeling movement. Denies headache, visual changes, chest pain, shortness of breath, vaginal bleeding, leakage of fluid, or dysuria. O: See flow sheet Gen: No apparent distress Abd: Gravid, nontender, S=D, 12 lb TWG ASSESSMENT/PLAN: 1. Encounter for supervision of high risk in second trimester, antepartum (HCC) - ICD9: V23.9, ICD10: O09.92 (primary diagnosis) - Continue PNV and LDA 2. 23 weeks gestation of (HCC) - ICD9: V22.2, ICD10: Z3A.23 - GTT, CBC, RPR next visit - Anatomy ultrasound reviewed 3. Low TSH level - ICD9: 794.5, ICD10: R79.89 - Recheck with labs 4. Obesity affecting in first trimester, unspecified obesity type ([facility]) - ICD9: 649.13, ICD10: O99.211 - Pre BMI 34 - Reviewed weight gain guidelines 5. History of delivery - ICD9: V13.21, ICD10: Z87.51 - 36 weeks in 2020 6. Anxiety disorder affecting , antepartum (HCC) - ICD9: 648.43, 300.00, ICD10: O99.340, F41.9 - Reports mood stable, but has had some increased stress with recent loss of family member 7. History of gestational hypertension - ICD9: V13.29, ICD10: Z87.59 - Continue LDA, recommend 162 mg nightly PTL precautions reviewed. RTO in 4 weeks or sooner as needed. Fatemeh Holt APRN.PRODUCE ASSISTANT [facility] 02-09-2025 Miscellaneous Notes EH - S: Kinsey is a 35 year old female who presents at 23w0d for a routine visit. Feeling movement. Denies headache, visual changes, chest pain, shortness of breath, vaginal bleeding, leakage of fluid, or dysuria. O: See flow sheet Gen: No apparent distress Abd: Gravid, nontender, S=D, 12 lb TWG ASSESSMENT/PLAN: 1. Encounter for supervision of high risk in second trimester, antepartum ([facility]) - ICD9: V23.9, ICD10: O09.92 (primary diagnosis) - Continue PNV and LDA 2. 23 weeks gestation of ([facility]) - ICD9: V22.2, ICD10: Z3A.23 - GTT, CBC, RPR next visit - Anatomy ultrasound reviewed 3. Low TSH level - ICD9: 794.5, ICD10: R79.89 - Recheck with labs 4. Obesity affecting in first trimester, unspecified obesity type ([facility]) - ICD9: 649.13, ICD10: O99.211 - Pre BMI 34 - Reviewed weight gain guidelines 5. History of delivery - ICD9: V13.21, ICD10: Z87.51 - 36 weeks in 2019 6. Anxiety disorder affecting , antepartum ([facility]) - ICD9: 648.43, 300.00, ICD10: O99.340, F41.9 - Reports mood stable, but has had some increased stress with recent loss of family member 7. History of gestational hypertension - ICD9: V13.29, ICD10: Z87.59 - Continue LDA, recommend 162 mg nightly PTL precautions reviewed. RTO in 4 weeks or sooner as needed. Fatemeh Holt APRN.PRODUCE ASSISTANT documented in this encounter [facility] 02-09-2025 Instructions Johana Goetz MA - 02/09/2025 8:53 AM EDT SEQUENTIAL SCREENINGS The [facility] offers sequential screenings for women who are interested in screenings for chromosomal abnormalities and certain defects during a . The sequential screen combines ultrasound and blood tests to determine the risk of chromosomal abnormalities, including Down's Syndrome (Trisomy 21) and Trisomy 18, as well as open neural tube defects including spina bifida. Ultrasound examination is performed between 11 weeks and 13 weeks gestational age. Blood tests are drawn after the ultrasound and again later in the between 15 and 21 weeks gestational age. Please let your physician know if you are interested in this testing. It will require an appointment with our engine emission technician. This is not an ultrasound performed by a physician in our office during a routine visit. SIGNS AND SYMPTOMS OF LABOR 1. Contractions every 10 minutes or more often 2. Clear, pink, or brownish fluid (water) leaking from vagina 3. Feeling that baby is pushing down, pressure 4. Low, dull backache 5. Cramps that feel like a period 6. Cramps with or without diarrhea If you notice any of the above symptoms, contact our office at [phone] and ask to speak with a nurse. After hours, you can call doctors registry at [phone] OR call [facility] at [phone] and ask to have the doctor certification and selection specialist paged. If you consider this an emergency, dial [phone] or go to your nearest emergency department. NEED HELP? Are you dealing with a violent or abusive relationship? Are you a victim of rape or sexual assult? Call [facility] ([place]) 24 hour Crisis Hotline: 497.265.3819 or 735-882-8923. MANUAL Your Guide to a Healthy manual is now on-line. Visit [email or web address] to download your free copy Oral Glucose Tolerance Test During Your provider has ordered an oral glucose tolerance test. For more information: My [facility] Oral Glucose Tolerance Test How do I prepare for my one-hour glucose test? You don t need to prepare for your one-hour glucose screening. Most care providers recommend avoiding foods high in sugar for breakfast. For example, pancakes, donuts or juice. If you re testing later in the day, be aware that eating large amounts of sugar for lunch may affect your results. Can you eat before a glucose screening test? Yes, you can eat normally before your glucose screening test. What can I expect on the day of the glucose screening? On the day of your glucose screening, follow instructions given to you by your care provider or the lab (if applicable). Be sure to know exactly where to go for the screening and if you need an appointment. Safe Sleep for [place] For more information: [email or web address] Safe Sleep Healthy babies are safest when sleeping on their backs at nighttime and during naps. Side sleeping is not as safe as back sleeping and is not advised. documented in this encounter [facility] 11-30-2024 Note Addended by: CHIARA JACQUES on: 11/30/2024 11:54 AM Modules accepted: Orders [facility] 11-30-2024 Miscellaneous Notes Addended by: CHIARA JACQUES on: 11/30/2024 11:54 AM Modules accepted: Orders Addended by: VERENA AMBRIZ on: 11/30/2024 10:02 AM Modules accepted: Orders documented in this encounter [facility] 11-30-2024 Note Addended by: VERENA AMBRIZ on: 11/30/2024 10:02 AM Modules accepted: Orders [facility] 11-28-2024 Progress note Formatting of t his note might be different from the original. S: Kinsey Burns is a 34 year old female who presents at 12 weeks gestation for a routine visit with ultrasound. C/O occasional headaches that resolve with Tylenol. Denies visual changes, chest pain, shortness of breath, vaginal bleeding, leakage of fluid, or dysuria. Feeling well, no complaints. O: See flow sheet Gen: No apparent distress Abd: Gravid, non tender ASSESSMENT/PLAN: 1. Encounter for supervision of high risk in first trimester 2. 12 weeks gestation of 3. Obesity affecting in first trimester 4. Anxiety disorder affecting 5. History of gestational hypertension 6. Low TSH level - Reports mood is stable- most anxiety is health related- increased anxiety coming to office visits - Reports thyroid levels off last then returned to normal - E-consult with Endocrinology completed- Recommended labs ordered - THYROID STIMULATING HORMONE - T3, FREE - T4 FREE/FREE THYROXINE - THYROID PEROXIDASE ANTIBODY - THYROID STIMULATING IMMUNOGLOBULIN BLOOD - [id number] PLUS - Continue vitamins daily - Start ASA nightly - RTO 4 weeks or sooner if needed Chiara Jacques APRN.CNM [facility] 11-28-2024 Miscellaneous Notes S: Kinsey Burns is a 34 year old female who presents at 12 weeks gestation for a routine visit with ultrasound. C/O occasional headaches that resolve with Tylenol. Denies visual changes, chest pain, shortness of breath, vaginal bleeding, leakage of fluid, or dysuria. Feeling well, no complaints. O: See flow sheet Gen: No apparent distress Abd: Gravid, non tender ASSESSMENT/PLAN: 1. Encounter for supervision of high risk in first trimester 2. 12 weeks gestation of 3. Obesity affecting in first trimester 4. Anxiety disorder affecting 5. History of gestational hypertension 6. Low TSH level - Reports mood is stable- most anxiety is health related- increased anxiety coming to office visits - Reports thyroid levels off last then returned to normal - E-consult with Endocrinology completed- Recommended labs ordered - THYROID STIMULATING HORMONE - T3, FREE - T4 FREE/FREE THYROXINE - THYROID PEROXIDASE ANTIBODY - THYROID STIMULATING IMMUNOGLOBULIN BLOOD - [id number] PLUS - Continue vitamins daily - Start ASA nightly - RTO 4 weeks or sooner if needed Chiara Jacques APRN.CNM documented in this encounter [facility] 11-10-2024 Note HNO ID: [id number] Author: MADY SANCHEZ MD Service: ? Author Type: Physician Type: Progress Notes Filed: 11/10/2024 22:19 Note Text: Thank you for requesting an Endocrinology E-Consult for your 34 year old female patient, Kinsey Burns for evaluation/treatment of Thyroid during . Your clinical question: What are recommendations for a low TSH at 9 weeks of ? Relevant labs: Latest Ref Rng 11/07/2024 TSH 0.270 - 4.200 mIU/L 0.041 (L) Free T4 0.9 - 1.7 ng/dL 1.1 Comments and recommendations: The most common cause is physiologic low TSH because of high HCG. No treatment would be needed. Other causes cannot be ruled out, though less likely, such as: Mild hyperthyroidism caused by Graves disease. Mild hyperthyroidism caused by a toxic nodule (or nodules). Usually, no treatment would be recommended for mild cases of either causes of hyperthyroidism, only monitoring. Hyperthyroid phase of Shanel's thyroiditis. This is of special concern because of the risk of developing hypothyroidism. This condition should be avoided during whenever possible. Suggested work up: Obtain TSH, free T4 and free T3 in 4 weeks. Obtain thyroid antibodies, either now or in 4 weeks with other labs: Thyroid peroxidase AB Thyroid stimulating immunoglobulin (TSI) A, next available, appointment should be scheduled by requesting provider Diagnosis: Thyroid disorder during . Time: 8 minutes. Please don't hesitate to contact us if you have further questions. Sincerely, Mady Sanchez MD, ARIC [facility] 11-09-2024 Telephone encounter Note Spoke to lab client services and they are adding on the T4 lab to her 11/07/24 blood work. Verena Ambriz RN [facility] 11-09-2024 Miscellaneous Notes Spoke to lab client services and they are adding on the T4 lab to her 11/07/24 blood work. Verena Ambriz RN Please call lab to see if T4 can be added on to blood work. Fatemeh Holt APRN.ANNETTE documented in this encounter [facility] 11-09-2024 Telephone encounter Note Please call lab to see if T4 can be added on to blood work. Fatemeh Holt APRN.ANNETTE [facility] 10-25-2024 Note HNO ID: [id number] Author: FATEMEH HOLT APRN.CNP Service: ? Author Type: Nurse Practitioner Type: Progress Notes Filed: 10/26/2024 10:40 Note Text: Middle [employer] Resource Teacher offered: Patient declines. INITIAL OB ASSESSMENT HPI: Kinsey is a 34 year old White Female here to establish Obstetrical Care. Patient's last menstrual period was 09/01/2024. from OB Dating Form. was planned Complaints: Heart racing and skipping (intermittent, related to anxiety) OB History Gravida2 Para1 Term0 Preterm1 AB1 Living1 SAB0 IAB1 Ectopic0 Multiple0 Live Births1 Previous history: Prior : No History of 4th degree laceration: No History of shoulder dystocia: No History of Hypertensive disorders including pre-eclampsia or gestational hypertension: Hypertension during the 3rd trimester History of gestational diabetes: No Patient's Risk Screening for delivery: Have you had a prior austin between 20w and 36w6d? No How many pregnancies have you had before? 4 Did you have a previous baby with a GBS Infection? No Please select all that apply for any prior : N/A MEDICAL/PSYCHOSOCIAL HISTORY: History of hemorrhage or bleeding concerns: No Thyroid Disease: No History of chronic hypertension: No History of pre-existing diabetes: No No results found for: ABORHD BMI 34.70 kg/(m2) Last Pap: 2019 History of abnormal pap: No Prior treatment for cervical dysplasia: none. Last HPV: never done History of STDs: N/A Partner History of STDs: None Did you have a partner with Herpes? No Tobacco use: No E-Cigarette/Vaping Use: No Caffeine use: No Drug use: No Alcohol use: No Multivitamin with Folic acid: Yes Would refuse blood transfusion if medically necessary: No Social Needs: How often does this describe you? I don't have enough money to pay my bills: Never Within the past 12 months, have you worried that your food would run out before you had money to buy more? Never In the past 12 months, has lack of reliable transportation kept you from going to medical appointments or work, or from getting things needed for daily living? Never In the past 12 months, have you had any concerns about having a place to live, or about the condition or quality of your housing? Never Would you like more information on any of the following (please check all that apply)? Centering (group care classes); Machine Engineer; Director Maternal Child care Social History: Do you have any history of depression, anxiety, PTSD, or other mood problems? No Do you have a history of abuse or trauma that may impact your experience? No Are you currently employed? No Depression/Anxiety Screening: denies, admits to symptoms of depression. OB Depression and Anxiety Screening- This Encounter Over the past 2 weeks have you felt down, depressed, or hopeless? Negative Over the past two weeks, have you felt little interest or pleasure in doing things?? Negative Feeling nervous, anxious or on edge 1-Several days Not being able to stop or control worrying 1-Several days Anxiety Pre-Screening Total (If >/= 3 additional questions will be reviewed) 2 Genetic Screening: Partner present: No Patient verbalized knowledge of partner family health history: Yes Do you or your partner have any personal or family history of defects not previously discussed: No Do you have history of a complicated by anomaly, genetic condition, or demise: No Preeclampsia Risk Screening: Screening for prevention of preeclampsia: High risk factors: History of pre-eclampsia, especially when accompanied by an adverse outcome Moderate risk ractors: Obesity (body mass index greater than 30) OB Risk Screening: Completed, no positive findings documented. 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 No past surgical history on file. Current Outpatient Medications Medication Sig Dispense Refill ondansetron orally disintegrating (ZOFRAN ODT) 4 mg disintegrating tablet Take 1 tablet by mouth every 6 hours as needed. 20 tablet 0 No current facility-administered medications for this visit. Allergies As of Date: 10/26/2024 (No Known Allergies) Fully Assessed 04/06/2018 Does patient have penicillin allergy: No REVIEW OF SYSTEMS: GENERAL: Negative for: Fever or Chills HEENT: Negative for: Headache, Impaired Vision, Ringing in Ears, Nosebleeds NECK: Negative for: Swelling, Pain, Stiffness RESPIRATORY: Negative for: Cough, Shortness of breath, Wheezing GASTROINTESTINAL: Negative for: Heartburn, Diarrhea, Blood in stool, Vomiting + nausea, constipation MUSCULOSKELETAL: Negative for: Muscle or joint pain, stiffness, Joint swelling NEUROLOGIC/PSYCHIATRIC: Negative for: Weakness, Paralysis, Numbness, Tingling, Tremor, Depression, Memory los (more content not included)... [facility] 10-25-2024 History of Present illness Narrative [employer] Resource Teacher offered: Patient declines. INITIAL OB ASSESSMENT HPI: Kinsey is a 34 year old White Female here to establish Obstetrical Care. Patient's last menstrual period was 09/01/2024. from OB Dating Form. was planned Complaints: Heart racing and skipping (intermittent, related to anxiety) OB History Gravida2 Para1 Term0 Preterm1 AB1 Living1 SAB0 IAB1 Ectopic0 Multiple0 Live Births1 Previous history: Prior : No History of 4th degree laceration: No History of shoulder dystocia: No History of Hypertensive disorders including pre-eclampsia or gestational hypertension: Hypertension during the 3rd trimester History of gestational diabetes: No Patient's Risk Screening for delivery: Have you had a prior austin between 20w and 36w6d? No How many pregnancies have you had before? 4 Did you have a previous baby with a GBS Infection? No Please select all that apply for any prior : N/A MEDICAL/PSYCHOSOCIAL HISTORY: History of hemorrhage or bleeding concerns: No Thyroid Disease: No History of chronic hypertension: No History of pre-existing diabetes: No No results found for: ABORHD BMI 34.70 kg/(m^2) Last Pap: 2019 History of abnormal pap: No Prior treatment for cervical dysplasia: none. Last HPV: never done History of STDs: N/A Partner History of STDs: None Did you have a partner with Herpes? No Tobacco use: No E-Cigarette/Vaping Use: No Caffeine use: No Drug use: No Alcohol use: No Multivitamin with Folic acid: Yes Would refuse blood transfusion if medically necessary: No Social Needs: How often does this describe you? I don't have enough money to pay my bills: Never Within the past 12 months, have you worried that your food would run out before you had money to buy more? Never In the past 12 months, has lack of reliable transportation kept you from going to medical appointments or work, or from getting things needed for daily living? Never In the past 12 months, have you had any concerns about having a place to live, or about the condition or quality of your housing? Never Would you like more information on any of the following (please check all that apply)? Centering (group care classes); Machine Engineer; Director Maternal Child care Social History: Do you have any history of depression, anxiety, PTSD, or other mood problems? No Do you have a history of abuse or trauma that may impact your experience? No Are you currently employed? No Depression/Anxiety Screening: denies, admits to symptoms of depression. OB Depression and Anxiety Screening- This Encounter Over the past 2 weeks have you felt down, depressed, or hopeless? Negative Over the past two weeks, have you felt little interest or pleasure in doing things? Negative Feeling nervous, anxious or on edge 1-Several days Not being able to stop or control worrying 1-Several days Anxiety Pre-Screening Total (If >/= 3 additional questions will be reviewed) 2 Genetic Screening: Partner present: No Patient verbalized knowledge of partner family health history: Yes Do you or your partner have any personal or family history of defects not previously discussed: No Do you have history of a complicated by anomaly, genetic condition, or demise: No Preeclampsia Risk Screening: Screening for prevention of preeclampsia: High risk factors: History of pre-eclampsia, especially when accompanied by an adverse outcome Moderate risk ractors: Obesity (body mass index greater than 30) OB Risk Screening: Completed, no positive findings documented. 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 No past surgical history on file. Current Outpatient Medications Medication Sig Dispense Refill ondansetron orally disintegrating (ZOFRAN ODT) 4 mg disintegrating tablet Take 1 tablet by mouth every 6 hours as needed. 20 tablet 0 No current facility-administered medications for this visit. Allergies As of Date: 10/26/2024 (No Known Allergies) Fully Assessed 04/06/2018 Does patient have penicillin allergy: No REVIEW OF SYSTEMS: GENERAL: Negative for: Fever or Chills HEENT: Negative for: Headache, Impaired Vision, Ringing in Ears, Nosebleeds NECK: Negative for: Swelling, Pain, Stiffness RESPIRATORY: Negative for: Cough, Shortness of breath, Wheezing GASTROINTESTINAL: Negative for: Heartburn, Diarrhea, Blood in stool, Vomiting + nausea, constipation MUSCULOSKELETAL: Negative for: Muscle or joint pain, stiffness, Joint swelling NEUROLOGIC/PSYCHIATRIC: Negative for: Weakness, Paralysis, Numbness, Tingling, Tremor, Depression, Memory loss + anxiety SKIN: Negative for: Rash, Itching GENITOURINARY: Negative for: vaginal itching, vaginal discharge, hematuria or dysuria SENSITIVE EXAM: The sensitive examination was discussed with the Patient or Patient's Authorized Cpa Tax. As applicable, any other physician, advance practice provider, medical student, or other health professional student that will be observing or involved in the sensitive examination for educational or training purposes was discussed with the Patient or Authorized Cpa Tax. The Patient or Authorized Cpa Tax has agreed to proceed with the sensitive examination. (Sensitive examination includes inspection and/or palpation of the breasts, pelvis, prostate and anorectal regions). PHYSICAL EXAM: BP 114/70 Ht 5' 6 (1.68m) Wt 215 lb (97.5kg) LMP 09/01/2024 BMI 34.72 kg/(m^2). GENERAL: pleasant in no apparent distress DERMATOLOGY: Normal, without lesions, non-icteric, and non-hirsute NECK: Supple, full range of motion, no adenopathy, and thyroid normal CHEST: Normal inspiratory effort BREAST: soft, non-tender, symmetric, no dominant mass, normal nipple-areolar complex, no lymphadenopathy, and no nipple discharge ABDOMEN: soft, non-tender, and no masses NEURO: alert and oriented x3,exam grossly non-focal PELVIS: External genitalia normal without lesions. Perineal body intact. No vaginal or cervical lesions. Cervix closed. Uterus 8 week size. No adnexal masses or tenderness. Clinical Pelvimetry: Pelvimetry clinically assessed as adequate Limited OB ultrasound exam: single intrauterine and positive cardiac activity ASSESSMENT: 34 year old at Unknown wks gestational age PLAN: 1) Patient oriented to practice. Patient given new OB orientation folder. Discussed nutrition, folic acid supplementation, dietary guidelines, exercise, smoking, alcohol, caffeine, and drug use. Discussed gestational weight gain guidelines. Discussed routine OB labs including STD/HIV. Discussed how to access Your guide to a health and the Postal Superintendent. Discussed hemoglobin electrophoresis. Patient: Declines Reviewed midwifery and sports administrator services that are available. 2) Screening: Hemoglobin A1C: ordered Baby Aspirin: The patient has been counseled about the potential benefits of low dose aspirin in and our recommendation that this be offered to all patients, regardless of whether they meet the high risk criteria specified above. She Accepts Aneuploidy Screening: Discussed aneuploidy screening, nuchal translucency/first trimester early anatomy ultrasound and NIPT. The risks/benefits and limitations of NIPT/aneuploidy screening were reviewed including the potential for false negative and false positive results. The availability of genetic counseling was reviewed. Information on aneuploidy screening was provided. The patient chooses to proceed with First trimester early anatomy ultrasound (12-13w6d) Myriad Carrier Screening: Discussed myriad carrier screening. We discussed the availability of professional-society guided carrier screening and reviewed the conditions screened and limitations of screening. The availability of genetic counseling was reviewed. Information on carrier screening was provided. The patient is considering 3) Patient offered option of Virtual Visits. Patient unsure. May consider in future. ACTIVE PROBLEM LIST Encounter for Supervision of High Risk in First Trimester, Antepartum (Hcc) - 10/26/2024 Comment: Care Checklist Vaccines: [] Flu vaccine [] declined [] RSV vaccine 32 0/7 - 36 6/ (Feb - Jul) [] declined [] COVID vaccine [] declined [] TDaP 27-36 [] declined First trimester: [x] Dating US [x] 1st tri labs [x] Pap smear [] Carrier screening - considering [] declined [] NIPT screening - considering [] declined [x] First trimester anatomy scan [] declined [x] universal ASA ordered (start 12w-16w) [] declined [] M Power Consult [] not indicated [] declined Second trimester: [] Anatomy scan [] Mode of Delivery - [] Feeding - [] Pump ordered [] Diabetes screen [] CBC, RPR [] Behavioral Health Screening Third trimester (28-30 weeks): [] Consent [] Contraception [] Landscape Account Manager [] TeamBirth handout Third trimester (36-40 weeks): [] GBS [] Presentation - [] Scheduled [] yes - Hibiclens, pre-op instructions, CBC, T&S ordered [] no [] H&P [] Preferences works History of Delivery - 10/26/2024 Comment: October 26, 2024 PPROM at 36w2d History of Premature Rupture of Membranes - 10/26/2024 Comment: 2019 36w2d History of Induced - 10/26/2024 Comment: , 2020 and 2019 History of Gestational Hypertension - 10/26/2024 Comment: October 26, 20242019 - mother just had stroke and COVID. Baseline labs ordered. I recommend 162 mg of ASA nightly starting at 12 weeks. Fatemeh Holt APRN.CNP Anxiety Disorder Affecting , Antepartum ([facility]) - 10/26/2024 Comment: October 26, 2024 Mental health resources provided. Declines medication at this time. Considering counseling. To update throughout . Fatemeh Holt APRN.CNP Obesity Affecting in First Trimester ([facility]) - 10/26/2024 Comment: October 26, 2024 Pre BMI 30. 25 lb weight gain at 7 weeks. Reviewed weight gain recommendations. Fatemeh Holt APRN.CNP Constipation During in First Trimester ([facility]) - 10/26/2024 Comment: October 26, 2024 Reviewed Colace, Miralax PRN Fatemeh Holt APRN.CNP Nausea and Vomiting During ([facility]) - 10/26/2024 Comment: 10/26/24 Vitamin B6 doses reviewed. To notify if prescription is needed. Fatemeh Holt APRN.CNP Follow up in 4 weeks or sooner prn. Plan for NT scan between 12w0d and 13w6d gestation. Fatemeh Holt APRN.PRODUCE ASSISTANT documented in this encounter [facility] 10-25-2024 Instructions Fatemeh Holt APRN.CNP - 10/25/2024 3:00 PM EDT Images from the original note were not included. Please select the following link to access the [facility] Your Guide to a Healthy . [email or web address] Please select the following link to access the [facility] Your Guide to a Healthy . [email or web address] Psychotherapy Services at [facility] Call Behavioral Health Access Line at [phone] to schedule Individual psychotherapy In-person or virtual Wait time for first evaluation may be 12 or more weeks. Wait list spots may be available. Due to the high volume of patients this option is recommended if you are looking for short term acute symptom coping strategies. 7-023-0-HHXZ5RQVM - [place] Maternal Mental Health Hotline If you are in suicidal crisis, please call or text 1-360-159-TALK ( ) or visit the National Suicide Prevention Lifeline website. mchb.[facility].gov If you are in crisis, call 911 or go to your nearest Emergency Department Here are some links for wonderful Providers here in the community and surrounding areas. Do not hesitate to contact their offices, many are offering virtual visits during this time. Psychotherapy Services outside of [facility] Support International Online Provider Directory https://New Planet Technologies.Rage Frameworks/ - can assist in finding providers in your area that might be more extensive then the list below. Counseling Center - [place], [place] [address] [place], [facility]691 [facility] [address] [place] [address] [facility] [address] [place] [address] [facility] [address] [place], [place] [id number] Kathrin Gr MD [address] [place] [address] [facility] [address] [facility], [address] [place] [address] [facility] [address] [place] [address] [facility] Counseling Services [place] / [place] [phone]/ [phone] Aniya Leavitt [address] [facility] [phone] Aves of Counseling and Mediation [place] / [place] [phone] [facility] [address] [place] [address]/ [facility] [phone] GLORIA Whiteside, CASPER Bump and Beyond Family Therapy Workshops, telehealth and at home visits. [phone] [facility] counseling bryan 20 locations [place], [place], [place], [place], [place], [place], [place], [facility], [place], [place], [place], [place], [place], [place], [facility], [place], [place] ,[facility], [place], [place],[facility], [facility] [place], [place], [facility], [facility], [place] www.[facility] [phone] Psychotherapy resources outside of [facility] are listed below [facility] Psychotherapy Web: https://www.Buzzoole/ Support International Online Provider Directory https://Zevia/ [facility] https://Convio/ Arena Pharmaceuticals for Behavioral Health and Wellness Web: https://BucketFeet/ Divitel for Effective Living Web: https://MicroMed Cardiovascularliving.Rage Frameworks/ LifeStance Web: https://Precise Path Robotics.Rage Frameworks/location/s keli/arizona/ Signature [facility] Web: https://www.DineGasmcibola general [facility].or / [facility] Web: https://Cocodot.org/ Recovery Resources Mental health and substance abuse help Web: https://www.Migo.mes.inSilica & RESOURCES Support International Direct peer support and connection to professional resources Non-Emergency Helpline Phone: / Text: [phone] Web: https://www..net/ Online Provider Directory: https://Zevia/ Online Support Meetings: https://www..net/get-he lp/ukc-isdnfd-kgadhvy-meetings/ SONALI Baby and Machine Engineer Services Web: https://www.Gateshop/ MotherToBaby Expert information on medication use during and Text: [phone] Web: https://motherMobee.org/ NATIONAL REGISTRY FOR PSYCHIATRIC MEDICATIONS Currently studying the safety of antidepressants, ADHD medications and atypical antipsychotics taken during TO PARTICIPATE CALL TOLL-FREE: Web: https://womenentalhealth.org/re search/pregnancyregistry/ Support Groups: [facility]- Follow on facebook Baby Bistro support group led by [facility] department [facility] Mamas - Support Group [facility].org The POEM support group [phone] Www.poGlad to Have Youonline.org Follow on facebook - MARIKA barrios Online support meetings PSI https://www..net/get-he lp/xts-rdefqy-kbubvok-meetings/ [facility] mommy and me virtual support group 11:30-1pm Support for mothers and new babies and toddlers [place] childbirth education: Childbirth @[facility].org or call [phone] CRISIS: CRISIS HOTLINE [phone], 911 or go to the nearest . [facility] [phone] / [facility] [phone] https://www.[facility].org Crisis text line text the word HOME to [phone] [facility] Counseling [address] hilda [address] [facility] [address] www.MoneyExpert Idania Pineda clinical counseling [address] [address] www.IRL ConnectriAgent Ace.Rage Frameworks [phone] Holding space psychotherapy Shaila Mike DATA MODELING SPECIALIST SKIN FORMER-S [address] [facility] www.Aviasales [phone]/ Karen [phone] They all offer virtual. All work with trauma Support groups Online support meetings PSI https://www..net/get-he lp/enl-bexovb-effoqrv-meetings/ Here are the support groups they offer: Support of parents of 1 to 4 years old children POEM ( Outreach and Encouragement for Moms) offers free support for mothers experiencing depression, anxiety, and other mood and anxiety disorders. Masks are recommended but not required. No pre-registration required. Babies in arms welcome. meetings now take place on the and Thursday of each month Location: [facility] [address] [place] [address] Room 122 (library room) 7-8:00 p.m. When you enter the christian parking lot off of [address] the entrance door closest to our meeting room is on the front of the building toward the right. For those who are more comfortable with a virtual platform, POEM offers online support group options several days of the week. To register for an online group or to find out more about PO, website at: https://aohio.org/get-help/wmchealthjfxn-dekdto-eqwths/pomg-services/ offer a confidential helpline: private Facebook group is called MARIKA Barrios Here are the groups they offer: Traumatic childbirth resources: Http://pattch.org/ https://www.ImcompanyjaquelineUpper Krust Pizza.Rage Frameworks/ Name Location (s) Phone # (s) Services Website [facility] Psychotherapy [address] [place], [place] - [phone]; [address] [phone] In-Person GROUPS INDIVIDUAL THERAPY MATERNAL-INFANT MENTAL HEALTH MEDICATION MANAGEMENT PLAY AND ART THERAPY TELETHERAPY https://www.Buzzoole/s ervices/ Cornerslovee of Belgica BERNARD? [address] [place], [place] [address] ? [address], [address] [place], [place] [id number] ? WU [address] [place] [address]? Grief Support Groups Individual Grief Counseling Spiritual Care Memorial Events https://talat.[facility].org/grief-services [facility] [address] [place] [address]; ; Email: brittni@PSC Info Group Women's Mental Health; Couples Counseling; Trauma (EMDR); Stress Management; Mood and Anxiety Related Disorders- and much more https://www.Wisembly/ LifeStance Numerous as they have contract providers: access website to find specific providers near you Counseling including CBT and EMDR as well as many more modalities; Medication Management; Telehealth and In-Person https://TravelAI/ Summify [facility]al [facility] [address] [place], [place] [address]; [phone] Personal, Family and Group Therapy; Psychological Testing and Diagnosis; Medication Management; Life and Career Coaching; Psychoanalysis; Literacy Testing; Yoga and Meditation https://BucketFeet/ drchrono [facility] [address] [facility] [address], [place] [address] [facility] 448 ; [facility], [address] [place] [address]; Office # for both sites: Individual and Couples Counseling https://www.Policard.Rage Frameworks/ paymentinsurance.html OCD & Anxiety [facility] [address] [facility], [address], [place] [address]; Specialize in Cognitive-Behavioral Therapy (CBT) for the treatment of anxiety disorders across the lifespan. TELEHEALTH ONLY. https://ocdandanxietycenteroIbexis Technologies.Rage Frameworks/faqs [facility] [address] [facility] [address] [place], [address] [place] [address] [facility] [place] [place], [address] [place] [address] [facility] [place], [address] [place] [address] [address] [place], [address] [address], [phone] [place] [address] [facility] [place], [address] [place] [address], [address] Transportation Services To minimize patient barriers, [facility] provides transportation services to patients who qualify. If you are unable to get to your appointment at any of our facilities, please let us know. Need help now? Stop by one of our walk-in clinics to establish behavioral health care. Counseling Indvidual, Group, Couples and Family Counseling and EMDR. Medication Management Case Management benefits applications housing assistance Substance abuse treatment Medication assisted treatment https://www.[facility].or g/mental-health/ [facility] OFFICE AT [facility] [address] [place] [address] [facility] [address] [place] [address] [facility] OFFICE [address] [place] [address] [facility] OFFICE (at [facility]) [address] [place] [address] [facility]O [facility] EXCHANGE PROGRAM & HIV SCREENING [address] [place] [address] [facility] [facility] EXCHANGE PROGRAM [address] [place] [address] Behavioral Health Urgent Care: [facility] Sites Counseling Indvidual and Group Medication Management Case Management benefits applications housing assistance Substance abuse treatment Medication assisted treatment Employment Services/ Job Training https://theHelios Digital Learningidio.org/ Recovery Resources [address] [place], [place] [address]: P: [phone] [address] [facility], [address], [place], [place] [address] P: [phone] Our services include: Addiction Mental Health Treatment Assessment Psychiatry Medical Care Employment Housing Drug and Alcohol Prevention HIV/AIDS Prevention https://www.recres.org/ [facility] [place] [address] [place] [address] [place], [place] [address] [place] [address] [place] [address] [place] [address] [facility] [address] [place] [address] [place] [address] [place] [address] TMS Therapy/ Counseling Psychocological Testing for ADHD Medication Management In-Person/ Telemedicine https://www.CRV.com/kim ents-depression Memory & Psychological services [address], [place] [address] Neuropsychological Testing For ADHD https://www.memoryandpsych.com/ [facility] - Main Office [address] 24[place] [address] [address] Providing migy-hi-bqmw and telehealth services. Adult Case Management Community Education and Prevention Employment Outpatient Treatment - Counseling & Psychotherapy Psychiatric Services http://www.ccc.org/ [facility] [place] [address] [place] [address] [facility]) [address] [place] [address] Virtual Appointments! Now offering safe and convenient virtual client appointments to anyone in [place]! Individual Therapy Couples/Relationship Therapy Trauma/EMDR Therapy Art Therapy Play Therapy Chute Boss Support: Parenting Skills, Parent Child Interaction Therapy, Parent Interaction Therapy Meditation Dietitian/Housing Relocation Services Group Therapy Yoga https://www.[address] + Company/ Janis Mendiola [phone] Private Practice: Telehealth Only Specializes in EMDR for Trauma None MORNING SICKNESS IN by Jolene Nava M.D. for Emprego Ligado As you may already know, morning sickness can often be more appropriately called evening sickness or aseur-cjewzg-tm-the-day sickness. While there are the isabela few, most women (50-90%) experience some degree of nausea, some have vomiting, and a few develop a severe form of vomiting during called hyperemesis gravidarum. What causes the nausea and vomiting of ? We can't explain why some people feel fine and others are green for months. Even the same woman may feel vastly different in each . There is some relationship between nausea and the level of the hormone hCG. In twin pregnancies, and in other situations where the hCG is greater than expected, nausea and vomiting tend to be worse. In a destined for miscarriage, hCG levels tend to be low, and nausea is often less severe. This being said, a lack of nausea doesn't guarantee that the is destined for miscarriage. The fact that nausea and vomiting are often signs of a healthy can offer a silver lining in the dark cloud of miserable nausea. How long will the nausea last? Fortunately, for most women, nausea and vomiting are a first trimester event, peaking at week 9-10 and waning by week 14-16. When you are feeling bad the weeks can go by slowly but most moms do feel tremendously better by the middle of the . Whether morning sickness is a brief experience or lasts through most of the , there are treatments that can make the weeks or months more tolerable. What can you do about it? Diet: See what works for you. Try eating bland dry foods, and avoid fatty or spicy foods. It is okay to eat a less than perfectly balanced diet in the first trimester. Have your liquids separately from dry foods. Try sports drinks, water, clear juices, Naga-aid, or non-caffeinated tea. Avoid carbonated beverages that fill up your stomach. Try eating lots of little meals. If you tend to feel sick when you first wake up, leave crackers next to the bed for a quick snack before rising. Keeping healthy snacks with you all day to nibble when you feel queasy can sometimes even prevent nausea from starting. vitamins and nausea: Pre- vitamins can sometimes worsen nausea in . While folate is necessary, especially early in the , it comes as a smaller pill that many people find more tolerable than the complete vitamin pill. Ask your practitioner if it is okay to temporarily replace vitamins and iron with just a folate pill if you find a significant worsening in the level of your nausea from the vitamins. Alternative therapies: Acupressure may be used to treat nausea in , and is not known to have any risks for the fetus. Wristbands (marketed for seasickness) that put pressure on an acupressure point at the wrist are often available at drugstores or Pictorious stores. Kyle root is used for nausea in many traditional cultures. Some women take fresh grated kyle or kyle tablets. It is possible that the pill form contains other ingredients or contaminants, so you may want to try fresh kyle first. Medications: Emetrol is the only nausea medication approved for use in . It is available over the counter and is soothing to the stomach. A prescription medication called Bendectin was available in the -1979's and was shown to be safe in , but the company stopped marketing it in the [place] due to the costs of liability coverage. Bendectin contained 10 milligrams of vitamin B6 and 10 milligrams of Doxylamine. Two tablets were given at bedtime and a total of up to 4 tablets could be used in a 24-hour period. Interestingly, Unisom , which contains a higher dose (25 mg.) of the same medication, Doxylamine, is currently marketed as an zfng-iib-wbtlbca sleeping pill. Ask your practitioner if creating a vitamin B6/Doxylamine combination with xfkf-mee-xgrnkez medications would be safe for you. Prescription medications like Compazine and Phenergan can be used if the benefits outweigh possible risks, but these have not been clearly shown to be safe in . Zofran , an expensive anti-nausea medication often used to treat nausea from chemotherapy, can also be used. Can I throw up so much it harms the baby? The act of vomiting cannot hurt your fetus, which is protected inside the uterus. If you get dehydrated or develop a metabolic imbalance, this can be unhealthy. As long as you can keep down liquids, you and your baby will generally do all right. Eat when you feel able. If you are unable to keep anything down, or if you notice potential signs of dehydration such as lightheadedness, or concentrated and/or infrequent urination, call your practitioner. Some women need brief hospital admission for intravenous fluids and anti-nausea medications if their condition becomes severe. This severe form of nausea and vomiting is called Hyperemesis Gravidarum. As with many symptoms of , remind yourself that this, too, shall pass, and you'll have a wonderful baby to show for it! TREATMENT OPTIONS, SHORT VERSION: Frequent small meals Hydrate throughout day Sea-Bands wrist pressure point applicators Kyle root (powdered, in capsules) 250mg four times a day Vitamin B6 25 mg tablet three times a day Also may be taken with half a tablet of Unisom three times a day (Doxylamine 12.5 mg) If severe (weight loss, dehydration), call us and come in for IV hydration and possible medication in the form of injections. Prescription medications such as Phenergan, Compazine, Reglan documented in this encounter [facility] 10-14-2022 Discharge summary Note Date/Time October 14, 2022 12:18pm [facility] Medical Records Department [address] [place] [address] Emergency Department Summary 10/14/22 MR#: [id number] Acct: [id number] Name: KINSEY SOTELO Rep #:[id number] : 1990 32 From: Hermilo Christina DO PCP: Care Physician,No Primary Status :REG ER Location: ED HPI History of Present Illness Chief Complaint: Nausea/Vomiting Detail of Chief Complaint: Nausea and vomiting Informant: patient Narrative Narrative: Patient presents with nausea and vomiting that started last evening. Patient has vomited countless times. She has not thrown up about every 10 minutes. Shedenies any diarrhea. She describes some upper abdominal discomfort. Patient currently on her menstrual period. She denies urinary symptoms. She denies sick contacts or eating any undercooked or suspicious foods. Prior similar symptoms: No PFSH PFSH Medical History no medical history Home Medications vits,calcium no.78-iron fumarate-folic acid 29 mg-1 mg tablet 1 tab PO DAILY 02/23/20 [History Last Taken 02/22/20 13:30] ondansetron 4 mg disintegrating tablet 4 mg PO Q8H PRN PRN Nausea #10 tabs 10/14/22 [Rx Last Taken Unknown] Allergy/AdvReac Type Severity Reaction Status Date / Time No Known Allergies Allergy Verified 10/14/22 11:46 Family History no significant family his Surgical History (Updated 02/23/20 @ 06:[address] Leti Gr MD) H/O dilation and curettage History of tonsillectomy Surgical History no surgical history Social History Smoking Status: Former smoker ROS ROS ED Review of Systems ROS Unobtainable: other Constitutional Constitutional ED: Reports lethargy; Denies chills, fever(s), sweats or weight loss Eyes Eyes: Denies blurry vision, change in vision or diplopia ENT ENT ED: Denies rhinorrhea or sore throat Cardiovascular Cardiovascular: Denies chest pain, orthopnea or racing heartbeat Respiratory/Chest Respiratory/Chest: Reports dyspnea and dyspnea on exertion; Denies cough, orthopnea or sputum Gastrointestinal Gastrointestinal: Reports abdominal pain, nausea and vomiting; Denies diarrhea Genitourinary Genitourinary ED: Denies dysuria, hematuria or urinary frequency Musculoskeletal Musculoskeletal: Denies arthralgias, back pain, myalgias or neck pain Integumentary Denies abscess, Abrasions or rash Neurologic Neurologic: Denies headache(s) or weakness Psychiatric Psychiatric: Denies anxiety, depression or suicidal thoughts Endocrine Endocrinology: Denies polydipsia, polyphagia or polyuria Hematologic/Lymphatic Hematologic/Lymphatic: Denies easy bleeding, easy bruising or lymphadenopathy Allergic/Immunologic Allergic/Immunologic ED: Denies mouth swelling, tongue swelling or urticaria EXAM Physical Exam Const Vital Signs: 10/14/22 11:45 Temperature 98 F Temperature Source Temporal Pulse Rate 115 H Respiratory Rate 16 Blood Pressure 134/94 H Blood Pressure Mean 107 Pulse Ox 97 Oxygen Delivery Method Room Air Positive well nourished and well developed General Appearance ED: well developed and NAD HEENT Reports TM's clear and moist mucous membranes normocephalic and atraumatic; Negative for trauma or tenderness Tympanic Membrane ED: Yes TM's clear Eyes PERRL and EOMs intact bilaterally General Eye ED: Negative for pale conjunctiva or scleral icterus Neck no lymphadenopathy, supple and no JVD General: Negative for tenderness Chest Wall inspection of chest normal and palpation of chest normal Chest: Negative for tenderness Resp normal respiratory effort and clear to auscultation bilaterally Effort and Inspection: Negative for respiratory distress or pain with movement Auscultation: Negative for rhonchi, wheezes or diminished lung sounds Cardio regular rate, regular rhythm, S1 normal heart sound, S2 normal heart sound and no murmurs Peripheral Pulses: pulses 2+ throughout GI normal to inspection, nondistended, normoactive bowel sounds, soft to palpation,non-distended and no masses GI Narrative: Tenderness to palpation over the epigastric region and left upper quadrant. Mild guarding. There is no rebound, rigidity, or. Signs. No mass palpated. Back/Spine no CVA tenderness and no thoracic nor lumbar tenderness Extremity normal to inspection General Extremety ED: Negative for edema General Extremity: Negative for edema Neuro oriented x3, CN's II-XII intact bilaterally, no sensory deficits noted and gait normal Sensorium / Orientation: awake, alert, oriented to person, oriented to place andoriented to time Motor Exam: strength 5/5 throughout and strength abnormal Psych mental status grossly normal Skin no rashes or lesions noted and no wounds MDM MDM MDM Narrative Medical decision making narrative: Patient with vomiting that started last evening and then subsequently developed some upper abdominal discomfort. She had a family member with similar illness but had not been around a family member but was around a family member's kids. IV line established on arrival and was given liter normal saline fluid bolus. Patient was given Zofran 4 mg IV and her nausea improved dramatically. She had no further vomiting. She did complain of some ongoing nausea and I gave her second dose of Zofran. I gave her a GI cocktail. Her abdominal pain improved significantly with GI cocktail. On repeat exam at 1450 she has a benign abdomenthat is soft with just minimal discomfort in the epigastric region. No rebound or rigidity. Clinically I suspect viral etiology to her symptoms. She is not having urinary symptoms and she did not give a urine does not want to wait to get 1. She would like to go home and rest. Patient will be given a prescription for Zofran. Patient advised to return if worsening pain, persistent vomiting, fever, or condition should worsen anyway. Lab Data Attestation: I reviewed the patient's lab results. Labs: Laboratory Results - last 24 hr 10/14/22 10/14/22 10/14/22 12:40 12:40 12:40 WBC 14.9 H RBC 5.23 Hgb 16.4 H Hct 48.3 H MCV 92.4 MCH 31.4 MCHC 34.0 RDW Std Deviation 46.3 H RDW Coeff of Vicky 13.6 Plt Count 392 MPV 9.8 Immature Gran % (Auto) 0.500 Neut % (Auto) 90.5 H Lymph % (Auto) 6.4 L Hernando % (Auto) 2.3 Eos % (Auto) 0.0 Baso % (Auto) 0.3 Absolute Neuts (auto) 13.5 H Absolute Lymphs (auto) 0.95 Nucleated RBC % 0 Sodium 140 Potassium 4.0 Chloride 107 Carbon Dioxide 28.0 Anion Gap 5 BUN 14 Creatinine 0.92 Estim Creat Clear Calc 83.70 Est GFR (MDRD) Af Amer 91 Est GFR (MDRD) Non-Af 75 BUN/Creatinine Ratio 15.2 Glucose 110 H Calcium 9.9 Total Bilirubin 0.20 AST 17 ALT 24 Alkaline Phosphatase 62 Total Protein 8.9 H Albumin 4.7 Globulin 4.2 Albumin/Globulin Ratio 1.1 Lipase 58 Serum , Qual NEGATIVE Discharge Plan Triage Chief Complaint: Nausea/Vomiting ED Provider: Hermilo Christina Dx/Rx/DC Orders Clinical Impression: Vomiting, Abdominal pain Instructions: ED Abdominal Pain Unkn Cause Fem, ED Vomiting (Adult) Prescriptions: New ondansetron [ondansetron] 4 mg tablet,disintegrating 4 mg PO Q8H PRN PRN (Reason: Nausea) Qty: 10 0RF No Action vit,[id number] 1 TABLET tablet 1 tab PO DAILY Primary Care Provider: Care Physician,No Primary Referrals: Giovany Zuniga MD [Med Staff - Active Staff] - 3-5 Days Care Physician,No Primary [Primary Care Provider] - Disposition Disposition: Home, Self Care What to do if you have Problems For any increased pain, shortness of breath, bleeding, nausea or vomiting, chestpain, or any unexpected problems, contact your Primary Care Provider. Call [facility] ([phone]) or report to the closest Emergency Room. Call 911 if necessary. 10/14/22 1513 <Electronically signed by Hermilo Christina DO> Cosigner Signature (if applicable): CC: No Primary Care Physician ~ Signed [facility] Work Phone: Evaluation noteNo assessment information available [facility] Work Phone: Evaluation note* Diagnosis Encounter for supervision of high risk in first trimester, antepartum (HCC)- Primary 7 weeks gestation of (HCC) state, incidental with uncertain dates in first trimester (HCC) Screen for STD (sexually transmitted disease) Screening examination for venereal disease Screening for cervical cancer Screening for malignant neoplasm of the cervix Encounter for screening for human papillomavirus (HPV) Special screening examination for human papillomavirus (HPV) History of delivery History of induced Personal history of other genital system and obstetric disorders History of gestational hypertension Obesity affecting in first trimester, unspecified obesity type ([facility]) Anxiety disorder affecting , antepartum ([facility]) Nausea and vomiting during (HCC) Constipation during in first trimester ([facility]) History of premature rupture of membranes [facility] Diagnosis Encounter for supervision of high risk in first trimester, antepartum ([facility])- Primary 12 weeks gestation of ([facility]) state, incidental Obesity affecting in first trimester, unspecified obesity type ([facility]) Anxiety disorder affecting , antepartum ([facility]) History of gestational hypertension Low TSH level Nonspecific abnormal results of thyroid function study [facility] Diagnosis Encounter for screening for malformation using ultrasound ([facility])- Primary 12 weeks gestation of ([facility]) state, incidental [facility] Diagnosis 12 weeks gestation of ([facility])- Primary state, incidental Low TSH level Nonspecific abnormal results of thyroid function study [facility] Diagnosis Low TSH level- Primary Nonspecific abnormal results of thyroid function study 9 weeks gestation of ([facility]) state, incidental [facility] Diagnosis Encounter for anatomic survey ([facility])- Primary Encounter for anatomic survey 18 weeks gestation of ([facility]) state, incidental Obesity affecting in second trimester, unspecified obesity type (HCC) [facility] Diagnosis Encounter for supervision of high risk in second trimester, antepartum ([facility])- Primary 23 weeks gestation of ([facility]) state, incidental Low TSH level Nonspecific abnormal results of thyroid function study Obesity affecting in first trimester, unspecified obesity type ([facility]) History of delivery Anxiety disorder affecting , antepartum ([facility]) History of gestational hypertension Screening for diabetes mellitus Supervision of high risk in second trimester ([facility]) Unspecified high-risk documented in this encounter [facility] for visit Narrative* Diagnostic Procedure Only (Routine) - Closed Specialty Diagnoses / Procedures Referred By Contac t Referred To Contact [facility] Diagnoses with uncertain dates in first trimester (HCC) Procedures OBSTETRIC ULTRASOUND WHI US PREG UTERUS AFTER 1ST TRIMEST GESTATION Fatemeh Holt APRN.PRODUCE ASSISTANT [address] [place] [address] Phone: tel: fax: [facility] [address] [place] [address] Referral ID Status Reason Start Date Expiration Date V isits Requested Visits Authorized [id number] Closed Auto-Generate d Referral 10/26/2024 10/26/2025 1 1 [facility] Summary Purpose Family History No Family History Records FoundNo Family History Records FoundNo Family History Records FoundNo Family History Records FoundNo Family History Records FoundNo Family History Records Found Advance Directives No Advanced Directives Records Found Advance Directive Response Recorded Date/ Time Living Will No October 14, 2022 12:04pm Power of School Speech Language Pathologist No October 14 12:04pm Chief Complaint and Reason for Visit Chief Complaint N/V Additional Source Comments INFORMATION SOURCE (unrecogn ized section and content) DATE CREATED AUTHOR 05/09/2018 [facility] DATE CREATED AUTHOR AUTHOR'S ORGANIZ ATION 07/25/2019 [employer] DATE CREATED AUTHOR AUTHOR'S ORGANIZ ATION 07/27/2019 [facility] DATE CREATED AUTHOR AUTHOR'S ORGANIZ ATION 02/13/2020 [facility] DATE CREATED AUTHOR AUTHOR'S ORGANIZ ATION 10/27/2024 [facility] DATE CREATED AUTHOR AUTHOR'S ORGANIZ ATION 04/28/2025 [facility] Care Teams (unrecognized sec tion and content) Team Status: Active Member Role Status Dates No Primary Care Physician Primary Care Provider Active Team Status: Inactive Member Role Status Dates No Primary Care Physician Primary Care Provider Active Dr. Hermilo Christina , DO Emergency Provider Active Goals (unrecognized section and content) Goals may be documented in a n alternate section Source Comments (unrecognize d section and content) In the event this informatio n is protected by the Federal Confidentiality of Alcohol and Drug Abuse Patient Records regulations: The Federal rules restrict any use of the information to criminally investigate or prosecute any alcohol or drug abuse patient.[facility] the event this information is protected by the Federal Confidentiality of Alcohol and Drug Abuse Patient Records regulations: The Federal rules restrict any use of the information to criminally investigate or prosecute any alcohol or drug abuse patient.[facility] the event this information is protected by the Federal Confidentiality of Alcohol and Drug Abuse Patient Records regulations: The Federal rules restrict any use of the information to criminally investigate or prosecute any alcohol or drug abuse patient.[facility] the event this information is protected by the Federal Confidentiality of Alcohol and Drug Abuse Patient Records regulations: The Federal rules restrict any use of the information to criminally investigate or prosecute any alcohol or drug abuse patient.[facility] the event this information is protected by the Federal Confidentiality of Alcohol and Drug Abuse Patient Records regulations: The Federal rules restrict any use of the information to criminally investigate or prosecute any alcohol or drug abuse patient.[facility] the event this information is protected by the Federal Confidentiality of Alcohol and Drug Abuse Patient Records regulations: The Federal rules restrict any use of the information to criminally investigate or prosecute any alcohol or drug abuse patient.[facility] the event this information is protected by the Federal Confidentiality of Alcohol and Drug Abuse Patient Records regulations: The Federal rules restrict any use of the information to criminally investigate or prosecute any alcohol or drug abuse patient.[facility] Reason for Visit (unrecogniz ed section and content) Reason Comments Initial OB Visit Reason Comments US Specialty Diagnoses / Procedures Referred By Contac t Referred To Contact [facility] Diagnoses with uncertain dates in first trimester (HCC) Procedures OBSTETRIC ULTRASOUND WHI US PREG UTERUS AFTER 1ST TRIMEST GESTATION Fatemeh Holt, CAROLEE.PRODUCE ASSISTANT [address] [place] [address] Phone: tel: fax: [facility] [address] [place] [address] Referral ID Status Reason Start Date Expiration Date V isits Requested Visits Authorized [id number] Closed Auto-Generate d Referral 10/26/2024 10/26/2025 1 1 Reason Onset Date Comments Thyroid 11/02/2024 Reason Onset Date Comments Care 02/09/2025 FOR RECORDS PERTAINING TO PATIENTS WHO ARE OR HAVE BEEN ENROLLED IN A CHEMICAL DEPENDENCY/SUBSTANCEABUSE PROGRAM, SOME INFORMATION MAY BE OMITTED. This clinical summary was aggregated from multiple sources. Caution should be exercised in using it in the provision of clinical care. This summary normalizes information from multiple sources, and as a consequence, information in this document may materially change the coding, format and clinical context of patient data. In addition, data may be omitted in some cases. CLINICAL DECISIONS SHOULD BE BASED ON THE PRIMARY CLINICAL RECORDS. [facility] [employer] [facility]. provides no warranty or guarantee of the accuracy or completeness of information in this document.
--- OUTSIDE RECORDS SUMMARY | 2025-05-19 07:23 | XMS RPT_ITS | CCD ---
Author Organization [facility] Team Providers Care Residential Plumber Name Role Phone Unavailable Primary Care Provider [...] 1 tablet by mouth once daily. Active Vit,Rbsz94-Kpmo-Tobqt (1 source) Start: 02-23-2020 take 1 tablet by mouth once daily Vit,Myqk49-Ltal-Prxnk Active 1 TABLET PO DAILY February 23, [...] of high risk in first trimester, antepartum ([facility])] Onset: 11-28-2024 Episodic Other female genital disorders (1 source) Personal history of pre-term labor; Translations: [History of delivery] Onset: 10-26-2024 Episodic Other gastrointestinal disorders (1 source) Constipation, unspecified; Translations: [Constipation during in first trimester ([facility])] Onset: 10-26-2024 Episodic Other and delivery including [...] of ; Translations: [18 weeks gestation of ([facility])] Onset: 01-09-2025 Episodic Residual codes; unclassified (1 source) 12 weeks gestation of ; Translations: [12 weeks gestation of ([facility])] Onset: 11-28-2024 Episodic Residual codes; unclassified (3 sources) Personal history of other complications of , childbirth and the puerperium; Translations: [History of gestational hypertension] Onset: 10-26-2024 Episodic Residual codes; unclassified (1 source) Less than 8 weeks gestation of ; Translations: [7 weeks gestation of ([facility])] Onset: 10-26-2024 Episodic Residual codes; unclassified (1 source) Other specified postprocedural states; Translations: [History of induced ] Onset: 10-26-2024 Episodic Results Test Name Value Interpretation Reference Range Facility CBC W Auto Differential pane l (Bld)on 03-13-2025 Basophils (Bld) [#/Vol] 0.04 10*3/uL Normal <0.[address] [facility] Comment on above: Order Comment: Speci men Type: BLOOD SPECIMEN Ordering Facility: [facility] Address: [address] [place] [address] Performed By: #### 5 7021-8 #### [facility] CLIA [id number] [address] [place] [address] [place] Basophils/100 WBC (Bld) 0.3 % Normal [facility] Comment on above: Order Comment: Speci men Type: BLOOD SPECIMEN Ordering Facility: [facility] Address: [address] [place] [address] Performed By: #### 5 7021-8 #### [facility] CLIA [id number] [address] [place] [address] [place] Differential cell count method Nom (Bld) Auto Normal [facility] Comment on above: Order Comment: Speci men Type: BLOOD SPECIMEN Ordering Facility: [facility] Address: [address] [place] [address] Performed By: #### 5 7021-8 #### [facility] CLIA [id number] [address] [place] [address] [place] Eosinophils (Bld) [#/Vol] 0.27 10*3/uL Normal <0.[address] [facility] Comment on above: Order Comment: Speci men Type: BLOOD SPECIMEN Ordering Facility: [facility] Address: [address] [place] [address] Performed By: #### 5 7021-8 #### [facility] CLIA [id number] [address] [place] [address] [place] Eosinophils/100 WBC (Bld) 1.9 % Normal [facility] Comment on above: Order Comment: Speci men Type: BLOOD SPECIMEN Ordering Facility: [facility] Address: [address] [place] [address] Performed By: #### 5 7021-8 #### [facility] CLIA [id number] [address] [place] [address] [place] Erythrocyte distribution width (RBC) [Ratio] 14.5 % Normal 11.5-15.[address] [facility] Comment on above: Order Comment: Speci men Type: BLOOD SPECIMEN Ordering Facility: [facility] Address: [address] [place] [address] Performed By: #### 5 7021-8 #### [facility] CLIA [id number] [address] [place] [address] [place] Hematocrit (Bld) [Volume fraction] 35.1 % Low 36.0-46.[address] [facility] Comment on above: Order Comment: Speci men Type: BLOOD SPECIMEN Ordering Facility: [facility] Address: [address] [place] [address] Performed By: #### 5 7021-8 #### [id number] [address] [place] [address] [place] Hemoglobin (Bld) [Mass/Vol] 12.2 g/dL Normal 11.5-15.[address] [facility] Comment on above: Order Comment: Speci men Type: BLOOD SPECIMEN Ordering Facility: [facility] Address: [address] [place] [address] Performed By: #### 5 7021-8 #### [facility] [id number] [address] [place] [address] [place] Immature granulocytes (Bld) [#/Vol] 0.17 10*3/uL High <0.[address] [facility] Comment on above: Order Comment: Speci men Type: BLOOD SPECIMEN Ordering Facility: [facility] Address: [address] [place] [address] Performed By: #### 5 7021-8 #### [facility] [id number] [address] [place] [address] [place] Immature granulocytes/100 WBC (Bld) 1.2 % Normal [facility] Comment on above: Order Comment: Speci men Type: BLOOD SPECIMEN Ordering Facility: [facility] Address: [address] [place] [address] Performed By: #### 5 7021-8 #### [facility] CLIA [id number] [address] [place] [address] [place] Lymphocytes (Bld) [#/Vol] 1.71 10*3/uL Normal 1.00-4.[address] [facility] Comment on above: Order Comment: Speci men Type: BLOOD SPECIMEN Ordering Facility: [facility] Address: [address] [place] [address] Performed By: #### 5 7021-8 #### [facility] CLIA [id number] [address] [place] [address] [place] Lymphocytes/100 WBC (Bld) 11.8 % Normal [facility] Comment on above: Order Comment: Speci men Type: BLOOD SPECIMEN Ordering Facility: [facility] Address: [address] [place] [address] Performed By: #### 5 7021-8 #### [facility] CLIA [id number] [address] [place] [address] [place] MCH (RBC) [Entitic mass] 30.5 pg Normal 26.0-34.[address] [facility] Comment on above: Order Comment: Speci men Type: BLOOD SPECIMEN Ordering Facility: [facility] Address: [address] [place] [address] Performed By: #### 5 7021-8 #### [facility] CLIA [id number] [address] [place] [address] [place] MCHC (RBC) [Mass/Vol] 34.8 g/dL Normal 30.5-36.[address] [facility] Comment on above: Order Comment: Speci men Type: BLOOD SPECIMEN Ordering Facility: [facility] Address: [address] [place] [address] Performed By: #### 5 7021-8 #### [facility] CLIA [id number] [address] [place] [address] [place] MCV (RBC) [Entitic vol] 87.8 fL Normal 80.0-100.[address] [facility] Comment on above: Order Comment: Speci men Type: BLOOD SPECIMEN Ordering Facility: [facility] Address: [address] [place] [address] Performed By: #### 5 7021-8 #### [facility] CLIA [id number] [address] [place] [address] [place] Monocytes (Bld) [#/Vol] 0.97 10*3/uL High <0.[address] [facility] Comment on above: Order Comment: Speci men Type: BLOOD SPECIMEN Ordering Facility: [facility] Address: [address] [place] [address] Performed By: #### 5 7021-8 #### [facility] CLIA [id number] [address] [place] [address] [place] Monocytes/100 WBC (Bld) 6.7 % Normal [facility] Comment on above: Order Comment: Speci men Type: BLOOD SPECIMEN Ordering Facility: [facility] Address: [address] [place] [address] Performed By: #### 5 7021-8 #### [facility] CLIA [id number] [address] [place] [address] [place] Neutrophils (Bld) [#/Vol] 11.38 10*3/uL High 1.45-7.[address] [facility] Comment on above: Order Comment: Speci men Type: BLOOD SPECIMEN Ordering Facility: [facility] Address: [address] [place] [address] Performed By: #### 5 7021-8 #### [facility] CLIA [id number] [address] [place] [address] [place] Neutrophils/100 WBC (Bld) 78.1 % Normal [facility] Comment on above: Order Comment: Speci men Type: BLOOD SPECIMEN Ordering Facility: [facility] Address: [address] [place] [address] Performed By: #### 5 7021-8 #### [facility] CLIA [id number] [address] [place] [address] [place] Nucleated RBC (Bld) [#/Vol] 10*3/uL Normal <0.[address] [facility] Comment on above: Order Comment: Speci men Type: BLOOD SPECIMEN Ordering Facility: [facility] Address: [address] [place] [address] Performed By: #### 5 7021-8 #### [facility] CLIA [id number] [address] [place] [address] [place] Nucleated RBC/100 WBC (Bld) [Ratio] 0.0 /100 WBC Normal [facility] Comment on above: Order Comment: Speci men Type: BLOOD SPECIMEN Ordering Facility: [facility] Address: [address] [place] [address] Performed By: #### 5 7021-8 #### [facility] CLIA [id number] [address] [place] [address] [place] Platelet mean volume (Bld) [Entitic vol] 10.0 fL Normal 9.0-12.[address] [facility] Comment on above: Order Comment: Speci men Type: BLOOD SPECIMEN Ordering Facility: [facility] Address: [address] [place] [address] Performed By: #### 5 7021-8 #### [facility] CLIA [id number] [address] [place] [address] [place] Platelets (Bld) [#/Vol] 322 10*3/uL Normal 150-[address] [facility] Comment on above: Order Comment: Speci men Type: BLOOD SPECIMEN Ordering Facility: [facility] Address: [address] [place] [address] Performed By: #### 5 7021-8 #### [facility] CLIA [id number] [address] [place] [address] [place] RBC (Bld) [#/Vol] 4.00 10*6/uL Normal 3.90-5.20 [facility] Comment on above: Order Comment: Speci men Type: BLOOD SPECIMEN Ordering Facility: [facility] Address: [address] [place] [address] Performed By: #### 5 7021-8 #### [facility] CLIA [id number] [address] [place] [address] [place] WBC (Bld) [#/Vol] 14.54 10*3/uL High 3.70-11.00 [facility] Comment on above: Order Comment: Speci men Type: BLOOD SPECIMEN Ordering Facility: [facility] Address: [address] [place] [address] Performed By: #### 5 7021-8 #### [facility] CLIA [id number] [address] [place] [address] [place] GESTATIONAL GLUCOSE SCREEN, 1-HOUR, 50 GRAM, NON-FASTINGon 03-13-2025 Glucose [Mass/Vol] 132 mg/dL Normal 74-134 [facility] Comment on above: Order Comment: Speci men Type: BLOOD SPECIMEN Ordering Facility: [facility] Address: [address] [place], [place] [id number] Result Comment: [facility] [employer] of Obstetricians and Gynecologists (Duyen/Erika) guidelines state a gestational diabetes mellitus positive screen is made, in women not previously diagnosed with overt diabetes, when the 1 hr plasma glucose level is equal to or above 140 mg/dL. [facility] Speech Pathologist Assistant and [facility] recommends a 135 mg/dL cutoff. Performed By: #### G LTGST #### [facility] CLIA [id number] [address] [place] [address] [place] Reagin and Treponema pallidu m IgG and IgM [Interp]on 03-13-2025 T. pallidum IgG+IgM IA Ql (S) Non-Reactive Normal Nonreactive [facility] Comment on above: Order Comment: Speci men Type: BLOOD SPECIMEN Ordering Facility: [facility] Address: [address] [place] [address] Performed By: #### G LTGST #### [facility] CLIA [id number] [address] [place] [address] [place] Reagin+T pallidum IgG+IgM Se rPl-Impon 03-13-2025 Reagin and Treponema pallidum IgG and IgM [Interp] Cannot exclude recent Treponemal infection if specimen collected within 7-10 days after appearance of suspect lesions or 2-3 weeks after an exposure. Clinical correlation is required. Normal [facility] Comment on above: Order Comment: Speci men Type: BLOOD SPECIMEN Ordering Facility: [facility] Address: [address] [place] [address] Performed By: #### G LTGST #### [facility] CLIA [id number] [address] [place] [address] [place] T4 Free SerPl-mCncon 025 Free T4 [Mass/Vol] 0.5 ng/dL Low 0.9-1.7 [facility] Comment on above: Order Comment: Speci men Type: BLOOD SPECIMEN Ordering Facility: [facility] Address: [address] [place] [address] Performed By: #### G LTGST #### [facility] [id number] [address] [place] [address] [place] THYROGLOBULIN ANTIBODYon Thyroglobulin Ab Qn [IU]/mL Normal <4.0 [facility] Comment on above: Order Comment: Speci men Type: BLOOD SPECIMEN Ordering Facility: [facility] Address: [address] [place] [address] Result Comment: The Thyroglobulin Antibody test was performed using the [employer] Unicel DXI paramagnetic particle chemiluminescent immunoassay method. Results obtained with different assay methods or kits cannot be used interchangeably. Performed By: #### G LTGST #### [facility] CLIA [id number] [address] [place] [address] [place] TSH SerPl-aCncon 03-13-2025 TSH Qn 0.259 m[IU]/L Low 0.270-4.[address] [facility] Comment on above: Order Comment: Carol pérez Type: BLOOD SPECIMEN Ordering Facility: [facility] Address: [address] [place] [address] Result Comment: If t he patient is , TSH reference range varies by gestational period: First Trimester (weeks 9-12): 0.180-2.990 mIU/L Second Trimester: 0.110-3.980 mIU/L Third Trimester: 0.480-4.710 mIU/L Maxwell Ralph et al. A Practical Approach for the Verifications and Determination of Site- and Trimester-Specific Reference Intervals for Thyroid Function tests in . Thyroid, 2019:29:3:412-420. Manjit Grady, et al. 2017 Guidelines of the [place] Thyroid Association for the Diagnosis and Management of Thyroid Disease during and the . Thyroid, 2017:27:3:315-389. Performed By: #### G LTGST #### [facility] [id number] [address] [place] [address] [place] Examination level ultrasound [...] 11 oz EFW by: Hadlock (HC-AC-FL) [employer] Harvest Machine Operator 6.6 mm CM 4.5 mm 45% Nicolaides [...] normal LVOT view: normal 3-vessel view: normal 1-mryzxu-oocutih view: normal Heart / Thorax Situs: situs [...] Read By: Terri Patterson M.D. MATERNAL MEDICINE [facility] Radiology Study observation (narrative) [facility] Examination level ultrasound on 11-28-2024 Indication First trimester anatomic survey Maternal obesity, BMI >30 Impression The patient is referred for a first trimester anatomy scan including nuchal translucency measurement as clinically indicated. - Single, live, intrauterine . - Radnor rump length measurement is consistent with the [...] view: visualized 4-chamber view with color: visualized 4-jewcjf-nndzvsj view: visualized Abdominal cord insertion: normal Stomach: [...] Read By: Terri Patterson M.D. MATERNAL MEDICINE [facility] Radiology Study observation (narrative) [facility] [id number] PLUSon 11-28-2024 Cell-free DNA./Cell-free DNA.total Dosage of chromosome-specific cfDNA (cfDNA) [Molar fraction] 16% Normal [facility] Comment on above: Order Comment: Speccordelia pérez Type: BLOOD SPECIMEN Ordering Facility: [facility] Address: [address] [place] [address] Performed By: #### M AT21 #### [facility] CLIA [id number] [address] [place] [address] Chr 13+18+21+X+Y aneuploidy Dosage of chromosome-specific cfDNA Ql (cfDNA) Negative Normal [facility] Comment on above: Order Comment: Carol pérez Type: BLOOD SPECIMEN Ordering Facility: [facility] Address: [address] [place] [address] Performed By: #### M AT21 #### [facility] CLIA [id number] [address] [place] [address] Chr 21 trisomy Dosage of chromosome-specific cfDNA Ql (cfDNA) Negative Normal [facility] Comment on above: Order Comment: Speci beto Type: BLOOD SPECIMEN Ordering Facility: [facility] Address: [address] [place] [address] Performed By: #### M AT21 #### [facility] CLIA [id number] [address] [place] [address] Chr X and Y aneuploidy risk Sequencing Ql (cfDNA) [Interp] Not detected Normal [facility] Comment on above: Order Comment: Carol pérez Type: BLOOD SPECIMEN Ordering Facility: [facility] Address: [address] [place] [address] Result Comment: Not Detected Not Detected Performed By: #### M AT21 #### [facility] CLIA [id number] [address] [place] [address] Citation Andre (Reference lab test) Comment Normal [facility] Comment on above: Order Comment: Carol pérez Type: BLOOD SPECIMEN Ordering Facility: [facility] Address: [address] [place] [address] Result Comment: 1. P mg NIXON, et al. Beatris Med. 2012;14(3):296-305. 2. Vinny AUGUSTE et al. Prenat Diag. 2013;33(6):591-597. 3. Campo C, et al. Clin Chem. 2015 Apr;61(4):608-616. 4. Ronald NIXON et al. Beatris Med. 2011;13(11):913-920. 5. ACOG/SMFM Practice Bulletin No. 226, Mar 2020. Performed By: #### M AT21 #### [facility] CLIA [id number] [address] [place] [address] Gestational age Estimated from conception date [place] Normal [facility] Comment on above: Order Comment: Carol pérez Type: BLOOD SPECIMEN Ordering Facility: [facility] Address: [address] [place] [address] Performed By: #### M AT21 #### [facility] CLIA [id number] [address] [place] [id number] GESTATIONALAGE AGE > OR = 9W Yes Normal [facility] Comment on above: Order Comment: Carol pérez Type: BLOOD SPECIMEN Ordering Facility: [facility] Address: [address] [place] [address] Performed By: #### M AT21 #### [facility] CLIA [id number] [address] [place] [id number] Laboratory comment Andre (Report) Comment Normal [facility] Comment on above: Order Comment: Carol pérez Type: BLOOD SPECIMEN Ordering Facility: [facility] Address: [address] [place] [address] Result Comment: The MaterniT(R) 21 PLUS laboratory-developed [...] #### M AT21 #### [facility] CLIA [id number] [address] [place] [address] health program director name Nom (Provider) Comment Normal [facility] Comment on above: Order Comment: Speci men Type: BLOOD SPECIMEN Ordering Facility: [facility] Address: [address] [place] [address] Result Comment: This specimen showed an expected representation of chromosome 21, 18 and 13 material. Clinical correlation is suggested. Comment Alvin Alvarado MD, PhD, Director, [facility] Performed By: #### M AT21 #### [facility] CLIA [id number] [address] [place] [address] LIMITATIONS OF THE TEST Comment Normal [facility] Comment on above: Order Comment: Speci men Type: BLOOD SPECIMEN Ordering Facility: [facility] Address: [address] [place] [address] Result Comment: Benita grady the results of [...] Fragmin(R)). Performed By: #### M AT21 #### [facility].comIA [id number] [address] [place] [address] Monosomy X risk Dosage of chromosome-specific cfDNA Ql (Plasma cell-free+WBC DNA) [Interp] Not detected Normal [facility] Comment on above: Order Comment: Carol pérez Type: BLOOD SPECIMEN Ordering Facility: [facility] Address: [address] [place] [address] Performed By: #### M AT21 #### [facility] CLIA [id number] [address] [place] [address] NEGATIVE PREDICTIVE VALUE Note Normal [facility] Comment on above: Order Comment: Carol pérez Type: BLOOD SPECIMEN Ordering Facility: [facility] Address: [address] [place] [address] Result Comment: The Negative Predictive Value (NPV) for trisomy 21, 18, and 13 is greater than 99%. The NPV for SCA and ESS cannot be calculated as SCA and ESS are only reported when an abnormality is detected. Performed By: #### M AT21 #### [facility] CLIA [id number] [address] [place] [address] PERFORMANCE CHARACTERISTICS Note Normal [facility] Comment on above: Order Comment: Carol pérez Type: BLOOD SPECIMEN Ordering Facility: [facility] Address: [address] [place] [address] Result Comment: ! Sex ! Accuracy: 99.4% [...] only. Performed By: #### M AT21 #### [facility] CLIA [id number] [address] [place] [address] POSITIVE PREDICTIVE VALUE N/A Normal [facility] Comment on above: Order Comment: Speci men Type: BLOOD SPECIMEN Ordering Facility: [facility] Address: [address] [place] [address] Performed By: #### M AT21 #### [facility] CLIA [id number] [address] [place] [address] Reference Lab Test Method Comment Normal [facility] Comment on above: Order Comment: Speci beto Type: BLOOD SPECIMEN Ordering Facility: [facility] Address: [address] [place] [address] Result Comment: See Notes Circulating cell-free DNA [...] 22. Performed By: #### M AT21 #### [facility] CLIA [id number] [address] [place] [address] Service comment (Unsp spec) [Interp] Comment Normal [facility] Comment on above: Order Comment: Álvaroi beto Type: BLOOD SPECIMEN Ordering Facility: [facility] Address: [address] [place] [address] Result Comment: See Notes [employer] is a subsidiary of [employer], using the brand [employer]. This test was developed and its performance characteristics determined by [employer]. It has not been cleared or approved by the Food and Drug Administration. This laboratory is certified under the Clinical Laboratory Improvement Amendments (CLIA) as qualified to perform high complexity clinical laboratory testing and accredited by the [employer] [place] [employer] (CAP). If there is future clinical need for adding MaterniT GENOME testing, this specimen will be available until term. [facility] samples will not be retained beyond 60 days. [facility] patients will have to send a new sample for re-sequencing ([facility] Test Code: 279776). Performed By: #### M AT21 #### [facility] CLIA [id number] [address] [place] [address] Sex Dosage of chromosome-specific cfDNA Nom (cfDNA) Comment Normal [facility] Comment on above: Order Comment: Speci men Type: BLOOD SPECIMEN Ordering Facility: [facility] Address: [address] [place] [address] Result Comment: Cons istent with Male Performed By: #### M AT21 #### [facility] CLIA [id number] [address] [place], [place] [address] Test performance information Andre (Unsp spec) Comment Normal [facility] Comment on above: Order Comment: Speci men Type: BLOOD SPECIMEN Ordering Facility: [facility] Address: [address] [place] [address] Result Comment: The performance characteristics of the MaterniT(R) 21 PLUS laboratory-developed test (LDT) have been determined in a clinical validation study with women at increased risk for chromosomal aneuploidy.[1-4] Performed By: #### M AT21 #### [facility] CLIA [id number] [address] [place] [address] Trisomy 13 risk Dosage of chromosome-specific cfDNA Ql (cfDNA) [Interp] Negative Normal [facility] Comment on above: Order Comment: Speci men Type: BLOOD SPECIMEN Ordering Facility: [facility] Address: [address] [place] [address] Performed By: #### M AT21 #### [facility] CLIA [id number] [address] [place] [address] Trisomy 18 risk Dosage of chromosome-specific cfDNA Ql (Plasma cell-free+WBC DNA) [Interp] Negative Normal [facility] Comment on above: Order Comment: Speci men Type: BLOOD SPECIMEN Ordering Facility: [facility] Address: [address] [place] [address] Performed By: #### M AT21 #### [facility] CLIA [id number] [address] [place] [address] No Panel Informationon 11-28 Interpretation and review of laboratory results Normal [facility] T3, FREEon 11-28-2024 Free T3 [Mass/Vol] 3.8 pg/mL 2.3 - 4.1 pg/mL [facility] T3Free SerPl-ncon 11-29-19 25 Free T3 [Mass/Vol] 3.8 pg/mL Normal 2.3-4.1 [facility] Comment on above: Order Comment: Speci men Type: BLOOD SPECIMEN Ordering Facility: [facility] Address: [address] [place] [address] Performed By: #### G LTGST #### [facility] CLIA [id number] [address] [place] [address] [place] T4 FREE/FREE THYROXINEon Free T4 [Mass/Vol] 0.9 ng/dL 0.9 - 1.7 ng/dL [facility] T4 Free SerPl-mCncon 025 Free T4 [Mass/Vol] 0.9 ng/dL Normal 0.9-1.7 [facility] Comment on above: Order Comment: Speci men Type: BLOOD SPECIMEN Ordering Facility: [facility] Address: [address] [place] [address] Performed By: #### G LTGST #### [facility] CLIA [id number] [address] [place], [place] [address] [place] THYROID PEROXIDASE ANTIBODYo n 11-28-2024 TPO Ab Qn [IU]/mL Normal <5.[address] [facility] Comment on above: Order Comment: Speccordelia pérez Type: FLUID SPECIMEN Ordering Facility: [facility] Address: [address] [place] [address] Result Comment: Thyr oid Peroxidase Antibody test is used as an aid in diagnosis of autoimmune thyroid disease. Clinical correlation is required. Performed By: #### H PVHRT #### [facility] CLIA [id number] [address] [place] [address] [place] THYROID STIMULATING HORMONEo n 11-28-2024 TSH Qn 0.078 m[IU]/L [facility] Comment on above: If the [...] Grady, et al. 2017 Guidelines of the [place] Thyroid Association for the Diagnosis and Management of Thyroid Disease during and the . Thyroid, 2017:27:3:315-389. THYROID STIMULATING IMMUNOGL OBULIN BLOODon 11-28-2024 Thyroid stimulating immunoglobulins actual/normal (S) [Relative mass conc] % Normal <0.[address] [facility] Comment on above: Order Comment: Carol pérez Type: BLOOD SPECIMEN Ordering Facility: [facility] Address: [address] [place] [address] Result Comment: Thyr oid Stimulating Immunoglobulin test is used as an aid in diagnosis of autoimmune hyperthyroidism especially in patients with Grave's orbitopathy and dermopathy. Low positive TSH receptor stimulating antibody levels may occasionally be found in patients with autoimmune hypothyroidism. Clinical correlation is required. Performed By: #### T SIGIM #### [facility] CLIA [id number] [address] [place] [address] [place] TSI QUALITATIVE Negative Normal Negative [facility] Comment on above: Order Comment: Speci men Type: BLOOD SPECIMEN Ordering Facility: [facility] Address: [address] [place] [address] Performed By: #### T SIGIM #### [facility] CLIA [id number] [address] [place] [address] [place] TSH Qnon 11-28-2024 Interpretation and review of laboratory results Abnormal [facility] TSH SerPl-aCncon 11-28-2024 TSH Qn 0.078 m[IU]/L Low 0.270-4.[address] [facility] Comment on above: Order Comment: Speci beto Type: BLOOD SPECIMEN Ordering Facility: [facility] Address: [address] [place] [address] Result Comment: If t he patient is , TSH reference range varies by gestational period: First Trimester (weeks 9-12): 0.180-2.990 mIU/L Second Trimester: 0.110-3.980 mIU/L Third Trimester: 0.480-4.710 mIU/L Maxwell Ralph et al. A Practical Approach for the Verifications and Determination of Site- and Trimester-Specific Reference Intervals for Thyroid Function tests in . Thyroid, 2019:29:3:412-420. Manjit Grady, et al. 2017 Guidelines of the [place] Thyroid Association for the Diagnosis and Management of Thyroid Disease during and the . Thyroid, 2017:27:3:315-389. Performed By: #### G LTGST #### [facility] CLIA [id number] [address] [place] [address] [place] Free T4 [Mass/Vol]on 025 Interpretation and review of laboratory results Normal [facility] T4 FREE/FREE THYROXINEon Free T4 [Mass/Vol] 1.1 ng/dL 0.9 - 1.7 ng/dL [facility] CBC W Auto Differential pane l (Bld)on 11-07-2024 Basophils (Bld) [#/Vol] 0.04 10*3/uL Normal <0.[address] [facility] Comment on above: Order Comment: Speci men Type: BLOOD SPECIMEN Ordering Facility: [facility] Address: [facility] [place] [address] Performed By: #### G LTGST #### [facility] CLIA [id number] [address] [place] [address] [place] Basophils/100 WBC (Bld) 0.3 % Normal [facility] Comment on above: Order Comment: Speci men Type: BLOOD SPECIMEN Ordering Facility: [facility] Address: [address] [place] [address] Performed By: #### G LTGST #### [facility] CLIA [id number] [address] [place] [address] [place] Differential cell count method Nom (Bld) Auto Normal [facility] Comment on above: Order Comment: Speci men Type: BLOOD SPECIMEN Ordering Facility: [facility] Address: [address] [place] [address] Performed By: #### G LTGST #### [id number] [address] [place] [address] [place] Eosinophils (Bld) [#/Vol] 0.35 10*3/uL Normal <0.[address] [facility] Comment on above: Order Comment: Speci men Type: BLOOD SPECIMEN Ordering Facility: [facility] Address: [address] [place] [address] Performed By: #### G LTGST #### [facility] CLIA [id number] [address] [place] [address] [place] Eosinophils/100 WBC (Bld) 2.7 % Normal [facility] Comment on above: Order Comment: Speci men Type: BLOOD SPECIMEN Ordering Facility: [facility] Address: [address] [place] [address] Performed By: #### G LTGST #### [facility] CLIA [id number] [address] [place] [address] [place] Erythrocyte distribution width (RBC) [Ratio] 13.3 % Normal 11.5-15.[address] [facility] Comment on above: Order Comment: Speci men Type: BLOOD SPECIMEN Ordering Facility: [facility] Address: [address] [place] [address] Performed By: #### G LTGST #### [facility] CLIA [id number] [address] [place] [address] [place] Hematocrit (Bld) [Volume fraction] 39.7 % Normal 36.0-46.[address] [facility] Comment on above: Order Comment: Speci men Type: BLOOD SPECIMEN Ordering Facility: [facility] Address: [address] [place] [address] Performed By: #### G LTGST #### [facility] [id number] [address] [place] [address] [place] Hemoglobin (Bld) [Mass/Vol] 13.6 g/dL Normal 11.5-15.[address] [facility] Comment on above: Order Comment: Speci men Type: BLOOD SPECIMEN Ordering Facility: [facility] Address: [address] [place] [address] Performed By: #### G LTGST #### [facility] [id number] [address] [place] [address] [place] Immature granulocytes (Bld) [#/Vol] 0.04 10*3/uL Normal <0.[address] [facility] Comment on above: Order Comment: Speci men Type: BLOOD SPECIMEN Ordering Facility: [facility] Address: [address] [place] [address] Performed By: #### G LTGST #### [facility] [id number] [address] [place] [address] [place] Immature granulocytes/100 WBC (Bld) 0.3 % Normal [facility] Comment on above: Order Comment: Speci men Type: BLOOD SPECIMEN Ordering Facility: [facility] Address: [address] [place] [address] Performed By: #### G LTGST #### [facility] CLIA [id number] [address] [place] [address] [place] Lymphocytes (Bld) [#/Vol] 2.69 10*3/uL Normal 1.00-4.[address] [facility] Comment on above: Order Comment: Speci men Type: BLOOD SPECIMEN Ordering Facility: [facility] Address: [address] [place] [address] Performed By: #### G LTGST #### [facility] CLIA [id number] [address] [place] [address] [place] Lymphocytes/100 WBC (Bld) 20.4 % Normal [facility] Comment on above: Order Comment: Speci men Type: BLOOD SPECIMEN Ordering Facility: [facility] Address: [address] [place] [address] Performed By: #### G LTGST #### [facility] CLIA [id number] [address] [place] [address] [place] MCH (RBC) [Entitic mass] 30.2 pg Normal 26.0-34.[address] [facility] Comment on above: Order Comment: Speci men Type: BLOOD SPECIMEN Ordering Facility: [facility] Address: [address] [place] [address] Performed By: #### G LTGST #### [facility] CLIA [id number] [address] [place] [address] [place] MCHC (RBC) [Mass/Vol] 34.3 g/dL Normal 30.5-36.[address] [facility] Comment on above: Order Comment: Speci men Type: BLOOD SPECIMEN Ordering Facility: [facility] Address: [address] [place] [address] Performed By: #### G LTGST #### [facility] CLIA [id number] [address] [place] [address] [place] MCV (RBC) [Entitic vol] 88.2 fL Normal 80.0-100.[address] [facility] Comment on above: Order Comment: Speci men Type: BLOOD SPECIMEN Ordering Facility: [facility] Address: [address] [place] [address] Performed By: #### G LTGST #### [facility] CLIA [id number] [address] [place] [address] [place] Monocytes (Bld) [#/Vol] 1.00 10*3/uL High <0.[address] [facility] Comment on above: Order Comment: Speci men Type: BLOOD SPECIMEN Ordering Facility: [facility] Address: [address] [place] [address] Performed By: #### G LTGST #### [facility] CLIA [id number] [address] [place] [address] [place] Monocytes/100 WBC (Bld) 7.6 % Normal [facility] Comment on above: Order Comment: Speci men Type: BLOOD SPECIMEN Ordering Facility: [facility] Address: [address] [place] [address] Performed By: #### G LTGST #### [facility] CLIA [id number] [address] [place] [address] [place] Neutrophils (Bld) [#/Vol] 9.07 10*3/uL High 1.45-7.[address] [facility] Comment on above: Order Comment: Speci men Type: BLOOD SPECIMEN Ordering Facility: [facility] Address: [address] [place] [address] Performed By: #### G LTGST #### [facility] CLIA [id number] [address] [place] [address] [place] Neutrophils/100 WBC (Bld) 68.7 % Normal [facility] Comment on above: Order Comment: Speci men Type: BLOOD SPECIMEN Ordering Facility: [facility] Address: [facility] [place] [address] Performed By: #### G LTGST #### [facility] CLIA [id number] [address] [place] [address] [place] Nucleated RBC (Bld) [#/Vol] 10*3/uL Normal <0.[address] [facility] Comment on above: Order Comment: Speci men Type: BLOOD SPECIMEN Ordering Facility: [facility] Address: [address] [place] [address] Performed By: #### G LTGST #### [facility] CLIA [id number] [address] [place] [address] [place] Nucleated RBC/100 WBC (Bld) [Ratio] 0.0 /100 WBC Normal [facility] Comment on above: Order Comment: Speci men Type: BLOOD SPECIMEN Ordering Facility: [facility] Address: [address] [place] [address] Performed By: #### G LTGST #### [facility] [id number] [address] [place] [address] [place] Platelet mean volume (Bld) [Entitic vol] 10.2 fL Normal 9.0-12.[address] [facility] Comment on above: Order Comment: Speci men Type: BLOOD SPECIMEN Ordering Facility: [facility] Address: [address] [place] [address] Performed By: #### G LTGST #### [facility] [id number] [address] [place] [address] [place] Platelets (Bld) [#/Vol] 326 10*3/uL Normal 150-[address] [facility] Comment on above: Order Comment: Speci men Type: BLOOD SPECIMEN Ordering Facility: [facility] Address: [address] [place] [address] Performed By: #### G LTGST #### [facility] CLIA [id number] [address] [place] [address] [place] RBC (Bld) [#/Vol] 4.50 10*6/uL Normal 3.90-5.20 [facility] Comment on above: Order Comment: Speci men Type: BLOOD SPECIMEN Ordering Facility: [facility] Address: [address] [place] [address] Performed By: #### G LTGST #### [facility] CLIA [id number] [address] [place] [address] [place] WBC (Bld) [#/Vol] 13.19 10*3/uL High 3.70-11.00 [facility] Comment on above: Order Comment: Speci men Type: BLOOD SPECIMEN Ordering Facility: [facility] Address: [address] [place] [address] Performed By: #### G LTGST #### [facility] CLIA [id number] [address] [place] [address] [place] Comprehensive metabolic 2000 panelon 11-07-2024 Albumin [Mass/Vol] 4.2 g/dL Normal 3.9-4.9 [facility] Comment on above: Order Comment: Speci men Type: BLOOD SPECIMEN Ordering Facility: [facility] Address: [address] [place] [address] Performed By: #### 2 4323-8 #### [facility] CLIA [id number] [address] [place] [address] [place] ALP [Catalytic activity/Vol] 47 U/L Normal 34-[address] [facility] Comment on above: Order Comment: Speci men Type: BLOOD SPECIMEN Ordering Facility: [facility] Address: [address] [place] [address] Performed By: #### 2 4323-8 #### [facility] CLIA [id number] [address] [place] [address] [place] ALT [Catalytic activity/Vol] 13 U/L Normal 7-[address] [facility] Comment on above: Order Comment: Speci men Type: BLOOD SPECIMEN Ordering Facility: [facility] Address: [address] [place] [address] Performed By: #### 2 4323-8 #### [facility] CLIA [id number] [address] [place] [address] [place] Anion gap [Moles/Vol] 13 mmol/L Normal 8-[address] [facility] Comment on above: Order Comment: Speci men Type: BLOOD SPECIMEN Ordering Facility: [facility] Address: [address] [place] [address] Performed By: #### 2 4323-8 #### [facility] CLIA [id number] [address] [place] [address] [place] AST [Catalytic activity/Vol] 15 U/L Normal 13-[address] [facility] Comment on above: Order Comment: Speci men Type: BLOOD SPECIMEN Ordering Facility: [facility] Address: [address] [place] [address] Performed By: #### 2 4323-8 #### [facility] CLIA [id number] [address] [place] [address] [place] Bilirubin [Mass/Vol] 0.2 mg/dL Normal 0.2-1.3 [facility] Comment on above: Order Comment: Speci men Type: BLOOD SPECIMEN Ordering Facility: [facility] Address: [address] [place] [address] Performed By: #### 2 4323-8 #### [facility] CL[facility] [id number] [address] [place] [address] [place] Calcium [Mass/Vol] 10.2 mg/dL Normal 8.5-10.2 [facility] Comment on above: Order Comment: Speci men Type: BLOOD SPECIMEN Ordering Facility: [facility] Address: [address] [place] [address] Performed By: #### 2 4323-8 #### [facility] CLIA [id number] [address] [place] [address] [place] Chloride [Moles/Vol] 103 mmol/L Normal 98-107 [facility] Comment on above: Order Comment: Speci men Type: BLOOD SPECIMEN Ordering Facility: [facility] Address: [address] [place] [address] Performed By: #### 2 4323-8 #### [facility] CLIA [id number] [address] [place] [address] [place] CO2 [Moles/Vol] 19 mmol/L Low 22-[address] [facility] Comment on above: Order Comment: Speci men Type: BLOOD SPECIMEN Ordering Facility: [facility] Address: [address] [place] [address] Performed By: #### 2 4323-8 #### [facility] CLIA [id number] [address] [place] [address] [place] Creatinine [Mass/Vol] 0.51 mg/dL Low 0.58-0.[address] [facility] Comment on above: Order Comment: Speci men Type: BLOOD SPECIMEN Ordering Facility: [facility] Address: [address] [place] [address] Performed By: #### 2 4323-8 #### [facility] CLIA [id number] [address] [place] [address] [place] Creatinine and Glomerular filtration rate.predicted panel (S/P/Bld) 127 mL/min/1.73m??? Normal >=[address] [facility] Comment on above: Order Comment: Speci men Type: BLOOD SPECIMEN Ordering Facility: [facility] Address: [address] [place] [address] Result Comment: Jennifer mated Glomerular Filtration Rate [...] GFR. Performed By: #### 2 4323-8 #### [facility] [id number] [address] [place] [address] [place] Glucose [Mass/Vol] 91 mg/dL Normal 74-99 [facility] Comment on above: Order Comment: Carol pérez Type: BLOOD SPECIMEN Ordering Facility: [facility] Address: [address] [place] [address] Result Comment: The [place] Diabetes Association (ADA) provides guidance for cutoff [...] Standards of Medical Care in Diabetes 2016, [place] Diabetes Association. Diabetes Care. 2016.39(Suppl 1). Performed By: #### 2 4323-8 #### [facility] [id number] [address] [place] [address] [place] Potassium [Moles/Vol] 4.0 mmol/L Normal 3.7-5.[address] [facility] Comment on above: Order Comment: Carol pérez Type: BLOOD SPECIMEN Ordering Facility: [facility] Address: [address] [place] [address] Performed By: #### 2 4323-8 #### [facility] CLIA [id number] [address] [place] [address] [place] Protein [Mass/Vol] 7.0 g/dL Normal 6.3-8.0 [facility] Comment on above: Order Comment: Speci men Type: BLOOD SPECIMEN Ordering Facility: [facility] Address: [address] [place] [address] Performed By: #### 2 4323-8 #### [facility] CLIA [id number] [address] [place] [address] [place] Sodium [Moles/Vol] 135 mmol/L Low 136-144 [facility] Comment on above: Order Comment: Speci men Type: BLOOD SPECIMEN Ordering Facility: [facility] Address: [address] [place] [address] Performed By: #### 2 4323-8 #### [facility] CLIA [id number] [address] [place] [address] [place] Urea nitrogen [Mass/Vol] 6 mg/dL Low 7-[address] [facility] Comment on above: Order Comment: Speci men Type: BLOOD SPECIMEN Ordering Facility: [facility] Address: [address] [place] [address] Performed By: #### 2 4323-8 #### [facility] [id number] [address] [place] [address] [place] HBV surface Ag Ser Qlon 10-20 HBV surface Ag Ql (S) Negative Normal Negative [facility] Comment on above: Order Comment: Speci men Type: FLUID SPECIMEN Ordering Facility: [facility] Address: [address] [place] [address] Performed By: #### H PVHRT #### [facility] CLIA [id number] [address] [place] [address] [place] HCV Ab Ser Qlon 11-07-2024 HCV Ab Ql (S) Negative Normal Negative [facility] Comment on above: Order Comment: Speci men Type: FLUID SPECIMEN Ordering Facility: [facility] Address: [address] [place] [address] Result Comment: The result suggests no evidence of infection with Hepatitis C virus. Should recent infection be suspected, repeat testing may be considered 4-6 weeks after this draw. Performed By: #### H PVHRT #### [facility] CLIA [id number] [address] [place] [address] [place] HIV 1+2 Ab IA Qlon 5 HIV 1 and 2 Ab IA.rapid Nom (S/P/Bld) Normal [facility] Comment on above: Order Comment: Speci men Type: FLUID SPECIMEN Ordering Facility: [facility] Address: [address] [place] [address] Result Comment: Test not indicated. Performed By: #### H PVHRT #### [facility] CLIA [id number] [address] [place] [address] [place] HIV 1+2 Ab+HIV1 p24 Ag IA Ql Non-Reactive Normal Nonreactive [facility] Comment on above: Order Comment: Speci men Type: FLUID SPECIMEN Ordering Facility: [facility] Address: [address] [place] [address] Performed By: #### H PVHRT #### [facility] CLIA [id number] [address] [place] [address] OF [facility] HIV immunoassay testing algorithm interpretation (S/P/Bld) [Interp] Normal [facility] Comment on above: Order Comment: Speci men Type: FLUID SPECIMEN Ordering Facility: [facility] Address: [address] [place] [address] Result Comment: No e vidence of HIV-1 or HIV-2 infection. Should recent infection be suspected, repeat testing may be considered 2-3 weeks after this draw. [place] Rev. Code 3701.243(E): This information has been [...] diagnoses. Performed By: #### H PVHRT #### [facility] CLIA [id number] [address] [place], [place] [address] [address] [place] HbA1c (Bld)on 11-07-2024 Average glucose Estimated from glycated hemoglobin (Bld) [Mass/Vol] 91 mg/dL Normal [facility] Comment on above: Order Comment: Speci men Type: BLOOD SPECIMEN [facility] [facility] Address: [address] [place] [address] Result Comment: eAG: (Estimated average glucose) is a calculated value from HgbA1c and is direct marketing representative of the average blood glucose level in the last 2-3 month period. Performed By: #### G LTGST #### [facility] [id number] [address] [place] [address] STATES OF [facility] HbA1c (Bld) [Mass fraction] 4.8 % Normal 4.3-5.[address] [facility] Comment on above: Order Comment: [facility] Type: BLOOD SPECIMEN Ordering Facility: [facility] Address: [address] [place] [address] Result Comment: Amer [place] Diabetes Association guidelines indicate that patients with HgbA1c in the range 5.7-6.4% are at increased risk for development of diabetes, and intervention by lifestyle modification may be beneficial. HgbA1c greater or equal to 6.5% is considered diagnostic of diabetes. Performed By: #### G LTGST #### [facility] [id number] [address] [place] [address] [place] Prot/Creat Uron 11-07-2024 Protein/Creatinine (U) [Mass ratio] mg/g Normal <0.[address] [facility] Comment on above: Order Comment: Speci men Type: FLUID SPECIMEN Ordering Facility: [facility] Address: [address] [place] [address] Result Comment: Adul t Proteinuria Categories: <0.15 mg/mg is considered normal to mildly increased 0.15 - 0.50 mg/mg is considered moderately increased >0.50 mg/mg is considered severely increased KDIGO. (2013). KDIGO 2012 Clinical Practice Guideline for the Evaluation and Management of Chronic Kidney Disease. Official Journal of the International Society of Nephrology, 3(1), 1-150. Performed By: #### H PVHRT #### [facility] CLIA [id number] [address] [place] [address] [place] Protein/Creatinine (U) [Mass ratio]on 11-07-2024 Creatinine (U) [Mass/Vol] 30.3 mg/dL Normal 20.0-300.[address] [facility] Comment on above: Order Comment: Speci men Type: FLUID SPECIMEN Ordering Facility: [facility] Address: [address] [place] [address] Performed By: #### H PVHRT #### [facility] CLIA [id number] [address] [place] [address] STATES OF [facility] Protein (U) [Mass/Vol] mg/dL Normal 0-[address] [facility] Comment on above: Order Comment: Speci beto Type: FLUID SPECIMEN Ordering Facility: [facility] Address: [address] [place] [address] Performed By: #### H PVHRT #### [facility] CLIA [id number] [address] [place] [address] RUBELLA IGG ANTIBODYon 11-07 RUBELLA IGG AB, QUAL Positive Normal Positive [facility] Comment on above: Order Comment: Álvaroi beto Type: BLOOD SPECIMEN Ordering Facility: [facility] Address: [address] [place] [address] Result Comment: The result suggests recent or past exposure to Rubella virus or history of Rubella vaccination. Positive result may also be seen due to presence of passively-transferred antibodies. Please correlate with patient's history. Performed By: #### G LTGST #### [facility] CLIA [id number] [address] [place] [address] [place] Reagin and Treponema pallidu m IgG and IgM [Interp]on 11-07-2024 T. pallidum IgG+IgM IA Ql (S) Non-Reactive Normal Nonreactive [facility] Comment on above: Order Comment: Speci men Type: FLUID SPECIMEN Ordering Facility: [facility] Address: [address] [place] [address] Performed By: #### H PVHRT #### [facility] CLIA [id number] [address] [place] [address] [place] Reagin+T pallidum IgG+IgM Se rPl-Impon 11-07-2024 Reagin and Treponema pallidum IgG and IgM [Interp] Cannot exclude recent Treponemal infection if specimen collected within 7-10 days after appearance of suspect lesions or 2-3 weeks after an exposure. Clinical correlation is required. Normal [facility] Comment on above: Order Comment: Speci men Type: FLUID SPECIMEN Ordering Facility: [facility] Address: [address] [place] [address] Performed By: #### H PVHRT #### [facility] CLIA [id number] [address] [place] [address] [place] T4 Free SerPl-mCncon 025 Free T4 [Mass/Vol] 1.1 ng/dL Normal 0.9-1.7 [facility] Comment on above: Order Comment: Speci men Type: BLOOD SPECIMEN Ordering Facility: [facility] Address: [address] [place] [address] Performed By: #### 3 024-7, 3016-3 #### [facility] CLIA [id number] [address] [place] [address] [place] TSH SerPl-aCncon 11-07-2024 TSH Qn 0.041 m[IU]/L Low 0.270-4.[address] [facility] Comment on above: Order Comment: Speci men Type: BLOOD SPECIMEN Ordering Facility: [facility] Address: [address] [place] [address] Result Comment: If t he patient is , TSH reference range varies by gestational period: First Trimester (weeks 9-12): 0.180-2.990 mIU/L Second Trimester: 0.110-3.980 mIU/L Third Trimester: 0.480-4.710 mIU/L Maxwell Ralph et al. A Practical Approach for the Verifications and Determination of Site- and Trimester-Specific Reference Intervals for Thyroid Function tests in . Thyroid, 2019:29:3:412-420. Manjit Grady, et al. 2017 Guidelines of the [place] Thyroid Association for the Diagnosis and Management of Thyroid Disease during and the . Thyroid, 2017:27:3:315-389. Performed By: #### 3 024-7, 3016-3 #### [facility] CLIA [id number] [address] [place] [address] [place] TYPE + SCREEN PRENATALon ABO B Normal [facility] Comment on above: Order Comment: Speci men Type: BLOOD SPECIMEN Ordering Facility: [facility] Address: [address] [place] [address] Performed By: #### T SPN #### [facility] CLIA [id number] [address] [place] [address] [place] Rh Nom (Bld) Positive Normal [facility] Comment on above: Order Comment: Speci men Type: BLOOD SPECIMEN Ordering Facility: [facility] Address: [address] [place] [address] Performed By: #### T SPN #### [facility] CLIA [id number] [address] [place], [place] [address] [address] [place] TYPE AND SCREEN EXPIRATION 11/10/2024 23:[address] [facility] Comment on above: Order Comment: Speci men Type: BLOOD SPECIMEN Ordering Facility: [facility] Address: [address] [place] [address] Performed By: #### T SPN #### [facility] CLIA [id number] [address] [place] [address] [place] Bacteria Ur Culton Bacteria identified Cx Nom (U) ORGANISM ID: 1 <10,000 CFU/ml Normal urogenital phi Normal [facility] Comment on above: Performed By: #### H PVHRT #### [facility] CLIA [id number] [address] [place] [address] [place] C. trachomatis+N. gonorrhoea e DNA MICHAEL+probe Ql (Unsp spec)on 10-26-2024 C. trachomatis rRNA MICHAEL+probe Ql (Unsp spec) Not detected Normal Not detected [facility] Comment on above: Order Comment: Speci men Type: BLOOD SPECIMEN Ordering Facility: [facility] Address: [address] [place] [address] Performed By: #### M AT21 #### [facility] CLIA [id number] [address] [place] [address] N. gonorrhoeae rRNA MICHAEL+probe Ql (Unsp spec) Not detected Normal Not detected [facility] Comment on above: Order Comment: Speci men Type: BLOOD SPECIMEN Ordering Facility: [facility] Address: [address] [place] [address] Performed By: #### M AT21 #### [facility] CLIA [id number] [address] [place] [address] HIGH RISK HUMAN PAPILLOMA JENN (HPV), PCR FOR DETECTION AND GENOTYPINGon 10-26-2024 HPV 16 Ag Ql (Unsp spec) Not detected Normal Not detected [facility] Comment on above: Order Comment: Speci men Type: FLUID SPECIMEN Ordering Facility: [facility] Address: [address] [place] [address] Performed By: #### H PVHRT #### [facility] CLIA [id number] [address] [place] [address] [place] HPV 18 Ag Ql (Unsp spec) Not detected Normal Not detected [facility] Comment on above: Order Comment: Speci men Type: FLUID SPECIMEN Ordering Facility: [facility] Address: [address] [place] [address] Performed By: #### H PVHRT #### [facility] CLIA [id number] [address] [place] [address] [place] HPV 31+33+35+39+45+51+52 +56+58+59+66+68 DNA MICHAEL+probe Ql (Cvx) Not detected Normal Not detected [facility] Comment on above: Order Comment: Speci men Type: FLUID SPECIMEN Ordering Facility: [facility] Address: [address] [place] [address] Result Comment: High Risk HPV Other Type includes HPV types 31, 33, 35, 39, 45, 51, 52, 56, 58, 59, 66 and 68. Performed By: #### H PVHRT #### [facility] CLIA [id number] [address] [place] [address] [place] PAP TESTon 10-26-2024 ADEQUACY Normal [facility] Comment on above: Order Comment: Speci men Type: FLUID SPECIMEN Ordering Facility: [facility] Address: [address] [place] [address] Result Comment: Sati sfactory for interpretation. Transformation zone present Performed By: #### L [id number] #### [facility] CLIA [id number] [address] [place] [address] [place] CASE REPORT Normal [facility] Comment on above: Order Comment: Speci men Type: FLUID SPECIMEN Ordering Facility: [facility] Address: [address] [place] [address] Result Comment: Gyne cologic Cytology Report Case: [id number] Authorizing Provider: Fatemeh Holt APRN.STRETCHER HELPER Collected: 10/26/2024 10:09 AM Ordering Location: OB/Gynecology Received: 10/26/2024 12:23 PM First Screen: Ryan, Gris, CT, ASCP Rescreen: Gersey, Shonda, CT, ASCP Specimen: Pap Test, ThinPrep, Cervix Performed By: #### L [id number] #### [facility] CLIA [id number] [address] [place] [address] [place] [address] [place] CLINICAL HISTORY, CYTOLOGY, RAIL LAYER Routine Exam Normal [facility] Comment on above: Order Comment: Speci men Type: FLUID SPECIMEN Ordering Facility: [facility] Address: [address] [place], [place] [address] Performed By: #### L [id number] #### [facility] CLIA [id number] [address] [place] [address] [place] [address] [place] FINAL PERFORMING LAB Normal [facility] Comment on above: Order Comment: Speci men Type: FLUID SPECIMEN Ordering Facility: [facility] Address: [address] [place] [address] Result Comment: Tech nical component, senior financial reporting accountant screening performed at: [facility], [address] [place], [place] [id number] CLIA: [id number] Diagnostic interpretation performed at: [facility], [address] [place] [address] [place] [address] CLIA# [id number] Track Grinder Operator: Apollo Espinoza MD Performed By: #### L [id number] #### [facility] CLIA [id number] [address] [place] [address] [place] INTERPRETATION, CYTOLOGY, RAIL LAYER Normal [facility] Comment on above: Order Comment: Speci men Type: FLUID SPECIMEN Ordering Facility: [facility] Address: [address] [place], [place] [address] Result Comment: Nega tive for intraepithelial lesion or malignancy. at 1345 EDT Performed By: #### L [id number] #### [facility] CLIA [id number] [address] [place] [address] [place] [address] [place] LMP 09/01/[address] [facility] Comment on above: Order Comment: Speci men Type: FLUID SPECIMEN Ordering Facility: [facility] Address: [address] [place] [address] Performed By: #### L [id number] #### [facility] CLIA [id number] [address] [place] [address] [place] PAP DISCLAIMER COMMENT The Pap Smear is a screening test for cervical cancer. False negative results occur with all screening tests, emphasizing the need for rescreening at recommended intervals, and clinical correlation. Normal [facility] Comment on above: Order Comment: Speci men Type: FLUID SPECIMEN Ordering Facility: [facility] Address: [address] [place] [address] Performed By: #### L [id number] #### [facility] CLIA [id number] [address] [place] [address] [place] PAP TRADING ASSISTANT COMMENT This specimen has be en analyzed by the ThinPrep Imaging System, an automated imaging and review system, which assists the laboratory in evaluating cells on ThinPrep Pap tests. Following automated imaging, selected carl from every slide are reviewed by a senior financial reporting accountant. Normal [facility] Comment on above: Order Comment: Speci men Type: FLUID SPECIMEN Ordering Facility: [facility] Address: [address] [place] [address] Performed By: #### L [id number] #### [facility] CLIA [id number] [address] [place] [address] [place] POC COAL PULVERIZER OPERATOR ULTRASOUNDon 10-27-19 25 Indication Viability; confirm [...] Read By: Fatemeh Holt NP MATERNAL MEDICINE [facility] Radiology Study observation (narrative) [facility] TRICHOMONAS VAGINALIS NAATon 10-26-2024 T. vaginalis DNA MICHAEL+probe Ql (Unsp spec) Not detected Normal Not detected [facility] Comment on above: Order Comment: Speci men Type: BLOOD SPECIMEN Ordering Facility: [facility] Address: [address] [place] [address] Performed By: #### M AT21 #### [facility] CLIA [id number] [address] [place] [address] CBC W/Diff, Automatedon 05-0 Absolute Lymph 4.54 X10 3/uL High 0.83-4.51 [facility] Comment on above: Performed By: #### L 500.4050, L501.4021, L100.0100 #### [facility] [address] [place], [address] Absolute Neut 7.5 X10 3/uL Normal 2.0-7.7 [facility] Comment on above: Performed By: #### L 500.4050, L501.4021, L100.0100 #### [facility] [address] [place], [address] Basophils/100 WBC (Bld) 0.4 % Normal 0-1 [facility] Comment on above: Performed By: #### L 500.4050, L501.4021, L100.0100 #### [facility] [address] [place], [address] Eosinophils/100 WBC (Bld) 4.1 % Normal 0-5 [facility] Comment on above: Performed By: #### L 500.4050, L501.4021, L100.0100 #### [facility] [address] [place], [address] Erythrocyte distribution width (RBC) [Ratio] 13.5 % Normal 11.6-14.6 [facility] Comment on above: Performed By: #### L 500.4050, L501.4021, L100.0100 #### [facility] [address] [place], [address] Hematocrit (Bld) [Volume fraction] 36.0 % Low 37-47 [facility] Comment on above: Performed By: #### L 500.4050, L501.4021, L100.0100 #### [facility] [address] [place], [address] Hemoglobin (Bld) [Mass/Vol] 12.5 g/dL Normal 12.0-15.0 [facility] Comment on above: Performed By: #### L 500.4050, L501.4021, L100.0100 #### [facility] [address] [place], [place], IG% 0.400 Normal 0.0-0.9 [facility] Comment on above: Result Comment: IG% - Immature Granulocytes (promyelocytes, myelocytes and metamyelocytes) > 1% indicates that a LEFT SHIFT is Present. Performed By: #### L 500.4050, L501.4021, L100.0100 #### [facility] [address] [place], [address] Lymphocytes/100 WBC (Bld) 32.1 % Normal 19-41 [facility] Comment on above: Performed By: #### L 500.4050, L501.4021, L100.0100 #### [facility] [facility] [address] [place], [address] MCH (RBC) [Entitic mass] 30.8 pg Normal 27.0-32.0 [facility] Comment on above: Performed By: #### L 500.4050, L501.4021, L100.0100 #### [facility] [address] [place], [address] MCHC (RBC) [Mass/Vol] 34.7 g/dL Normal 32-36 [facility] Comment on above: Performed By: #### L 500.4050, L501.4021, L100.0100 #### [facility] [address] [place], [address] MCV (RBC) [Entitic vol] 88.7 fL Normal 81-99 [facility] Comment on above: Performed By: #### L 500.4050, L501.4021, L100.0100 #### [facility] [address] [place], [address] Monocytes/100 WBC (Bld) 10.0 % Normal 0-10 [facility] Comment on above: Performed By: #### L 500.4050, L501.4021, L100.0100 #### [facility] [address] [place], [address] Neutrophils/100 WBC (Bld) 53.0 % Normal 47-70 [facility] Comment on above: Performed By: #### L 500.4050, L501.4021, L100.0100 #### [facility] [address] [place], [address] Nucleated RBC (Bld) [#/Vol] 0 10*3/uL Normal 0-5 [facility] Comment on above: Performed By: #### L 500.4050, L501.4021, L100.0100 #### [facility] [address] [place], [address] Platelet mean volume (Bld) [Entitic vol] 10.1 fL Normal 6.2-12.0 [facility] Comment on above: Performed By: #### L 500.4050, L501.4021, L100.0100 #### [facility] [address] [place], [address] Platelets (Bld) [#/Vol] 299 10*3/uL Normal 150-450 [facility] Comment on above: Performed By: #### L 500.4050, L501.4021, L100.0100 #### [facility] [address] [place], [address] RBC (Bld) [#/Vol] 4.06 10*6/uL Low 4.2-5.4 [facility] Comment on above: Performed By: #### L 500.4050, L501.4021, L100.0100 #### [facility] [address] [place], [address] RDW SD 43.9 fl Normal 35.1-43.9 [facility] Comment on above: Performed By: #### L 500.4050, L501.4021, L100.0100 #### [facility] [address] [place], [address] WBC (Bld) [#/Vol] 14.1 10*3/uL High 4.4-11.0 [facility] Comment on above: Performed By: #### L 500.4050, L501.4021, L100.0100 #### [facility] [address] [place], [address] Comprehensive Metabolic Prof ilon 10-21-2024 Albumin [Mass/Vol] 4.1 g/dL Normal 3.5-5.0 [facility] Comment on above: Performed By: #### L 500.4050, L501.4021, L100.0100 #### [facility] [address] [place], [address] Albumin/Globulin [Mass ratio] 1.6 {ratio} Normal 0.9-2.4 [facility] Comment on above: Performed By: #### L 500.4050, L501.4021, L100.0100 #### [facility] [address] [place], [address] ALK PHOS 48 U/L Normal 35-104 [facility] Comment on above: Performed By: #### L 500.4050, L501.4021, L100.0100 #### [facility] [address] [place], [address] ALT [Catalytic activity/Vol] 22 U/L Normal <=34 [facility] Comment on above: Performed By: #### L 500.4050, L501.4021, L100.0100 #### [facility] [address] [place], [address] AST [Catalytic activity/Vol] 21 U/L Normal <=31 [facility] Comment on above: Performed By: #### L 500.4050, L501.4021, L100.0100 #### [facility] [address] [place], [address] BUN/CRE 14.6 RATIO Normal 10-20 [facility] Comment on above: Performed By: #### L 500.4050, L501.4021, L100.0100 #### [facility] [address] [place], [address] Calcium [Mass/Vol] 10.0 mg/dL Normal 7.6-11.0 [facility] Comment on above: Performed By: #### L 500.4050, L501.4021, L100.0100 #### [facility] [address] [place], [address] Chloride [Moles/Vol] 104 mmol/L Normal 98-108 [facility] Comment on above: Performed By: #### L 500.4050, L501.4021, L100.0100 #### [facility] [address] [place], [address] CO2 [Moles/Vol] 21.4 mmol/L Normal 21.0-32.0 [facility] Comment on above: Performed By: #### L 500.4050, L501.4021, L100.0100 #### [facility] [address] [place], [address] Creatinine [Mass/Vol] 0.58 mg/dL Low 0.70-1.20 [facility] Comment on above: Performed By: #### L 500.4050, L501.4021, L100.0100 #### [facility] [address] [place], [address] GAP 12 Normal 5-15 [facility] Comment on above: Performed By: #### L 500.4050, L501.4021, L100.0100 #### [facility] [address] [place], [address] GFR/1.73 sq M.predicted among non-blacks MDRD (S/P/Bld) [Vol rate/Area] 123 mL/min/{1.73_m2} Normal >60 [facility] Comment on above: Result Comment: mL/m in/1.73m2 CKD-EPI Creatinine Equation (2020) Performed By: #### L 500.4050, L501.4021, L100.0100 #### [facility] [address] [place], [address] Globulin (S) [Mass/Vol] 2.6 g/dL Normal 2.2-4.2 [facility] Comment on above: Performed By: #### L 500.4050, L501.4021, L100.0100 #### [facility] [address] [place], [address] Glucose [Mass/Vol] 100 mg/dL High 70-99 [facility] Comment on above: Performed By: #### L 500.4050, L501.4021, L100.0100 #### [facility] [address] [place], [address] Potassium [Moles/Vol] 3.7 mmol/L Normal 3.3-5.1 [facility] Comment on above: Performed By: #### L 500.4050, L501.4021, L100.0100 #### [facility] [address] [place], [address] Sodium [Moles/Vol] 137 mmol/L Normal 133-145 [facility] Comment on above: Performed By: #### L 500.4050, L501.4021, L100.0100 #### [facility] [address] [place], [address] T BILI < 0.15 Normal 0.00-1.30 [facility] Comment on above: Performed By: #### L 500.4050, L501.4021, L100.0100 #### [facility] [address] [place], [address] T PROT 6.8 g/dL Normal 5.9-8.4 [facility] Comment on above: Performed By: #### L 500.4050, L501.4021, L100.0100 #### [facility] [address] [place], [address] Urea nitrogen [Mass/Vol] 9 mg/dL Normal 4-19 [facility] Comment on above: Performed By: #### L 500.4050, L501.4021, L100.0100 #### [facility] [address] [place], [address] Emergency Department Summary on 10-21-2024 Emergency Department Summary [facility] Medical Records Department [address] [place] [address] Emergency Department Summary 10/21/24 MR#: [id number] Acct: [id number] Name: KINSEY SOTELO Rep #: [id number] : 1990 34 From: [place] Land DO [...] following commands knew that she was at [facility] year is 2024 Skin: Warm, dry, tact [...] at 2 (more content not included)... Normal [facility] L501.4021on 10-21-2024 Trop T High Sen < 6 Normal <=14 [facility] Comment on above: Performed By: #### L 500.4050, L501.4021, L100.0100 #### [facility] Laboratory [address] [place], [address] Urinalysis, Completeon 10-21 BACTERIA RARE Normal None Seen [facility] Comment on above: Order Comment: CLEAN CATCH Performed By: #### L 400.0001 #### [facility] [address] [place], [address] EPI,SQUAMOUS 0-5 SEEN Normal 5-10 [facility] Comment on above: Order Comment: CLEAN CATCH Performed By: #### L 400.0001 #### [facility] [address] [place], [address] RBC 0-5 SEEN Normal 0-5 [facility] Comment on above: Order Comment: CLEAN CATCH Performed By: #### L 400.0001 #### [facility] [address] [place], [address] WBC 0-5 SEEN Normal 0-5 [facility] Comment on above: Order Comment: CLEAN CATCH Performed By: #### L 400.0001 #### [facility] [address] [place], [address] Mucus Ql (Urine sed) 0 SEEN Normal [facility] Comment on above: Order Comment: CLEAN CATCH Performed By: #### L 400.0001 #### [facility] [address] [place], [address] Absolute lymphocyte countOrd ered By: Dr. Christina on 10-14-2022 Lymphocytes Auto (Unsp spec) [#/Vol] 0.95 10*3/uL 0.83-4.51 [facility] Basophil percentageOrdered B y: Dr. Christina on 10-14-2022 Basophils/100 WBC (Bld) 0.3 % 0-1 [facility] Bilirubin [Mass/Vol] 0.20 mg/dL 0.20-1.00 [facility] Comment on above: For patients on eltr ombopag therapy, use of Dimension Pisek TBIL is not recommended. Chloride [Moles/Vol] 107 mmol/L 98-107 [facility] Eosinophils/100 WBC (Bld) 0.0 % 0-5 [facility] Glucose [Mass/Vol] 110 mg/dL 74-106 [facility] Comment on above: Fasting Glucose resu lt from 100 to 125 mg/dL suggests IMPAIRED HOMEOSTASIS per A.D.A. criteria. Neutrophils (Bld) [#/Vol] 13.5 10*3/uL 2.0-7.7 [facility] Neutrophils/100 WBC (Bld) 90.5 % 47-70 [facility] Potassium [Moles/Vol] 4.0 mmol/L 3.5-5.1 [facility] Protein [Mass/Vol] 8.9 g/dL 6.4-8.2 [facility] Sodium [Moles/Vol] 140 mmol/L 136-145 [facility] WBC (Bld) [#/Vol] 14.9 10*3/uL 4.4-11.0 [facility] Beta hCG serum qualOrdered B y: Dr. Christina on 10-14-2022 Beta HCG ( test) Ql Negative [facility] Blood erythrocytes count (nu mber/volume)Ordered By: Dr. Christina on 10-14-2022 RBC (Bld) [#/Vol] 5.23 10*6/uL 4.2-5.4 [facility] Blood hemoglobin measurement (mass/volume)Ordered By: Dr. Christina on 10-14-2022 Hemoglobin (Bld) [Mass/Vol] 16.4 g/dL 12.0-15.0 [facility] Blood lymphocytes/100 leukoc ytesOrdered By: Dr. Christina on 10-14-2022 Lymphocytes/100 WBC (Bld) 6.4 % 19-41 [facility] Blood monocytes/100 leukocyt esOrdered By: Dr. Christina on 10-14-2022 Monocytes/100 WBC (Bld) 2.3 % 0-10 [facility] Blood platelet mean volumeOr dered By: Dr. Christina on 10-14-2022 Platelet mean volume (Bld) [Entitic vol] 9.8 fL 6.2-12.0 [facility] Determination of erythrocyte mean corpuscular volume (MCV)Ordered By: Dr. Christina on 10-14-2022 MCV (RBC) [Entitic vol] 92.4 fL 81-99 [facility] Hematocrit Auto (Bld) [Volum e fraction]Ordered By: Dr. Christina on 10-14-2022 Hematocrit (Bld) [Volume fraction] 48.3 % 37-47 [facility] Laboratory - Chemistry and C hemistry - challengeOrdered By: Dr. Christina on 10-14-2022 ALP [Catalytic activity/Vol] 62 U/L 45-117 [facility] ALT [Catalytic activity/Vol] 24 U/L 13-56 [facility] CO2 [Moles/Vol] 28.0 mmol/L 21.0-32.0 [facility] Globulin (S) [Mass/Vol] 4.2 g/dL 2.2-4.2 [facility] Lipase [Catalytic activity/Vol] 58 U/L 13-75 [facility] Comment on above: Please note:LIPASE r evised reference range effective 22. New Lipase methodology. Expected to produce lower values than the previous assay method. NEW Reference Range: 13 - 75 U/L Urea nitrogen/Creatinine [Mass ratio] 15.2 mg/mg 10-20 [facility] Laboratory - Hematology and Cell countsOrdered By: Dr. Christina on 10-14-2022 Erythrocyte distribution width (RBC) [Entitic vol] 46.3 fL 35.1-43.9 [facility] Erythrocyte distribution width (RBC) [Ratio] 13.6 % 11.6-14.6 [facility] Immature granulocytes/100 WBC (Bld) 0.500 % 0.0-0.9 [facility] Comment on above: IG% - Immature Granu locytes (promyelocytes, myelocytes and metamyelocytes) > 1% indicates that a LEFT SHIFT is Present. MCH (RBC) [Entitic mass] 31.4 pg 27.0-32.0 [facility] Nucleated RBC/100 WBC (Bld) [Ratio] 0 % 0-5 [facility] MCHC Auto (RBC) [Mass/Vol]Or dered By: Dr. Christina on 10-14-2022 MCHC (RBC) [Mass/Vol] 34.0 g/dL 32-36 [facility] No Panel InformationOrdered By: Dr. Christina on 10-14-2022 Estimated Creatinine Clearance Calc 83.70 ml/min [facility] Estimated GFR (MDRD) Amer 91 mL/min >60 [facility] Comment on above: GFR Calc Estimated GFR (MDRD) Non-Af Amer 75 mL/min >60 [facility] Comment on above: Non- GFR Calc Platelets bldOrdered By: Dr. Christina on 10-14-2022 Platelets (Bld) [#/Vol] 392 10*3/uL 150-450 [facility] Serum or plasma albumin esteban urement (mass/volume)Ordered By: Dr. Christina on 10-14-2022 Albumin [Mass/Vol] 4.7 g/dL 3.2-5.0 [facility] Serum or plasma albumin/glob ulin mass ratioOrdered By: Dr. Christina on 10-14-2022 Albumin/Globulin [Mass ratio] 1.1 {ratio} 0.9-2.4 [facility] Serum or plasma calcium esteban urement (mass/volume)Ordered By: Dr. Christina on 10-14-2022 Calcium [Mass/Vol] 9.9 mg/dL 8.5-10.1 [facility] Serum or plasma creatinine m easurement (mass/volume)Ordered By: Dr. Christina on 10-14-2022 Creatinine [Mass/Vol] 0.92 mg/dL 0.55-1.02 [facility] Comment on above: The validity of the calculated GFR & GFRAA in patients over 70 years has not been determined. Clinical correlation is essential. Serum or plasma urea nitroge n measurement (mass/volume)Ordered By: Dr. Christina on 10-14-2022 Urea nitrogen [Mass/Vol] 14 mg/dL 7-18 [facility] Thin prep Papanicolaou smear with manual screeningOrdered By: Dr. Christina on 10-14-2022 Thin prep Papanicolaou smear with manual screening 17 U/L 15-37 [facility] Thin prep Papanicolaou smear with manual screening 5 5-15 [facility] Progress Noteon 01-16-2020 [employer] Supervisor Authentication Interface Message Text Consultation has been [...] of the above information. Please see the [facility] plan of care. The total patient time of the visit was 30 minutes, of which greater than 50% of the time was spent counseling and coordinating care. Discussion topics are listed above. Jaquelin Graf MD Normal [facility] Progress Noteon 01-10-2020 [employer] Supervisor Authentication Interface Message Text History for consult Normal [facility] Progress Noteon 01-02-2020 [employer] Supervisor Authentication Interface Message Text Dating for consult Normal [facility] URINE CULTURE,BACTERIALon URINE CULTURE,BACTERIAL PATIENT: KINSEY SOTELO LOCATION: [facility] [place] BILL#: [id number] : 89 AGE: SEX: F ORDERED BY: [...] DOSE DEPENDENT NS=NONSUSCEPTIBLE X=REPORTED IN ERROR Normal [facility] Comment on above: Performed By: #### U RINC #### [facility] [address] [place] [address] Beta HCG Quant, EDon 018 Beta HCG Quant, ED 0.1 mU/mL Normal <5.0 [facility] Comment on above: Result Comment: MARTHA JUAREZ Performed By: #### C BCDIF, CMP, LIPA, MG1, HCGED ####[facility] [address] [place] [phone] CBC and Differentialon 04-06 Abs Baso 0.04 k/uL Normal <0.11 [facility] Comment on above: Performed By: #### C BCDIF, CMP, LIPA, MG1, HCGED ####[facility] [address] [place] [phone] Abs [place] 0.82 k/uL Normal <0.87 [facility] Comment on above: Performed By: #### C BCDIF, CMP, LIPA, MG1, HCGED ####[place] [address] Abs Neut 10.09 k/uL High 1.45-7.50 [facility] Comment on above: Performed By: #### C BCDIF, CMP, LIPA, MG1, HCGED ####[place] [address] Basophils/100 WBC Auto (Bld) 0.3 % Normal [facility] Comment on above: Performed By: #### C BCDIF, CMP, LIPA, MG1, HCGED ####[place] [address] Eosinophils Auto #/vol (Bld) 0.23 10*3/uL Normal <0.46 [facility] Comment on above: Performed By: #### C BCDIF, CMP, LIPA, MG1, HCGED ####[place] [address] Eosinophils/100 WBC Auto (Bld) 1.7 % Normal [facility] Comment on above: Performed By: #### C BCDIF, CMP, LIPA, MG1, HCGED ####[place] [address] Erythrocyte distribution width Auto Ratio (RBC) 12.4 % Normal 11.5-15.0 [facility] Comment on above: Performed By: #### C BCDIF, CMP, LIPA, MG1, HCGED ####[place] [address] Hematocrit Auto Volume Fraction (Bld) 42.5 % Normal 36.0-46.0 [facility] Comment on above: Performed By: #### C BCDIF, CMP, LIPA, MG1, HCGED ####[place] [address] Hemoglobin mass conc (Bld) 14.2 g/dL Normal 11.5-15.5 [facility] Comment on above: Performed By: #### C BCDIF, CMP, LIPA, MG1, HCGED ####[facility] [address] [place] [address] Lymphocytes Auto #/vol (Bld) 2.48 10*3/uL Normal 1.00-4.00 [facility] Comment on above: Performed By: #### C BCDIF, CMP, LIPA, MG1, HCGED ####[place] [address] Lymphocytes/100 WBC Auto (Bld) 18.2 % Normal [facility] Comment on above: Performed By: #### C BCDIF, CMP, LIPA, MG1, HCGED ####[place] [address] MCH Auto Entitic mass (RBC) 31.5 pG Normal 26.0-34.0 [facility] Comment on above: Performed By: #### C BCDIF, CMP, LIPA, MG1, HCGED ####[place] [address] MCHC Auto mass conc (RBC) 33.4 g/dL Normal 30.5-36.0 [facility] Comment on above: Performed By: #### C BCDIF, CMP, LIPA, MG1, HCGED ####[place] [address] MCV Auto Entitic volume (RBC) 94.2 fL Normal 80.0-100.0 [facility] Comment on above: Performed By: #### C BCDIF, CMP, LIPA, MG1, HCGED ####[place] [address] Monocytes/100 WBC Auto (Bld) 6.0 % Normal [facility] Comment on above: Performed By: #### C BCDIF, CMP, LIPA, MG1, HCGED ####[place] [address] Neutrophils/100 WBC Auto (Bld) 73.8 % Normal [facility] Comment on above: Performed By: #### C BCDIF, CMP, LIPA, MG1, HCGED ####[place] [address] Platelet mean volume Auto Entitic volume (Bld) 10.0 fL Normal 9.0-12.7 [facility] Comment on above: Performed By: #### C BCDIF, CMP, LIPA, MG1, HCGED ####[facility] [address] [place] [address] Platelets Auto #/vol (Bld) 339 10*3/uL Normal 150-400 [facility] Comment on above: Performed By: #### C BCDIF, CMP, LIPA, MG1, HCGED ####[facility] [address] [place] [address] RBC Auto #/vol (Bld) 4.51 10*6/uL Normal 3.90-5.20 [facility] Comment on above: Performed By: #### C BCDIF, CMP, LIPA, MG1, HCGED ####[facility] [address] [place] [address] WBC Auto #/vol (Bld) 13.66 10*3/uL High 3.70-11.00 [facility] Comment on above: Performed By: #### C BCDIF, CMP, LIPA, MG1, HCGED ####[facility] [address] [place] [address] Comp Metabolic Panelon 04-06 Albumin mass conc 4.7 g/dL Normal 3.9-4.9 [facility] Comment on above: Performed By: #### C BCDIF, CMP, LIPA, MG1, HCGED ####[facility] [address] [place] [address] ALP enzyme act/vol 46 U/L Normal 34-123 [facility] Comment on above: Performed By: #### C BCDIF, CMP, LIPA, MG1, HCGED ####[facility] [address] [place] [address] ALT enzyme act/vol 11 U/L Normal 7-38 [facility] Comment on above: Performed By: #### C BCDIF, CMP, LIPA, MG1, HCGED ####[facility] [address] [place] [address] Anion gap 3 molar conc 14 mmol/L Normal 9-18 [facility] Comment on above: Performed By: #### C BCDIF, CMP, LIPA, MG1, HCGED ####[facility] [address] [place] [address] AST enzyme act/vol 19 U/L Normal 13-35 [facility] Comment on above: Performed By: #### C BCDIF, CMP, LIPA, MG1, HCGED ####[facility] [address] [place] [address] Bilirubin mass conc 0.3 mg/dL Normal 0.2-1.3 [facility] Comment on above: Performed By: #### C BCDIF, CMP, LIPA, MG1, HCGED ####[facility] [address] [place] [address] Calcium mass conc 9.5 mg/dL Normal 8.5-10.2 [facility] Comment on above: Performed By: #### C BCDIF, CMP, LIPA, MG1, HCGED ####[place] [address] Chloride molar conc 104 mmol/L Normal 97-105 [facility] Comment on above: Performed By: #### C BCDIF, CMP, LIPA, MG1, HCGED ####[facility] [address] [place] [address] CO2 molar conc 24 mmol/L Normal 22-30 [facility] Comment on above: Performed By: #### C BCDIF, CMP, LIPA, MG1, HCGED ####[facility] [address] [place] [address] Creatinine mass conc 0.60 mg/dL Normal 0.58-0.96 [facility] Comment on above: Performed By: #### C BCDIF, CMP, LIPA, MG1, HCGED ####[facility] [address] [place] [address] eGFR- Amer. >60 Normal [facility] Comment on above: Performed By: #### C BCDIF, CMP, LIPA, MG1, HCGED ####[facility] [address] [place] [address] GFR/1.73 sq M predicted among non-blacks MDRD vol rate/area (S/P/Bld) mL/min/{1.73_m2} Normal [facility] Comment on above: Result Comment: eGFR (Estimated [...] MG1, HCGED ####[facility] [address] [place] [phone] Glucose mass conc 93 mg/dL Normal 74-99 [facility] Comment on above: Result Comment: The [place] [employer] Association (ADA) provides guidance for cutoff [...] Standards of Medical Care in Diabetes 2016, [place] [employer]. Diabetes Care. 2016.39(Suppl 1). Performed By: #### C BCDIF, CMP, LIPA, MG1, HCGED ####[facility] [address] [place] [phone] Potassium molar conc 4.3 mmol/L Normal 3.7-5.1 [facility] Comment on above: Performed By: #### C BCDIF, CMP, LIPA, MG1, HCGED ####[facility] [address] [place] [phone] Protein mass conc 7.6 g/dL Normal 6.3-8.0 [facility] Comment on above: Performed By: #### C BCDIF, CMP, LIPA, MG1, HCGED ####[facility] [address] [place] [phone] Sodium molar conc 142 mmol/L Normal 136-144 [facility] Comment on above: Performed By: #### C BCDIF, CMP, LIPA, MG1, HCGED ####[facility] [address] [place] [phone] Urea nitrogen mass conc 9 mg/dL Normal 7-21 [facility] Comment on above: Performed By: #### C BCDIF, CMP, LIPA, MG1, HCGED ####[facility] [address] [place] [phone] ED NOTEon 04-06-2018 ED NOTE HNO ID: [id number] thor: Vesta KapoorRn) KEYANNA Reynaervice: NursingAuthor Type: Registered NurseType: ED NotesFiled: 04/06/2018 10:43 AMNote Text: Discharge instructions d/w pt at bedside. Stated understanding with nofurther questions for this nurse. Encouraged f/u with PCP and referringdoctors given. Stated understanding.Prescription( S) were given X1. [facility] ED NOTE HNO ID: [id number] Author: Vesta Carpio) Axel RN Service: Nursing Author Type: Registered Nurse Type: ED Notes Filed: 04/06/2018 9:06 AM Note Text: Junior moser rounds on pt at bedside to assess. [facility] ED PROV NOTEon 04-06-2018 Protein mass conc HNO ID: [id number] thor: Junior Teixeira (Pa)iService: Emergency MedicineAuthor Type: Physician AssistantType: ED Provider NotesFiled: 04/06/2018 10:32 AMNote Text:ED Provider NotePatient Name: Kinsey SoteloMRN: [id number] DATE: 04/06/18HistoryPatient presents with:Nausea AND IqapzwyaGnjxeokp89 year old healthy female presents to emergency [...] and in writing to patient(patient guardian / direct marketing representative), who verbalized understanding.This note was partially generated using [employer] voice recognition system,and there may be some [...] time of disposition: stableSIGNATURE: Karen Rossi (Titi) Ibromhuz28/16/18 1032 Normal [facility] Lipaseon 04-06-2018 Lipase enzyme act/vol 23 U/L Normal 16- [facility] Comment on above: Performed By: #### C BCDIF, CMP, LIPA, MG1, HCGED ####[facility] [address] [place] [phone] Magnesiumon 04-06-2018 Magnesium mass conc 1.9 mg/dL Normal 1.7-2.3 [facility] Comment on above: Performed By: #### C BCDIF, CMP, LIPA, MG1, HCGED ####[facility] [address] [place], [place] [phone] Vital Signs Date Time Vital Sign Value Performing Clinician Nell perez 02-09-2025 08:55-0400 Body mass index (BMI) [Ratio] 36.64 kg/m2 Fatemeh Haury LABORATORY CHEMICAL ASSISTANT.STRETCHER HELPER Work Phone: [facility] 02-09-2025 08:55-0400 Body weight 102.97 kg Fatemeh Haury LABORATORY CHEMICAL ASSISTANT.STRETCHER HELPER Work Phone: [facility] 02-09-2025 08:55-0400 Diastolic blood pressure 68 mm[Hg] Fatemeh Haury LABORATORY CHEMICAL ASSISTANT.STRETCHER HELPER Work Phone: [facility] 02-09-2025 08:55-0400 Systolic blood pressure 118 mm[Hg] Fatemeh Haury LABORATORY CHEMICAL ASSISTANT.STRETCHER HELPER Work Phone: [facility] 11-28-2024 10:20-0400 Body mass index (BMI) [Ratio] 34.86 kg/m2 Chiara Plotts LABORATORY CHEMICAL ASSISTANT.CNM Work Phone: [facility] 11-28-2024 10:20-0400 Body weight 97.98 kg Chiara Plotts LABORATORY CHEMICAL ASSISTANT.CNM Work Phone: [facility] 11-28-2024 10:20-0400 Diastolic blood pressure 74 mm[Hg] Chiara Plotts LABORATORY CHEMICAL ASSISTANT.CNM Work Phone: [facility] 11-28-2024 10:20-0400 Systolic blood pressure 118 mm[Hg] Chiara Plotts LABORATORY CHEMICAL ASSISTANT.CNM Work Phone: [facility] 10-26-2024 09:30-0400 Body height 167.6 cm Fatemeh Haury LABORATORY CHEMICAL ASSISTANT.STRETCHER HELPER Work Phone: [facility] 10-26-2024 09:30-0400 Body mass index (BMI) [Ratio] 34.7 kg/m2 Fatemeh Haury LABORATORY CHEMICAL ASSISTANT.STRETCHER HELPER Work Phone: [facility] 10-26-2024 09:30-0400 Body weight 97.52 kg Fatemeh Haury LABORATORY CHEMICAL ASSISTANT.STRETCHER HELPER Work Phone: [facility] 10-26-2024 09:30-0400 Diastolic blood pressure 70 mm[Hg] Fatemeh Holt APRN.CNP Work Phone: [facility] 10-26-2024 09:30-0400 Systolic blood pressure 114 mm[Hg] Fatemeh Holt APRN.CNP Work Phone: [facility] 10-14-2022 15:12-0400 Diastolic blood pressure 99 mm[Hg] [facility] 10-14-2022 15:12-0400 Heart rate 97 /min [facility] 10-14-2022 15:12-0400 Respiratory rate 14 /min [facility] 10-14-2022 15:12-0400 SaO2% (BldA) [Mass fraction] 97 % [facility] 10-14-2022 15:12-0400 Systolic blood pressure 131 mm[Hg] [facility] 10-14-2022 11:45-0400 Body height 167.64 cm [facility] 10-14-2022 11:45-0400 Body mass index (BMI) [Ratio] 29.2 kg/m2 [facility] 10-14-2022 11:45-0400 Body temperature 98 [degF] [facility] 10-14-2022 11:45-0400 Body weight 82.1 kg [facility] Encounters Encounter Date Encounter Type Care Provider Facility Start: 04-26-2025 End: 04-26-2025 ambulatory JAILENE WHITE Facility:[facility] Start: 04-12-2025 End: 04-12-2025 ambulatory LEONID CAMPBELL Facility:[facility] Start: 04-10-2025 End: 04-10-2025 ambulatory MERVIN COHN Facility:[facility] Start: 03-29-2025 End: 03-29-2025 ambulatory MERVIN COHN Facility:[facility] Start: 03-13-2025 End: 03-13-2025 ambulatory CHIARA JACQUES Facility:[facility] Start: 02-09-2025 End: 02-09-2025 Patient encounter procedure Fatemeh Holt APRN.STRETCHER HELPER Work Phone: OB/Gynecology Comment on above: Encounter [...] second trimester (HCC) Start: 02-09-2025 End: 02-09-2025 [facility] Facility:[facility] Start: 01-09-2025 End: 01-09-2025 Patient encounter procedure [employer] [facility] Comment on above: Encounter for anatomic survey (HCC) (Primary Dx); 18 weeks gestation of (HCC); Obesity affecting in second trimester, unspecified obesity type (HCC) Start: 01-09-2025 End: 01-09-2025 ambulatory CHIARAVAUGHN JACQUES Facility:[facility] Start: 11-30-2024 End: 11-30-2024 Follow-up encounter Chiara Jacques APRN.JURGEN Work Phone: OB/Gynecology Start: 11-28-2024 End: 11-28-2024 [facility] CHIARA JACQUES Facility:[facility] Start: 11-28-2024 End: 11-28-2024 Patient encounter procedure Chiara Jacques LABORATORY CHEMICAL ASSISTANT.DAVIDM Work Phone: OB/Gynecology Comment on above: Encounter [...] gestation of (HCC) Start: 11-28-2024 End: [facility]24 [facility] Start: 11-07-2024 End[facility] Start: 11-02-2024 End: 01-02-2025 Follow-up encounter Fatemeh [...] Start: 10-26-2024 End: 10-26-2024 ambulatory FATEMEH HOLT Facility:[facility] Start: 10-21-2024 End: 10-21-2024 Emergency department patient visit [facility] Facility:[facility] Start: 10-14-2022 End: 10-14-2022 [facility] [facility] Start: 04-06-2018 End: 04-06-2018 Emergency department patient visit [facility] Procedures Date Procedure Procedure Detail Performing Clinician Start: 01-09-2025 Us preg uterus after 1st trimest 06/22 gestation Fatemeh Holt APRN.CNP Work Phone: Start: 11-28-2024 Us preg uterus after 1st trimest 06/22 gestation Fatemeh Holt APRN.CNP Work Phone: Start: 11-07-2024 Antibody screen FATEMEH KERN Comment on above: Order Comment: Speci men Type: BLOOD SPECIMEN Ordering Facility: [facility] Address: [address] [place] [address] Performed By: #### T SPN #### [facility]LO[facility] B[facility] CLIA [id number] [address] [place], [place] [id number] OF [place] Start: 10-26-2024 Us uterus limited 1/> fetuses Fatemeh Holt PARRIS Work Phone: Start: 07-25-2019 Follow-up visit Plan of Treatment Date Care Activity Detail Author Start: 01-13-2067 RSV Vaccine (1 - 1-d ose 75+ series) RSV Vaccine (1 - 1-dose 75+ series) [facility] Start: 10-26-2029 Screening for malign ant neoplasm of cervix Cervical Cancer Screening [facility] Start: 04-13-2025 RSV Vaccine (1 - Ris k 1-dose series) RSV Vaccine (1 - Risk 1-dose series) [facility] Start: 03-13-2025 End: 03-13-2025 Patient encounter procedure 03/13/2025 9:15 AM EDT Routine Office Visit OB/Gynecology [address] [place], [place] [id number] Anita Sethi APRN.CN [address] [place], [place] [id number] OB OB/Gynecology Comment on above: OB Start: 02-20-2025 Influenza vaccination [facility] Start: 02-09-2025 End: 05-11-2025 ANEMIA REFLEX PANEL ANEMIA REFLEX PANEL Lab Routine Encounter for supervision of high risk in second trimester, antepartum (HCC) 23 weeks gestation of (HCC) Expected: 02/09/2025, Expires: 05/11/2025 [facility] Comment on above: Expected: 02/09/2025 , Expires: 05/11/2025 Start: 02-09-2025 End: 02-09-2026 GESTATIONAL GLUCOSE SCREEN, 1-HOUR, 50 GRAM, NON-FASTING GESTATIONAL GLUCOSE SCREEN, 1-HOUR, 50 GRAM, NON-FASTING Lab Routine Encounter for supervision of high risk in second trimester, antepartum (HCC) 23 weeks gestation of (HCC) Screening for diabetes mellitus Expected: 02/09/2025, Expires: 02/09/2026 [facility] Work Phone: Comment on above: Expected: 02/09/2025 , Expires: 02/09/2026 Start: 02-09-2025 End: 02-09-2026 SYPHILIS TREPONEMAL W/REFLEX SYPHILIS TREPONEMAL W/REFLEX Lab Routine Encounter for supervision of high risk in second trimester, antepartum (HCC) 23 weeks gestation of ([facility]) Expected: 02/09/2025, Expires: 02/09/2026 [facility] Comment on above: Expected: 02/09/2025 , Expires: 02/09/2026 Start: 02-09-2025 End: 05-11-2025 THYROGLOBULIN ANTIBODY THYROGLOBULIN ANTIBODY Lab Routine Low TSH level Expected: 02/09/2025, Expires: 05/11/2025 [facility] Comment on above: Expected: 02/09/2025 , Expires: 05/11/2025 Start: 02-09-2025 End: 02-09-2025 Patient encounter procedure 02/09/2025 9:00 AM EDT Routine Office Visit OB/Gynecology [address] [place], [place] [id number] Fatemeh Holt APRN.STRETCHER HELPER [address] [place] [address] OB OB/Gynecology Comment on above: OB Start: 01-09-2025 End: 01-09-2025 Patient encounter procedure [facility] Comment on above: ANATOMY OB Start: 11-28-2024 End: 02-27-2025 Chromosome 21 trisomy [Presence] in Blood or Tissue by Cytogenetics [facility] Comment on above: Expected: 11/28/2024 , Expires: 02/27/2025 Start: 11-28-2024 End: 02-27-2025 THYROID PEROXIDASE ANTIBODY [facility] Work Phone: Comment on above: Expected: 11/28/2024 , Expires: 02/27/2025 Start: 11-28-2024 End: 02-27-2025 THYROID STIMULATING IMMUNOGLOBULIN BLOOD [facility] Comment on above: Expected: 11/28/2024 , Expires: 02/27/2025 Start: 11-28-2024 End: 11-28-2024 Patient encounter procedure Maternal Medicine Comment on above: with uncer tain dates in first trimester (HCC) [Z34.91] 1st OB - LMP 09/01/24 Start: 10-26-2024 End: 01-25-2025 ANEMIA REFLEX PANEL ANEMIA REFLEX PANEL Lab Routine with uncertain dates in first trimester (HCC) Expected: 10/26/2024, Expires: 01/25/2025 [facility] Work Phone: Comment on above: Expected: 10/26/2024 , Expires: 01/25/2025 Start: 10-26-2024 End: 01-25-2025 Comprehensive metabolic 2000 panel - Serum or Plasma COMPREHENSIVE METABOLIC PANEL Lab Routine History of gestational hypertension Expected: 10/26/2024, Expires: 01/25/2025 [facility] Comment on above: Expected: 10/26/2024 , Expires: 01/25/2025 Start: 10-26-2024 End: 01-25-2025 Hemoglobin A1c in Blood HEMOGLOBIN A1C Lab Routine with uncertain dates in first trimester (HCC) Expected: 10/26/2024, Expires: 01/25/2025 [facility] Comment on above: Expected: 10/26/2024 , Expires: 01/25/2025 Start: 10-26-2024 End: 01-25-2025 Hepatitis B virus surface Ag [Presence] in Serum HEPATITIS B SURFACE ANTIGEN Lab Routine with uncertain dates in first trimester (HCC) Expected: 10/26/2024, Expires: 01/25/2025 [facility] Comment on above: Expected: 10/26/2024 , Expires: 01/25/2025 Start: 10-26-2024 End: 01-25-2025 Hepatitis C virus Ab [Presence] in Serum HEPATITIS C ANTIBODY IA WITH CONFIRMATION Lab Routine with uncertain dates in first trimester (HCC) Expected: 10/26/2024, Expires: 01/25/2025 [facility] Comment on above: Expected: 10/26/2024 , Expires: 01/25/2025 Start: 10-26-2024 End: 01-25-2025 HIV 1+2 Ab [Presence] in Serum or Plasma by Immunoassay HIV 1/2 COMBO WITH REFLEX TO DIFFERENTIATION Lab Routine with uncertain dates in first trimester (HCC) Expected: 10/26/2024, Expires: 01/25/2025 [facility] Comment on above: Expected: 10/26/2024 , Expires: 01/25/2025 Start: 10-26-2024 End: 10-26-2025 OBSTETRIC ULTRASOUND WHI OBSTETRIC ULTRASOUND WHI Anc Imaging Routine with uncertain dates in first trimester ([facility]) Expected: 10/26/2024, Expires: 10/26/2025 [facility] Comment on above: Expected: 10/26/2024 , Expires: 10/26/2025 Start: 10-26-2024 End: 01-25-2025 Protein/Creatinine [Mass Ratio] in Urine PROTEIN / CREATININE RATIO Lab Routine History of gestational hypertension Expected: 10/26/2024, Expires: 01/25/2025 [facility] Comment on above: Expected: 10/26/2024 , Expires: 01/25/2025 Start: 10-26-2024 End: 01-25-2025 RUBELLA IGG ANTIBODY RUBELLA IGG ANTIBODY Lab Routine with uncertain dates in first trimester ([facility]) Expected: 10/26/2024, Expires: 01/25/2025 [facility] Comment on above: Expected: 10/26/2024 , Expires: 01/25/2025 Start: 10-26-2024 End: 01-25-2025 SYPHILIS TREPONEMAL W/REFLEX SYPHILIS TREPONEMAL W/REFLEX Lab Routine with uncertain dates in first trimester ([facility]) Expected: 10/26/2024, Expires: 01/25/2025 [facility] Comment on above: Expected: 10/26/2024 , Expires: 01/25/2025 Start: 10-26-2024 End: 01-25-2025 Thyrotropin [Units/volume] in Serum or Plasma THYROID STIMULATING HORMONE Lab Routine History of gestational hypertension Expected: 10/26/2024, Expires: 01/25/2025 [facility] Comment on above: Expected: 10/26/2024 , Expires: 01/25/2025 Start: 10-26-2024 End: 01-25-2025 TYPE + SCREEN TYPE + SCREEN Blood Bank Routine with uncertain dates in first trimester ([facility]) Expected: 10/26/2024, Expires: 01/25/2025 [facility] Comment on above: Expected: 10/26/2024 , Expires: 01/25/2025 Start: 02-21-2024 Covid-19 Vaccine ( season) Covid-19 Vaccine () [facility] Start: 10-14-2022 [facility] Start: 01-13-2019 HPV Vaccine (1 - 3-d ose SCDM series) HPV Vaccine (1 - 3-dose SCDM series) [facility] Start: 01-13-2013 Screening for malign ant neoplasm of cervix Cervical Cancer Screening [facility] Start: 01-13-2011 Hepatitis B Vaccine (1 of 3 - 19+ 3-dose series) Hepatitis B Vaccine (1 of 3 - 19+ 3-dose series) [facility] Start: 01-13-2011 Urine microalbumin profile DTaP,Tdap,Td Vaccine (1 - Tdap) [facility] Start: 01-13-2010 Anxiety Screening Anxiety Screening [facility] Start: 01-13-2010 Depression Screening Depression Scre ening [facility] Start: 01-13-2010 Hepatitis C screening Hepatitis C Sc reening [facility] Start: 01-13-2010 HIV screening HIV Screening [facility] Bacteria identified in Urine by Culture BACTERIAL CULTURE, URINE Microbiology Routine with uncertain dates in first trimester (HCC) 10/26/2024 10:09 AM EDT [facility] Bilirubin measuremen t, urine [facility] Chlamydia trachomatis+Neisseria gonorrhoeae DNA [Presence] in Unspecified specimen by MICHAEL with probe detection GONORRHEA/CHLAMYDIA NAAT Lab Routine with uncertain dates in first trimester (HCC) Screen for STD (sexually transmitted disease) 10/26/2024 10:09 AM EDT [facility] Hemoglobin [Presence ] in Urine [facility] Measurement of keton es in urine using dipstick [facility] Microscopic urinalysis [facility] PAP TEST PAP TEST Lab Rou liliana with uncertain dates in first trimester (HCC) Screening for cervical cancer Encounter for screening for human papillomavirus (HPV) 10/26/2024 10:09 AM EDT [facility] Patient Education ED Abdominal P ain Unkn Cause Fem ED Vomiting (Adult) [facility] Work Phone: Patient referral [facility] Work Phone: pH of Urine [facility] Specific gravity of Urine [facility] TRICHOMONAS VAGINALI S NAAT TRICHOMONAS VAGINALIS NAAT Lab Routine with uncertain dates in first trimester (HCC) Screen for STD (sexually transmitted disease) 10/26/2024 10:09 AM EDT [facility] Urinalysis, blood, qualitative [facility] Urine dipstick for glucose [facility] Urine dipstick for leukocyte esterase [facility] Urine dipstick for nitrite [facility] Urine dipstick for protein [facility] Urine examination [facility] Urine microscopy: epithelial cells [facility] Urine Microscopy: wh ite cells [facility] Urobilinogen [Presen ce] in Urine [facility] Payers Date Payer Category Payer Self-pay [id number] 2024 Private Health Insurance BERNARDA hobbs [id number] 2024 Private Health Insurance [id number] Unknown [facility] [id number] Unknown [facility] [id number] Unknown [id number] Social History Date Type Detail Facility Start: 10-14-2022 [facility] ever smoked [facility] Start: 02-23-2020 None [facility] Start: 1990 Sex Assigned At Female W [facility] Start: 10-25-2024 Tobacco smoking stat us NHIS Ex-smoker [facility] History of tobacco use Current smoker [facility] History of tobacco use Cigarette Smoker [facility] Start: 10-25-2024 Tobacco use and exposure Smokeless tobacco non-user [facility] Start: 10-26-2024 End: 02-09-2025 Alcoholic beverage intake Ex-drinker (finding) [facility] Start: 10-26-2024 End: 11-07-2024 History of Social function [facility] Start: 10-26-2024 End: 11-07-2024 Tobacco use panel [facility] Start: 10-25-2024 Education 13 [facility] Start: 09-15-2024 [facility] Start: 10-19-2024 Gender identity Identifies as female gender (finding) [facility] Start: 10-19-2024 Sexual orientation Heterosexual (fin ruba) [facility] Start: 05-23-2012 National Score (1-100), lower number is lower risk 75 [facility] NEGATED: Highlighted row [facility] Goals Date Patient Goal Desired Activity /State Personal health goal Clinical Notes 10-14-2022 to 03-29-2025 Quick Notes - Fatemeh Holt APRN.[facility] - 02/09/2025 8:58 AM EDTPrenatal Quick Notes - Fatemeh Holt APRN.[facility] - 02/09/2025 8:58 AM EDTPatient InstructionsPatient Instructions Note Date & Type Note Facility 03-29-2025 Note HNO ID: [id number] Author: CANDY DESIR MA Service: ? Author Type: Atmospheric Technician Type: Progress Notes Filed: 03/29/2025 11:38 Note [...] severely ill: Yes Patient denies history of Guillain-[place] Syndrome (a severe paralytic illness): Yes Tdap Adacel injection was given without incident. See immunizations for details of immunizations administered today. VIS sheet provided: Yes Provider Dr Cohn was present in office at time of injection. Candy Desir MA [facility] 02-09-2025 Progress note Formatting of t his [...] affecting in first trimester, unspecified obesity type ([facility]) - ICD9: 649.13, ICD10: O99.211 - Pre [...] weeks or sooner as needed. Fatemeh Holt APRN.STRETCHER HELPER [facility] 02-09-2025 Miscellaneous Notes EH - [...] of high risk in second trimester, antepartum ([facility]) - ICD9: V23.9, ICD10: O09.92 (primary diagnosis) - Continue PNV and LDA 2. 23 weeks gestation of ([facility]) - ICD9: V22.2, ICD10: Z3A.23 - GTT, CBC, RPR next visit - Anatomy ultrasound reviewed 3. Low TSH level - ICD9: 794.5, ICD10: R79.89 - Recheck with labs 4. Obesity affecting in first trimester, unspecified obesity type ([facility]) - ICD9: 649.13, ICD10: O99.211 - Pre BMI 34 - Reviewed weight gain guidelines 5. History of delivery - ICD9: V13.21, ICD10: Z87.51 - 36 weeks in 2019 6. Anxiety disorder affecting , antepartum ([facility]) - ICD9: 648.43, 300.00, ICD10: O99.340, F41.9 - Reports mood stable, but has had some increased stress with recent loss of family member 7. History of gestational hypertension - ICD9: V13.29, ICD10: Z87.59 - Continue LDA, recommend 162 mg nightly PTL precautions reviewed. RTO in 4 weeks or sooner as needed. Fatemeh Holt APRN.STRETCHER HELPER documented in this encounter [facility] 02-09-2025 Instructions Johana Goetz MA - 02/09/2025 8:53 AM EDT SEQUENTIAL SCREENINGS [facility] offers sequential screenings for women [...] It will require an appointment with our optical manufacturing technician. This is not an ultrasound performed [...] the above symptoms, contact our office at [phone] and ask to speak with a nurse. After hours, you can call doctors registry at [phone] OR call [facility] at [phone] and ask to have the doctor manager location paged. If you consider this an emergency, dial [phone]- or go to your nearest emergency department. NEED HELP? Are you dealing with a violent or abusive relationship? Are you a victim of rape or sexual assult? Call [facility] ([place]) 24 hour Crisis Hotline: 365.346.9573 or 446-855-3763. MANUAL Your Guide to a Healthy manual is now on-line. Visit [email or web address] ncyGuide to download your free copy Oral Glucose Tolerance Test During Your provider has ordered an oral glucose tolerance test. For more information: [facility] Oral Glucose Tolerance Test How [...] you need an appointment. Safe Sleep for [place] For more information: Healthychildren.org Safe Sleep Healthy babies are safest when sleeping on their backs at nighttime and during naps. Side sleeping is not as safe as back sleeping and is not advised. documented in this encounter [facility] 11-30-2024 Note Addended by: CHIARA JACQUES on: 11/30/2024 11:54 AM Modules accepted: Orders [facility] 11-30-2024 Miscellaneous Notes Addended by: CHIARA JACQUES on: 11/30/2024 11:54 AM Modules accepted: Orders Addended by: VERENA AMBRIZ on: 11/30/2024 10:02 AM Modules accepted: Orders documented in this encounter [facility] 11-30-2024 Note Addended by: VERENA AMBRIZ on: 11/30/2024 10:02 AM Modules accepted: Orders [facility] 11-28-2024 Progress note Formatting of [...] ANTIBODY - THYROID STIMULATING IMMUNOGLOBULIN BLOOD - [id number] PLUS - Continue vitamins daily - Start ASA nightly - RTO 4 weeks or sooner if needed Chiara Jacques APRN.CNM [facility] 11-28-2024 Miscellaneous Notes S: Kinsey [...] ANTIBODY - THYROID STIMULATING IMMUNOGLOBULIN BLOOD - [id number] PLUS - Continue vitamins daily - Start ASA nightly - RTO 4 weeks or sooner if needed Chiara Jacques APRN.CNM documented in this encounter [facility] 11-10-2024 Note HNO ID: [id number] Author: MADY SANCHEZ MD Service: ? Author [...] further questions. Sincerely, Mady Sanchez MD, ARIC [facility] 11-09-2024 Telephone encounter Note Spoke to lab client services and they are adding on the T4 lab to her 11/07/24 blood work. Verena Ambriz RN [facility] 11-09-2024 Miscellaneous Notes Spoke to lab client services and they are adding on the T4 lab to her 11/07/24 blood work. Verena Ambriz RN Please call lab to see if T4 can be added on to blood work. Fatemeh Holt APRN.ANNETTE documented in this encounter [facility] 11-09-2024 Telephone encounter Note Please call lab to see if T4 can be added on to blood work. Fatemeh Holt APRN.ANNETTE [facility] 10-25-2024 Note HNO ID: [id number] Author: FATEMEH HOLT APRN.CNP Service: ? Author Type: Nurse Practitioner Type: Progress Notes Filed: 10/26/2024 10:40 Note Text: Conveyor Belt Operator offered: Patient declines. INITIAL OB ASSESSMENT HPI: [...] all that apply)? 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 [facility] 10-25-2024 History of Present illness Narrative Conveyor Belt Operator offered: Patient declines. INITIAL OB ASSESSMENT HPI: [...] all that apply)? 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 As applicable, any other physician, advance practice provider, medical student, or other health professional student that will be observing or involved in the sensitive examination for educational or training purposes was discussed with the Patient or Authorized Track Fitter. The Patient or Authorized Track Fitter has agreed to proceed with the sensitive [...] Your guide to a health and the Fueler. Discussed hemoglobin electrophoresis. Patient: Declines Reviewed midwifery and member of parliament services that are available. 2) Screening: Hemoglobin [...] (28-30 weeks): [] Consent [] Contraception [] Book Sewing Machine Operator [] TeamBirth handout Third trimester (36-40 weeks): [...] Holt APRN.CNP Anxiety Disorder Affecting , Antepartum ([facility]) - 10/26/2024 Comment: October 26, 2024 Mental health resources provided. Declines medication at this time. Considering counseling. To update throughout . Fatemeh Holt APRN.CNP Obesity Affecting in First Trimester ([facility]) - 10/26/2024 Comment: October 26, 2024 Pre BMI 30. 25 lb weight gain at 7 weeks. Reviewed weight gain recommendations. Fatemeh Holt APRN.CNP Constipation During in First Trimester ([facility]) - 10/26/2024 Comment: October 26, 2024 Reviewed Colace, Miralax PRN Fatemeh Holt APRN.CNP Nausea and Vomiting During ([facility]) - 10/26/2024 Comment: 10/26/24 Vitamin B6 doses reviewed. To notify if prescription is needed. Fatemeh Holt APRN.CNP Follow up in 4 weeks or sooner prn. Plan for NT scan between 12w0d and 13w6d gestation. Fatemeh Holt APRN.STRETCHER HELPER documented in this encounter [facility] 10-25-2024 Instructions Fatemeh Holt APRN.CNP - 10/25/2024 3:00 PM EDT Images from the original note were not included. Please select the following link to access the [facility] Your Guide to a Healthy . [email or web address] Please select the following link to access the [facility] Your Guide to a Healthy . [email or web address] Psychotherapy Services at [facility] Call Behavioral Health Access Line at [phone] to schedule Individual psychotherapy In-person or virtual Wait time for first evaluation may be 12 or more weeks. Wait list spots may be available. Due to the high volume of patients this option is recommended if you are looking for short term acute symptom coping strategies. 7-614-7-TNTM1UYSB - [place] Maternal Mental Health Hotline If you are in suicidal crisis, please call or text 2-394-388-TALK ( ) or visit the National Suicide Prevention Lifeline website. m[facility]b.[facility].gov If you are in crisis, call 911 or go to your nearest Emergency Department Here are some links for wonderful Providers here in the community and surrounding areas. Do not hesitate to contact their offices, many are offering virtual visits during this time. Psychotherapy Services outside of [facility] Support International Online Provider Directory https://MediTAP.Zula/ - can assist in finding providers in your area that might be more extensive then the list below. [facility] [place], [place] [address] [place], [facility] [facility] [address] [place] [address] [facility] [address] [place] [address] [facility] [address] [place] [id number] Kathrin Gr MD [address] [place] [address] [facility] [address] [facility], [address] [place] [address] [facility] [address] [place] [address] [facility] [place] / [place] [phone]/ [phone] Aniya Leavitt [address] [facility] [phone] [facility] [place] / [place] [phone] [facility] services of [facility] [address] [place] [address]/ [facility] [phone] GLORIA Whiteside, CASPER [facility] Workshops, telehealth and at home visits. [phone] [facility] counseling [place] 20 locations [place], [place], [place], [place], [place], [place], [place], [facility], [place], [place], [place], [place], [place], [place], [facility], [place], [place] ,[facility], [place], [place],[facility], [facility] [place], [place], [facility], [facility], [place] www.[facility] [phone] Psychotherapy resources outside of [facility] are listed below [facility] Web: https://www.StartBull/ Support International Online Provider Directory https://LUVHAN/ [facility] https://Optify/ SurroundsMe for Behavioral Health and Wellness Web: https://Platter/ Liquiverse for Effective Living Web: https://Hatteras Networksliving.Zula/ LifeStance Web: https://EyeJot.Zula/location/s keli/[place]/ [facility] Web: https://www.CounterStormzuni [facility].or / [facility] Web: https://BotScanner.org/ Recovery Resources Mental health and substance abuse help Web: https://www.skillsbite.coms.MTM Laboratories & RESOURCES Support International Direct peer support and connection to professional resources Non-Emergency Helpline Phone: / Text: [phone] Web: https://www..net/ Online Provider Directory: https://LUVHAN/ Online Support Meetings: https://www..net/get-he lp/yii-fxgigu-lvzltds-meetings/ SONALI Baby and Well Logging Operator Mud Analysis Services Web: https://www.Quippi/ MotherToBaby Expert information on medication use during and Text: [phone] Web: https://motherWolfe Diversified Industries.org/ NATIONAL REGISTRY FOR PSYCHIATRIC MEDICATIONS Currently studying the safety of antidepressants, ADHD medications and atypical antipsychotics taken during TO PARTICIPATE CALL TOLL-FREE: Web: https://womenentalhealth.org/re search/pregnancyregistry/ Support Groups: [facility]- Follow on facebook Baby Bistro support group led by [facility] department [facility] Mamas - Support Group [facility].org The POEM support group [phone] Www.poMindBitesonline.org Follow on facebook - MARIKA barrios Online support meetings PSI https://www..net/get-he lp/sxm-gaihtc-uyignpk-meetings/ [facility] mommy and me virtual support group 11:30-1pm Support for mothers and new babies and toddlers Flournoy childbirth education: Childbirth @[facility].org or call [phone] CRISIS: CRISIS HOTLINE [phone], 911 or go to the nearest . [facility] [phone] / [facility] [phone] https://www.[facility].org Crisis text line text the word HOME to 768120 [facility] Counseling [address] [facility] [address] www.SaferTaxi Idania Pineda clinical counseling [address] [address] www.MENA OPPORTUNITIESriVumanity Media.Zula [phone] Holding space psychotherapy Shaila Mike PHOTO BOOTH OPERATOR CFA-S [address] [facility] www.Recipharm [phone]/ Karen [phone] They all offer virtual. All work with trauma Support groups Online support meetings PSI https://www..net/get-he lp/kvn-osfgzk-fivwxft-meetings/ Here are the support groups they offer: Support of parents of 1 to 4 years old children POEM ( Outreach and Encouragement for Moms) offers free support for mothers experiencing depression, anxiety, and other mood and anxiety disorders. Masks are recommended but not required. No pre-registration required. Babies in arms welcome. meetings now take place on the and Thursday of each month Location: [facility] [address] [place] [address] Room 122 (library room) 7-8:00 p.m. When you enter the jehovah's witness parking lot off of [address] the entrance door closest to our meeting room is on the front of the building toward the right. For those who are more comfortable with a virtual platform, POEM offers online support group options several days of the week. To register for an online group or to find out more about PO, website at: https://aohio.org/get-help/medisys health networkxzmi-iwledt-gbesjl/pomg-services/ offer a confidential helpline: private Facebook group is called MARIKA Barrios Here are the groups they offer: Traumatic childbirth resources: Http://pattch.org/ https://www.Revolution PrepjaquelineAssignment Editor.Zula/ Name Location (s) Phone # (s) Services Website [facility] [address] [place], [place] - [phone]; [address] [phone] In-Person GROUPS INDIVIDUAL THERAPY MATERNAL-INFANT MENTAL HEALTH MEDICATION MANAGEMENT PLAY AND ART THERAPY TELETHERAPY https://www.StartBull/s ervices/ [facility] [place] BERNARD? [address] [place], [place] [address] ? [address], [address] [place], [place] [address] ? WU [address] [place] [address]? Grief Support Groups Individual Grief Counseling Spiritual Care Memorial Events https://tlaat.[facility].org/grief-services [facility] [address] [place] [address]; ; Email: brittni@[email or web address] Women's Mental Health; Couples Counseling; Trauma (EMDR); Stress Management; Mood and Anxiety Related Disorders- and much more https://www.radRounds Radiology Network/ LifeStance Numerous as they have contract providers: access website to find specific providers near you Counseling including CBT and EMDR as well as many more modalities; Medication Management; Telehealth and In-Person https://Sidestage/ [facility] [address] [place], [place] [address]; [phone] Personal, Family and Group Therapy; Psychological Testing and Diagnosis; Medication Management; Life and Career Coaching; Psychoanalysis; Literacy Testing; Yoga and Meditation https://Platter/ Awareness Card [facility] [address] [facility] [address], [place] [address] [facility] 448 ; [facility], [address] [place] [address]; Office # for both sites: Individual and Couples Counseling https://www.Asoka.Zula/ paymentinsurance.html OCD & Anxiety [facility] [address] [facility], [address], [place] [address]; Specialize in Cognitive-Behavioral Therapy (CBT) for the treatment of anxiety disorders across the lifespan. TELEHEALTH ONLY. https://ocdandanxietycenteroCV Properties.Zula/faqs [facility] [address] [facility] [address]th [place], [address] [place] [address] [facility] [place] [address] [place] [address] [facility] [place], [address] [place] [address] [address]. [place], [place], [address] [address], [id number] [place] [address] [facility] [place], [address] [address] [place] [address], [address] Transportation Services To minimize patient barriers, [facility] provides transportation services to patients who [...] assistance Substance abuse treatment Medication assisted treatment https://www.[facility].or g/mental-health/ [facility] OFFICE AT [facility] [address] [place] [address] [facility] OFFICE [address] [place] [address] [facility] OFFICE [address] [place] [address] [facility] OFF[facility] (at [facility]) [address] [place] [address] [facility] & HIV SCREENING [address] [place] [address] [facility] [facility] [address] [place] [address] Behavioral Health Urgent Care: [facility] Sites Counseling Indvidual and Group Medication Management Case Management benefits applications housing assistance Substance abuse treatment Medication assisted treatment Employment Services/ Job Training https://theFramebenchflio.org/ Recovery Resources [address] [place], [place] [address]: P: [phone] [address] [facility], [address], [place], [place] [address] P: [phone] Our services include: Addiction Mental Health Treatment Assessment Psychiatry Medical Care Employment Housing Drug and Alcohol Prevention HIV/AIDS Prevention https://www.recres.org/ [facility] [place] [address] [place] [address] [place], [place] [address] [place] [address] [place] [address] [place] [address] [facility] [address] [place] [address] [place] [address] [place] [address] TMS Therapy/ Counseling Psychocological Testing for ADHD Medication Management In-Person/ Telemedicine https://www.makerSQR.com/kim ents-depression [facility] [address], [place] [address] Neuropsychological Testing For ADHD https://www.memoryandpsych.com/ [facility] - Main Office [address] [place] [address] [address] Providing hxcz-ir-skiq and telehealth services. Adult Case Management Community Education and Prevention Employment Outpatient Treatment - Counseling & Psychotherapy Psychiatric Services http://www.ccc.org/ [facility] [place] [address] [place] [address] [facility]) [address] [place] [address] Virtual Appointments! Now offering safe and convenient virtual client appointments to anyone in [place]! Individual Therapy Couples/Relationship Therapy Trauma/EMDR Therapy Art Therapy Play Therapy Locks Inspector Support: Parenting Skills, Parent Child Interaction Therapy, Parent Interaction Therapy Meditation Dietitian/Convalescent Sitter Services Group Therapy Yoga https://www.InternetArray/ Janis Mendiola [phone] Private Practice: Telehealth Only Specializes in EMDR for Trauma None MORNING SICKNESS IN by Jolene Nava M.D. for Customer.io As you may already know, morning sickness can often be more appropriately called evening sickness or ywigm-urgxrh-gq-the-day sickness. While there are the isabela few, [...] wrist are often available at drugstores or Fly6 stores. Kyle root is used for nausea [...] medication, Doxylamine, is currently marketed as an zhcu-xon-kuwnegl sleeping pill. Ask your practitioner if creating a vitamin B6/Doxylamine combination with jlhf-miy-ifzbxoc medications would be safe for you. Prescription [...] Phenergan, Compazine, Reglan documented in [facility] encounter [facility] 10[facility]14[facility]2022 Discharge summary Note Date/Time October 14, 2022 12:18pm [facility] Medical Records Department [address] [place] [address] Emergency Department Summary 10/14/22 MR#: [id number] Acct: [id number] Name: KINSEY SOTELO Rep #:[id number] : 1990 32 From: Hermilo Christina DO [...] 90.5 H Lymph % (Auto) 6.4 L [place] % (Auto) 2.3 Eos % (Auto) 0.0 [...] (Reason: Nausea) Qty: 10 0RF No Action vit,nnge36-lqcr-tdnem 1 TABLET tablet 1 tab PO DAILY [...] your Primary Care Provider. Call Doctors [facility] ([phone]) or report to the closest Emergency Room. Call 911 if necessary. 10/14/22 1513 <Electronically signed by Hermilo Christina DO> Cosigner Signature (if applicable): CC: No Primary Care Physician ~ Signed [facility] Work Phone: Evaluation noteNo assessment information available [facility] Work Phone: Evaluation note* Diagnosis Encounter for [...] affecting in first trimester, unspecified obesity type ([facility]) Anxiety disorder affecting , antepartum ([facility]) Nausea and vomiting during (HCC) Constipation during in first trimester ([facility]) History of premature rupture of membranes [facility] Diagnosis Encounter for supervision of high risk in first trimester, antepartum ([facility])- Primary 12 weeks gestation of ([facility]) state, incidental Obesity affecting in first trimester, unspecified obesity type ([facility]) Anxiety disorder affecting , antepartum ([facility]) History of gestational hypertension Low TSH level Nonspecific abnormal results of thyroid function study [facility]* Diagnosis Encounter for screening for malformation using ultrasound ([facility])- Primary 12 weeks gestation of ([facility]) state, incidental [facility] Diagnosis 12 weeks gestation of ([facility])- Primary state, incidental Low TSH level Nonspecific abnormal results of thyroid function study documented [facility] encounter [facility]* Diagnosis Low TSH level- Primary Nonspecific abnormal results of thyroid function study 9 weeks gestation of ([facility]) state, incidental [facility] Diagnosis Encounter for anatomic survey ([facility])- Primary Encounter for anatomic survey 18 weeks gestation of ([facility]) state, incidental Obesity affecting in second trimester, unspecified obesity type (HCC) documented [facility]* Diagnosis Encounter for supervision of high risk in second trimester, antepartum ([facility])- Primary 23 weeks gestation of ([facility]) state, incidental Low TSH level Nonspecific abnormal results of thyroid function study Obesity affecting in first trimester, unspecified obesity type ([facility]) History of delivery Anxiety disorder affecting , antepartum ([facility]) History of gestational hypertension Screening for diabetes mellitus Supervision of high risk in second trimester ([facility]) Unspecified high-risk documented in this encounter [facility] for visit Narrative* Diagnostic Procedure Only (Routine) - Closed Specialty Diagnoses / Procedures Referred By Contac t Referred To Contact [facility] Diagnoses with uncertain dates in first trimester (HCC) Procedures OBSTETRIC ULTRASOUND WHI US PREG UTERUS AFTER 1ST TRIMEST GESTATION Fatemeh Holt APRN.STRETCHER HELPER [address] [place] [address] Phone: tel: fax: [facility] [address] [place] [address] Referral ID Status Reason Start Date Expiration Date V isits Requested Visits Authorized [id number] Closed Auto-Generate d Referral 10/26/2024 10/26/2025 1 1 [facility] Summary Purpose Family History No Family History Records FoundNo Family History Records FoundNo Family History Records FoundNo Family History Records FoundNo Family History Records FoundNo Family History Records Found Advance Directives No Advanced Directives Records Found Advance Directive Response Recorded Date/ Time Living Will No October 14, 2022 12:04pm Power of Fast Food Worker No October 14 12:04pm Chief Complaint and Reason for Visit Chief Complaint N/V Additional Source Comments INFORMATION SOURCE (unrecogn ized section and content) DATE CREATED AUTHOR 05/09/2018 [facility] DATE CREATED AUTHOR AUTHOR'S ORGANIZ ATION 07/25/2019 [employer] DATE CREATED AUTHOR AUTHOR'S ORGANIZ ATION 07/27/2019 [facility] DATE CREATED AUTHOR AUTHOR'S ORGANIZ ATION 02/13/2020 [facility] DATE CREATED AUTHOR AUTHOR'S ORGANIZ ATION 10/27/2024 [facility] DATE CREATED AUTHOR AUTHOR'S ORGANIZ ATION 04/28/[address] [facility] Care Teams (unrecognized sec tion and content) [...] or prosecute any alcohol or drug abuse patient.Memorial HospitalIn the event this information is protected by the Federal Confidentiality of Alcohol and Drug Abuse Patient Records regulations: The Federal rules restrict any use of the information to criminally investigate or prosecute any alcohol or drug abuse patient.Mem[facility] HospitalIn the event this information is protected by the Federal Confidentiality of Alcohol and Drug Abuse Patient Records regulations: The Federal rules restrict any use of the information to criminally investigate or prosecute any alcohol or drug abuse patient.Mem[facility] HospitalIn the event this information is protected by the Federal Confidentiality of Alcohol and Drug Abuse Patient Records regulations: The Federal rules restrict any use of the information to criminally investigate or prosecute any alcohol or drug abuse patient.Memorial HospitalIn the event this information is protected by the Federal Confidentiality of Alcohol and Drug Abuse Patient Records regulations: The Federal rules restrict any use of the information to criminally investigate or prosecute any alcohol or drug abuse patient.Memorial HospitalIn the event this information is protected by the Federal Confidentiality of Alcohol and Drug Abuse Patient Records regulations: The Federal rules restrict any use of the information to criminally investigate or prosecute any alcohol or drug abuse patient.Memorial HospitalIn the event this information is protected by the Federal Confidentiality of Alcohol and Drug Abuse Patient Records regulations: The Federal rules restrict any use of the information to criminally investigate or prosecute any alcohol or drug abuse patient.[facility] Reason for Visit (unrecogniz ed section and content) Reason Comments Initial OB Visit Reason Comments US Specialty Diagnoses / Procedures Referred By Contac t Referred To Contact [facility] Diagnoses with uncertain dates in first trimester (HCC) Procedures OBSTETRIC ULTRASOUND WHI US PREG UTERUS AFTER 1ST TRIMEST GESTATION Fatemeh Holt, CAROLEE.STRETCHER HELPER [address] [place] [address] Phone: tel: fax: [facility] [address] [place] [address] Referral ID Status Reason Start Date Expiration Date V isits Requested Visits Authorized [id number] Closed Auto-Generate d Referral 10/26/2024 10/26/2025 1 [...] BE BASED ON THE PRIMARY CLINICAL RECORDS. [facility]. provides no warranty or guarantee of the accuracy or completeness of information in this document.
[2025-05-19 07:48] LABS: Hematocrit 35.3 % (37-47); Hemoglobin 11.6 g/dL (12.0-15.0); Immature Granulocytes Count 0.120 X10^3/uL (0.0-0.0); Mean Corp Hgb Conc 32.9 g/dL (32-36); Mean Corpuscular Volume 86.3 fL (81-99); Mean Platelet Vol. 10.7 fl (6.2-12.0); NRBC Flagged by Analyzer 0 % (0-5); Platelet Count 362 K/mm3 (150-450); RBC Distribution Width CV 14.4 % (11.6-14.6); RBC Distribution Width SD 45.2 fl (35.1-43.9); Red Blood Count 4.09 M/mm3 (4.2-5.4); White Blood Count 13.0 K/mm3 (4.4-11.0)
[2025-05-19] MEDS: Lactated Ringers 1,000 ML 50 ML IV (07:50)
[2025-05-19] MEDS: Oxytocin 15 Units/NS 250ml 15 UNITS/250 ML IV.SOLN 2 UNITS IV (08:13)
[2025-05-19 08:14] LABS: Syphilis Antibodies Nonreactive (Nonreactive)
--- NOTE | 2025-05-19 13:03 | HP.PCM.OB_ITS ---
HPI - General General Date of Admission: 05/19/25 Date of Service: 05/19/25 Chief Complaint: GHTN HPI Narrative JOHN HUGO, is a 35 F who presents IOL for GHTN. Maternal Data Information Final NITIN: 06/08/25 Gestational age: 37+1 PFSH PFS Medical History Polyhydramnios macrosomia delivery Gestational HTN Home Medications ?Medication ?Instructions ?Recorded ?Last Taken ?Type vits,calcium no.78-iron 1 tab PO DAILY pregna ncy 02/23/20 02/22/20 13:30 History fumarate-folic acid 29 mg-1 mg tablet aspirin 81 mg tablet,delayed 81 mg PO DAILY 05/19/25 Unknown History release Allergy/AdvReac Type Severity Reaction Status Date / Time No Known Allergies Allergy Verified 05/19/25 07:37 Surgical History History of tonsillectomy H/O dilation and curettage Social History household members: spouse housing: house Smoking Status: Former smoker History 4 Elective abortions Hx Para 1 Spontaneous abortions Hx # Term Pregnancies Ectopic pregnancies Hx # Pregnancies Multiple births # of living children NST FHR Rate Baby A Baseline: 150 Variability:: Moderate Accelerations:: 15 x 15 Decelerations:: None NST Reactive:: Yes Vital Signs Vital Signs Vital Signs: 05/19/25 07:31 05/19/25 07:31 05/19/25 07:31 Temperature Temperature Source Temporal Pulse Rate 102 H Respiratory Rate Blood Pressure 144/98 H BP Systolic 144 BP Diastolic 98 Pulse Ox 05/19/25 07:31 05/19/25 07:31 05/19/25 07:45 Temperature 98.0 F Temperature Source Pulse Rate 104 H Respiratory Rate 16 Blood Pressure BP Systolic BP Diastolic Pulse Ox 05/19/25 07:45 05/19/25 08:17 05/19/25 08:17 Temperature Temperature Source Pulse Rate 99 Respiratory Rate Blood Pressure 136/89 H BP Systolic 136 BP Diastolic 89 Pulse Ox 97 05/19/25 08:17 05/19/25 08:17 05/19/25 08:17 Temperature Temperature Source Temporal Pulse Rate Respiratory Rate 16 Blood Pressure BP Systolic BP Diastolic Pulse Ox 97 05/19/25 08:17 05/19/25 09:15 05/19/25 09:15 Temperature 99.0 F Temperature Source Pulse Rate 96 Respiratory Rate Blood Pressure 138/94 H BP Systolic 138 BP Diastolic 94 Pulse Ox 05/19/25 09:15 05/19/25 09:15 05/19/25 09:15 Temperature 98.6 F Temperature Source Temporal Pulse Rate Respiratory Rate 16 Blood Pressure BP Systolic BP Diastolic Pulse Ox 05/19/25 10:42 05/19/25 10:42 05/19/25 10:42 Temperature Temperature Source Temporal Pulse Rate 100 Respiratory Rate Blood Pressure 146/76 H BP Systolic 146 BP Diastolic 76 Pulse Ox 05/19/25 10:42 05/19/25 10:42 05/19/25 11:50 Temperature 98.1 F Temperature Source Temporal Pulse Rate Respiratory Rate 16 Blood Pressure BP Systolic BP Diastolic Pulse Ox 05/19/25 11:50 05/19/25 11:50 05/19/25 11:51 Temperature 98.4 F Temperature Source Pulse Rate Respiratory Rate 16 Blood Pressure 131/96 H BP Systolic 131 BP Diastolic 96 Pulse Ox 05/19/25 11:51 05/19/25 12:52 05/19/25 12:52 Temperature Temperature Source Temporal Pulse Rate 103 H 96 Respiratory Rate Blood Pressure BP Systolic BP Diastolic Pulse Ox 05/19/25 12:52 05/19/25 12:52 05/19/25 12:52 Temperature 98.4 F Temperature Source Pulse Rate Respiratory Rate 16 Blood Pressure BP Systolic BP Diastolic Pulse Ox 97 05/19/25 12:53 05/19/25 12:53 Temperature Temperature Source Pulse Rate 100 Respiratory Rate Blood Pressure 138/82 H BP Systolic 138 BP Diastolic 82 Pulse Ox Weight Weight: 111.2 kg Body Mass Index (BMI) 39.5 PRE- weight 97.522 kg PRE- Body Mass Index 34.5 (BMI) Physical Exam Const alert and no apparent distress General Appearance: cooperative HEENT normocephalic Resp normal respiratory effort Cardio regular rate GI soft to palpation GI Narrative: gravid, nontender, appropriate for gestational age Extremity no calf tenderness General Extremity: edema Skin no wounds Rashes: No rashes noted Psych activity/motor behavior normal Labs Labs Labs: Blood Type B POSITIVE Antibody Screen NEGATIVE Hct, (37-47) 35.3 % L Hgb, (12.0-15.0) 11.6 g/dL L Syphilis Total Ab, (Nonreactive) Nonreactive Rhogam given: No Miscellaneous Test Assessment & Plan (1) 37 weeks gestation of : (2) Gestational hyperglycemia: PLAN: Plan Pitocin induction
--- NOTE | 2025-05-19 13:21 | PCM.PN.OB ---
Subjective Subjective AROM for clear fluid. IUPC and FSE placed to better monitor FHR ans contractions Objective Data Objective Data Vital Signs: Vital Signs Temp Pulse Resp BP Pulse Ox 98.4 F 100 16 138/82 H 97 05/19/25 12:52 05/19/25 12:53 05/19/25 12:52 05/19/25 12:53 05/19/25 12:52 Weight: 111.2 kg Body Mass Index (BMI) 39.5 Intake & Output: Intake and Output for Last 24 Hours 05/17/25 05/18/25 05/19/25 23:59 23:59 23:59 Intake Total 18.37 / 18.37 Balance 18.37 / 18.37 Lab / Micro Data 05/19/25 07:35 Labs: Laboratory Results - last 24 hr 05/19/25 07:35: WBC 13.0 H, RBC 4.09 L, Hgb 11.6 L, Hct 35.3 L, MCV 86.3, MCH 28.4, MCHC 32.9, RDW Std Deviation 45.2 H, RDW Coeff of Vicky 14.4, Plt Count 362, MPV 10.7, Immature Gran % (Auto) 0.900, Neut % (Auto) 70.3 H, Lymph % (Auto) 17.3 L, [place] % (Auto) 8.8, Eos % (Auto) 2.4, Baso % (Auto) 0.3, Absolute Neuts (auto) 9.2 H, Absolute Lymphs (auto) 2.25, Nucleated RBC % 0, Syphilis Total Ab Nonreactive, Blood Type B POSITIVE, Antibody Screen NEGATIVE NST FHR Rate Baby A Baseline: 142 Variability:: Moderate Accelerations:: 15 x 15 Decelerations:: None FHR Category:: Category I Assessment & Plan (1) 37 weeks gestation of : (2) Gestational hypertension: QUALIFIERS: Trimester: third trimester Qualified Code(s): O13.3 - Gestational [-induced] hypertension without significant proteinuria, third trimester PLAN: Plan Pitocin per protocol
[2025-05-19] MEDS: Lactated Ringers 1,000 ML 999 ML IV (15:33)
[2025-05-19] MEDS: fentaNYL-bupivacaine (epidural) 100 ML BAG EPIDURAL (16:35)
--- NOTE | 2025-05-19 18:29 | OB.VAGDELI_ITS ---
Assessment & Plan (1) (spontaneous vaginal delivery): (2) Gestational hypertension: QUALIFIERS: Trimester: third trimester Qualified Code(s): O13.3 - Gestational [-induced] hypertension without significant proteinuria, third trimester (3) 37 weeks gestation of : Maternal Data Information Final NITIN: 05/26/25 Gestational age: 37+1 Vaginal Delivery Maternal Presentation Maternal Presentation: Medically Indicated Induction Maternal Presentation: GHTN Type of Induction: Pitocin and Amniotomy Vaginal Delivery Information Procedure Performed: Spontaneous Vaginal Delivery Surgeon/Practitioner: Mary Miller Date of Procedure: 05/19/25 Pre-Procedure Diagnosis: GHTN Post-Procedure Diagnosis: Type of anesthesia: Epidural Estimated Blood Loss: 150 cc Time of Delivery: 18:13 Findings Description of procedure: Once completed patient pushed for 5 contractions. Delivered OA over an intact perineum. The shoulders delivered easily followed by the rest of the body. The cried upon delivery and was placed on the maternal abdomen. The cord was clamped and cut after one minute. The placenta delivered with gentle traction. A 1st degree laceration was repaired with 2-0 Vicryl. All sponge, needle and instrument counts were correct. Presentation: Vertex and DANIEL Amniotic Membrane Rupture Type: Artificial Amniotic Fluid Description: Clear Placental Delivery Description: Spontaneous Placenta Disposition: [facility] Specimen collected: No Cord Vessel Description: 3 Vessels Cord Entanglement: None Infant A Gender: Male (1 minute): 9 (5 minute): 9 Delayed Cord Clamping: Yes Construction Pit Worker cotton roll packer: No Post Vaginal Deli Medications given after delivery: IV Pitocin Episiotomy Description: None Laceration: Midline and 1st degree Complication Complications: No
[2025-05-19] MEDS: Oxytocin 15 Units/NS 250ml 15 UNITS/250 ML IV.SOLN 83 UNITS IV (18:45)
[2025-05-20] VITALS (19 sets, daily range): BP systolic 134–172; BP diastolic 81–100; PULSE 74–93; RESP 16; TEMP 36.2–37.1; O2SAT 97–99
--- NOTE | 2025-05-20 08:51 | PCM.PN.OB ---
Subjective Subjective Doing well. Ambulating and voiding without difficulty. Mild lochia. Breast feeding. Objective Data Objective Data Vital Signs: Vital Signs Temp Pulse Resp BP Pulse Ox O2 Del Method 98.2 F 74 16 139/81 H 98 Room Air 05/20/25 07:55 05/20/25 07:55 05/20/25 07:55 05/20/25 07:55 05/20/25 04:30 05/20/25 04:30 Oxygen Delivery Method Room Air Weight: 111.2 kg Body Mass Index (BMI) 39.5 Intake & Output: Intake and Output for Last 24 Hours 05/18/25 05/19/25 05/20/25 23:59 23:59 23:59 Intake Total 2230.00 / 2230.00 Output Total 1300 / 1300 Balance 930.00 / 930.00 Lab / Micro Data 05/19/25 07:35 Labs: Laboratory Results - last 24 hr 05/19/25 07:35: Blood Type B POSITIVE, Antibody Screen NEGATIVE ROS Constitutional Constitutional: Denies headache(s) Cardiovascular Cardiovascular: Denies chest pain or dyspnea Gastrointestinal Gastrointestinal: Denies nausea or vomiting Genitourinary Genitourinary: Denies dysuria Physical Exam Const alert, oriented x3 and no apparent distress General Appearance: cooperative and comfortable Eyes PERRL and EOMs intact bilaterally Resp normal respiratory effort GI soft to palpation and non-tender Narrative: Fundus firm, below umbilicus. Uterus Palpation: uterus fundus firm ( below umbilicus) Extremity normal to inspection and full ROM Neuro oriented x3 and CN's II-XII intact bilaterally Psych mental status grossly normal Assessment & Plan (1) (spontaneous vaginal delivery): (2) Gestational hypertension: QUALIFIERS: Trimester: third trimester Qualified Code(s): O13.3 - Gestational [-induced] hypertension without significant proteinuria, third trimester PLAN: Plan Desires discharge after 24 hours
--- NOTE | 2025-05-20 13:51 | CASEMGMT ---
Social Work Assessment Labor and Delivery Unit Patient Address: [address] [place] [address] [place] [address] Phone number: [phone] Date of Referral:05/19/25 Time of Referral: 08:08 Referred By: Mary Milelr Date of Intervention: 05/20/2025 Time of Intervention: 13:51 Reason for Referral: ?Other?; Anxiety and father alcoholic history (?s maternal grandfather/MGF) History obtained from: Mother of baby (MOB), father of baby (FONba/Tonio Burns, age 41) and review of medical records. ?? Household composition: JACEY, FOB, their 5-year-old daughter rUvashi and their son Geovanny, born on 05/19/25. Patient's parent/guardian status: MOB and FOB have been together for 6 years and have been for 7 months. MOB denied any previous or current issues of domestic violence and described a positive relationship with the FOB. Medical History: : 4, Para, now 2. JACEY has had 2 IAB?s. JACEY received care through [facility] beginning at 5 weeks and 6 days. Visits in the beginning were noted to be 5-6 weeks in between visits and were closer together thereafter.? Apgars: 9 and 9. ?Weight:3990grams. Engineer Third Assistant: Dr. Jaquelin Ruano. Educational Status: MOB and FOB denied any issues with reading, writing or learning comprehension. MOB and FOB both earned their high school diplomas. Financial Status: MOB and FOB reported that their income is sufficient to meet the needs of their family at this time. 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 ?? Infant Supplies: MOB and FOB reported they have all of the supplies they need for baby at this time including but not limited to: car seat, bassinet, crib, pack-n-play, diapers, bottles, breast pump and clothing. Childcare/Caregiver(s): JACEY reported that as a SAHM, she will be the primary caregiver. MOB and FOB denied any barriers/needs related to childcare/caregiving. Transportation: Both MOB and FOB are licensed drivers and have a reliable vehicle to get baby to and from all medical appointments. MOB and FOB denied any issues/barriers to transportation at this time. Programs/Agencies Involved: MOB and FOB denied any program/agency involvement. Children Services/Legal Issues: MOB and FOB denied any previous or current Children Services and/or legal involvement. Behavioral Health Issues: None reported/denied. ? Mental Health History: MOB has a history of anxiety which MOB stated was related. MOB reported she hasn?t had any anxiety symptoms since the 2nd trimester. MOB is not on any medications. FOB denied any MH history. Substance Use History: MOB and FOB denied any history or current drug and/or alcohol abuse. ? Family History: MOB reported ?s MGF is an alcoholic and a schizophrenic, however reported she didn?t have contact with her father growing up. MOB denied any other family history of mental health and/or drug or alcohol abuse Drug Screens: None obtained for the MOB or baby during this admission. Family/Social Stressors:?? Denied. Support Systems: MOB identified her biggest support as the FOB, family as well as both of their families. Depression/Shaken Baby/Safe Sleeping: Shop Girl provided verbal and written education on PPD, increased risk factors for PPD, (MOB denied getting PPD with her first-born and denied any current depression and/or depressive symptoms) Safe Sleeping and Shaken Baby.? MOB and FOB both verbalized an understanding.??? ASSESSMENT: MOB and FOB provided consent to social work visit. Upon arrival, the MOB was in the bed and the FOB was nearby on the couch holding . MOB and FOB were both verbally engaged, and cooperative. Shop Girl observed positive interaction between the MOB and FOB as well with the MOB and FOB towards . During the time the FOB was holding , he was observed to be very gentle and at times was observed to rub ?s face. At the end of the assessment, nephrology social worker requested to speak with the MOB alone, which MOB and FOB were both agreeable to. FOB handed to the MOB also appeared to be attached and bonded to . MOB was also very gentle, began nursing and smiled and provided comfort when would cry. MOB reported feeling safe in her home and denied any previous or current domestic violence, unmanaged mental health issues either with herself or with the FOB and also denied any concerns with any drug or alcohol abuse either with herself or with the FOB. Safe Plan of Care for infant related to substance use: N/A PLAN: For MOB and baby to be discharged when medically ready. No other services requested or indicated. Mary Weller, DIGITAL ANALYTICS MANAGER, MOBILE MARKETING MANAGER
--- NOTE | 2025-05-20 18:04 | PCM.DC.SUM ---
Providers Date of Admission: 05/19/25 Date of Discharge: 05/20/25 Primary Care Physician: Cammie Primary Care Phys Reason For Visit: VAG DELIVERY Diagnosis Discharge Diagnosis (1) (spontaneous vaginal delivery): Status: Acute Code(s): O80 - Encounter for full-term uncomplicated delivery (2) Gestational hypertension: Status: Acute Code(s): O13.9 - Gestational [-induced] hypertension without significant proteinuria, unspecified trimester Qualifiers: Trimester: third trimester Qualified Code(s): O13.3 - Gestational [-induced] hypertension without significant proteinuria, third trimester Plan Desires discharge after 24 hours Medications at Discharge Home Medications vits,calcium no.78-iron fumarate-folic acid 29 mg-1 mg tablet 1 tab PO DAILY 02/23/20 nifedipine 30 mg tablet,extended release 24 hr 30 mg PO DAILY #30 tabs 05/20/25 Hospital Course Operations None Procedures None Summary of Care Provided Minutes Spent on Discharge: 20 Hospital Course: Pitocin IOL. without complication. Physical Exam Const alert and no apparent distress Narrative: Fundus firm, below umbilicus. Weight / BMI Weight Weight: 111.2 kg Body Mass Index (BMI) 39.5 PRE- weight 97.522 kg PRE- Body Mass Index 34.5 (BMI) ABG / Lab / Microbiology Data 05/19/25 07:35 D/C Instructions May resume sexual activity in: 6 weeks DC O2, CPAP, BIPAP Needs Home O2 Discharge instructions: No Please Follow Up With: Katherine Montesinos MD When: Follow up with our office in 1-2 and 6 weeks or as needed. [phone] Meaningful Use Info Meaningful Use Meaningful Use Diagnoses (Choose all that apply): None applicable Discharge Plan Admission Admit Date/Time: 05/19/25 07:14 Primary Reason for Your Visit: induction Attending Provider: Mary Miller Primary Care Provider: Care Physician,Cammie Primary Discharge Orders/Prescriptions Prescriptions: New nifedipine 30 mg Tablet Extended Release 24hr 30 mg PO DAILY Qty: 30 0RF Continued vit,gill 71-[id number]-tpusc 1 TABLET tablet 1 tab PO DAILY Discontinued aspirin 81 mg tablet,delayed release (DR/EC) 81 mg PO DAILY Referrals / Follow Up: Care Physician,No Primary [Primary Care Provider, Medical] Disposition Disposition (needs filled in before D/C Order can be placed): Against Medical Advice
[2025-05-20] MEDS: NIFEdipine 30 MG Tablet PO (21:02)
--- NOTE | 2025-05-20 21:03 | PCM.PN.OB ---
Subjective Subjective BP elevated. Started on Procardia 10 mg IR. No improvement in BP but patient does not wasn't stay. Plans to leave AMA. Reviewed risks of untreated BP including seizures. Has BP cuff at home and states will take Procardia at home. With no improvement after the first dose Meds may not help at home. Discussed BP check in office. Aware she could be readmitted for BP and will need magnesium at that time. Feels that her BP is just related to fatigue and caffeine. Denies GRANT or vision changes. Aware she needs to check BP at home and return if any symptoms. present and agrees with plan Objective Data Objective Data Vital Signs: Vital Signs Temp Pulse Resp BP Pulse Ox O2 Del Method 98.3 F 80 16 167/100 H 99 Room Air 05/20/25 19:28 05/20/25 20:57 05/20/25 19:28 05/20/25 20:57 05/20/25 19:28 05/20/25 19:28 Oxygen Delivery Method Room Air Weight: 111.2 kg Body Mass Index (BMI) 39.5 Intake & Output: Intake and Output for Last 24 Hours 05/18/25 05/19/25 05/20/25 23:59 23:59 23:59 Intake Total 2230.00 / 2230.00 Output Total 1300 / 1300 Balance 930.00 / 930.00 Lab / Micro Data 05/19/25 07:35 Assessment & Plan (1) (spontaneous vaginal delivery): (2) Gestational hypertension: QUALIFIERS: Trimester: third trimester Qualified Code(s): O13.3 - Gestational [-induced] hypertension without significant proteinuria, third trimester PLAN: Plan Pt leaving AMA with elevated BP
--- NOTE | 2025-05-20 21:16 | NURSING ---
Dr Miller bedside to discuss risks to patient of going home with high blood pressure. Pt verbalized understanding and choosing to leave AMA. Pt agrees to be seen in office on Thursday and states she will monitor blood pressures at home and return to hospital if BP remains high or if she develops symptoms.
== END 2025-05-20 21:50 | disposition left against medical advice (07) | DRG 807 ==
PROVIDERS: Admitting Provider Obstetrics & Gynecology; Visit Provider Obstetrics & Gynecology
DX: O13.4 Gestational [pregnancy-induced] hypertension without significant proteinuria, complicating childbirth (principal); Z37.0 Single live birth; O70.0 First degree perineal laceration during delivery; Z53.29 Procedure and treatment not carried out because of patient's decision for other reasons; Z3A.37 37 weeks gestation of pregnancy; Z79.82 Long term (current) use of aspirin; Z87.891 Personal history of nicotine dependence; Z87.59 Personal history of other complications of pregnancy, childbirth and the puerperium
CPT/HCPCS: 59050; 85025; 86780; 86850; 86900; 86901; 99221; G0378